=== PATIENT | female | born 1970 | race Caucasian/White ===

== ENCOUNTER 2018-11-30 08:57 | Emergency (ER) | payer MEDICAID, SELFPAY ==
[2018-11-30 08:58] VITALS: BP 114/74; PULSE 101; RESP 16; TEMP 36.9; O2SAT 100; BMI 32.1
--- NOTE | 2018-11-30 09:10 | ED.VISSUMM ---
- ER Visit Summary Date of Service: 11/30/18 Chief Complaint: [Gingival erythema and dental pain] History of Present Illness: The patient is a 48 F [presents the emergency department with complaint of redness and swelling to her gums as well as some mild dental discomfort. Patient states that she was recently in [facility] where they were treating her with what she believed was Zithromax. Patient states her gums started to feel better but then she was released from [facility] and over the last couple weeks she is had increased discomfort. Patient [facility] however they told her they would need to make her an appointment to see the dentist. Patient's mostly concerned about infection as she has a foul taste in her mouth at times. Patient denies any fevers. Patient states that she has bad dentition and has had most her life. Patient has had multiple dental extractions in the past and feels like she may need to have all her teeth pulled.] Physical Examination: [HEENT-PERRLA, EOMI. Cranial nerves II through XII grossly intact. TMs clear. Mucous membranes moist. No adenopathy. Dental-patient has diffuse faint erythema of the upper gingiva as well as lower gingiva. Patient has diffuse tenderness to palpation of the upper teeth. She is had multiple dental extractions. There is no discrete abscess noted. Uvula midline with no trismus. There is no facial erythema or cellulitis. No adenopathy. Cardiovascular-regular rate and rhythm without murmur or ectopy Lungs-clear to auscultation, chest wall stable without crepitus or subcu emphysema Abdomen-normoactive bowel sounds, soft, nontender, no rebound or rigidity, no peritoneal signs. Extremities-intact ?4, normal range of motion, normal pulses, atraumatic] Test Results: [None indicated] Emergency Department Course and Treatment: [Patient will be started on clindamycin and given first dose in the emergency department] Treatment Plan: [She will be treated with clindamycin and given a list of dentists in the area.] Disposition: [Discharged home in stable condition. Patient advised to return if increasing redness, pain, fever, swelling, or condition should worsen anyway.] Impression: [Dental pain Gingivitis] This note was generated with [employer] dictation software. It may contain incorrect words, spelling, and punctuation that were not noted in review of the chart prior to signing ED Disposition - Plan for ED Patient: Referrals: NOT,DEFINED [Primary Care Provider] -
--- NOTE | 2018-11-30 09:13 | ED.DCSUM_ITS ---
- ER Visit Summary Date of Service: 11/30/18 Chief Complaint: [Gingival erythema and dental pain] History of Present Illness: The patient is a 48 F [presents the emergency department with complaint of redness and swelling to her gums as well as some mild dental discomfort. Patient states that she was recently in group home where they were treating her with what she believed was Zithromax. Patient states her gums started to feel better but then she was released from group home and over the last couple weeks she is had increased discomfort. Patient tried to walk into the free clinic today however they told her they would need to make her an appointment to see the dentist. Patient's mostly concerned about infection as she has a foul taste in her mouth at times. Patient denies any fevers. Patient states that she has bad dentition and has had most her life. Patient has had multiple dental extractions in the past and feels like she may need to have all her teeth pulled.] Physical Examination: [HEENT-PERRLA, EOMI. Cranial nerves II through XII grossly intact. TMs clear. Mucous membranes moist. No adenopathy. Dental- patient has diffuse faint erythema of the upper gingiva as well as lower gingiva. Patient has diffuse tenderness to palpation of the upper teeth. She is had multiple dental extractions. There is no discrete abscess noted. Uvula midline with no trismus. There is no facial erythema or cellulitis. No adenopathy. Cardiovascular-regular rate and rhythm without murmur or ectopy Lungs-clear to auscultation, chest wall stable without crepitus or subcu emphysema Abdomen-normoactive bowel sounds, soft, nontender, no rebound or rigidity, no peritoneal signs. Extremities-intact ?4, normal range of motion, normal pulses, atraumatic] Test Results: [None indicated] Emergency Department Course and Treatment: [Patient will be started on clindamycin and given first dose in the emergency department] Treatment Plan: [She will be treated with clindamycin and given a list of dentists in the area.] Disposition: [Discharged home in stable condition. Patient advised to return if increasing redness, pain, fever, swelling, or condition should worsen anyway.] Impression: [Dental pain Gingivitis] This note was generated with [employer] dictation software. It may contain incorrect words, spelling, and punctuation that were not noted in review of the chart prior to signing ED Disposition - Plan for ED Patient: Referrals: NOT,DEFINED [Primary Care Provider] -
--- NOTE | 2018-11-30 09:13 | ED.DEP ---
ED Disposition - Plan for ED Patient: Instructions: ED Tooth Pain, Understanding Gingivitis Prescriptions: Clindamycin HCl [Cleocin] 300 mg PO Q6H #40 cap Referrals: NOT,DEFINED [Primary Care Provider] - Additional Instructions: see a dentist
[2018-11-30] MEDS: Clindamycin HCl 150 MG Capsule 300 MG PO (09:27)
[2018-11-30 09:38] VITALS: TEMP 36.9
== END 2018-11-30 09:40 | disposition home or self-care (01) ==
PROVIDERS: Emergency Provider Emergency Medicine
DX: K08.89 Other specified disorders of teeth and supporting structures (principal); K05.10 Chronic gingivitis, plaque induced; Z72.0 Tobacco use
CPT/HCPCS: 99282

== ENCOUNTER 2019-09-29 18:50 | Emergency (ER) | payer MEDICAID, SELFPAY ==
[2019-09-29 18:51] VITALS: BP 104/69; PULSE 106; RESP 16; TEMP 36.9; O2SAT 99; BMI 29.2
--- NOTE | 2019-09-29 19:02 | ED.VIS.GEN ---
History of Present Illness Chief Complaint: General Illness Informant: Patient Onset: Yesterday Current Severity: Moderate Maximum Severity: Moderate Narrative: Patient presents primarily secondary to right ear pain that started yesterday. She states she had cough and congestion for the past couple of weeks. Yesterday she developed significant right ear pain. She also complains of heartburn symptoms. She has been taking quite a bit of ibuprofen with her recent illness. She currently takes something [id number] for reflux. She does not currently the primary care physician. Past Medical History - Allergies and Home Meds Allergies/Adverse Reactions: Allergies Penicillins [PCN] Allergy (Verified 11/30/18 08:57) Anaphylaxis Primary Care Physician: Care Physician,No Primary [Primary Care Provider] - Prior records reviewed: Yes Past Medical History: None Smoking Status: Current every day smoker Review of Systems General: Denies: Fever Eyes: Denies: Visual changes - bilaterally ENT: Reports: Right ear pain Cardiovascular: Denies: Chest pain Respiratory: Reports: Cough, - - Wheezing at night Gastrointestinal: Reports: Abdominal pain, - - Reflux Genitourinary: Denies: Dysuria Musculoskeletal: Denies: Myalgias, Extremity Pain Skin: Denies: Rash Neurological: Denies: Headache Hematologic: Denies: Easy bruising, Easy bleeding Allergy: Denies: Uticaria Physical Exam Vital Signs/Narrative: Vital Signs Temp Pulse Resp BP Pulse Ox 09/29/19 18:51 98.4 F 106 H 16 104/69 99 Inital Vital Signs reviewed: Yes General: Well nourished, Well developed Head: Normocephalic Eyes: Perrl, EOMI ENT: Moist mucous membranes, - - Right TM erythematous and bulging. Left TM normal. Posterior pharynx examination unremarkable. Neck: Supple Cardiovascular: Regular rate, Regular rhythm Respiratory: No distress, CTA bilaterally Abdomen: Soft, Nontender, Normal bowel sounds Extremities: Nontender Skin: Normal color, No rash Neurological: Alert, Oriented x3 Psychological: Normal affect Diagnostic/Tx/Re-eval - Medical Decision Making Patient does have evidence of right otitis media. Antibiotics for this will cover bronchitis so I do not think an x-ray of her chest will really change our management at this time. Patient voices understanding and agreement. She does have a penicillin allergy and will be treated with a course of Zithromax. She will also be given Pepcid here for reflux and written a prescription for Prilosec. ED Disposition - Plan for ED Patient: Disposition: Home or Assisted Living Diagnosis: Otitis media, GERD (gastroesophageal reflux disease) Instructions: OTITIS MEDIA, Abx Tx (Adult), GERD (Adult) Prescriptions: Omeprazole [Prilosec] 20 mg PO DAILY #30 cap Transmission Status: Pending to [place] [address] [facility]. Azithromycin [Zithromax] 250 mg PO DAILY #4 tab Transmission Status: Pending to [facility] [facility]. Referrals: Fabrice Navarrete MD [STAFF PHYSICIAN] - As Needed
[2019-09-29] MEDS: Famotidine 20 MG Tablet 40 MG PO (19:13)
[2019-09-29] MEDS: Azithromycin 250 MG Tablet 500 MG PO (19:13)
== END 2019-09-29 19:33 | disposition home or self-care (01) ==
LOC: ED 19:22
PROVIDERS: Emergency Provider Emergency Medicine
DX: H66.91 Otitis media, unspecified, right ear (principal); K21.9 Gastro-esophageal reflux disease without esophagitis; F17.200 Nicotine dependence, unspecified, uncomplicated
CPT/HCPCS: 99283

== ENCOUNTER → 2020-12-22 16:05 | Outpatient (CLI) | payer MEDICAID, SELFPAY ==
[2020-12-22 15:37] VITALS: BMI 29.2
[2020-12-22 16:58] LABS: Absolute Neutrophil Count 6.5 X10^3/uL (2.0-7.7); Basophil# 0.06 X10^3/uL; Basophil% 0.6 % (0-1); Hematocrit 44.6 % (37-47); Hemoglobin 13.7 g/dL (12.0-15.0); Mean Corp Hgb Conc 30.7 g/dL (32-36); Mean Corpuscular Hgb 29.3 pg (27.0-32.0); Mean Corpuscular Volume 95.5 fL (81-99); Mean Platelet Vol. 9.1 fl (6.2-12.0); Monocyte# 0.64 X10^3/uL; Monocyte% 6.4 % (0-10); NRBC Flagged by Analyzer 0 % (0-5); Neutrophil # 6.46 X10^3/uL (2.7-7.7); Neutrophil % 64.7 % (47-70); Platelet Count 415 K/mm3 (150-450); RBC Distribution Width CV 14.1 % (11.6-14.6); RBC Distribution Width SD 49.1 fl (35.1-43.9); Red Blood Count 4.67 M/mm3 (4.2-5.4)
[2020-12-22 17:28] LABS: Anion Gap 4 (5-15); BUN 13 mg/dL (7-18); BUN/Creat Ratio 13.7 RATIO (10-20); Chloride 104 mmol/L (98-107); Creatinine, Serum 0.95 mg/dL (0.55-1.02); EST Glomerular Filtration Rate 66 mL/min (>60); Est Glom Filt Rate - Afr Amer 80 mL/min (>60); Glucose 94 mg/dL (74-106); Sodium Level 141 mmol/L (136-145); Thyroid Stim Hormone (TSH) 3.45 uIU/mL (0.358-3.74)
== END ==
PROVIDERS: PCP Family Medicine; Referring Provider Family Medicine; Visit Provider Family Medicine
DX: K21.9 Gastro-esophageal reflux disease without esophagitis (principal)
CPT/HCPCS: 36415; 80048; 84443; 85025

== ENCOUNTER → 2021-05-12 10:23 | Outpatient (CLI) | payer MEDICAID, SELFPAY ==
[2021-05-12 12:17] LABS: Absolute Lymphocyte Count 1.87 X10^3/uL (0.83-4.51); Absolute Neutrophil Count 4.1 X10^3/uL (2.0-7.7); Basophil# 0.01 X10^3/uL; Basophil% 0.1 % (0-1); Eosinophil# 0.03 X10^3/uL; Eosinophils% 0.4 % (0-5); Hematocrit 45.1 % (37-47); Hemoglobin 13.9 g/dL (12.0-15.0); Lymphocyte # 1.87 X10^3/ul (0.83-4.51); Lymphocyte % 27.4 % (19-41); Mean Corp Hgb Conc 30.8 g/dL (32-36); Mean Corpuscular Hgb 28.9 pg (27.0-32.0); Mean Corpuscular Volume 93.8 fL (81-99); Mean Platelet Vol. 9.5 fl (6.2-12.0); Monocyte# 0.76 X10^3/uL; Monocyte% 11.1 % (0-10); NRBC Flagged by Analyzer 0 % (0-5); Neutrophil # 4.12 X10^3/uL (2.7-7.7); Neutrophil % 60.4 % (47-70); Platelet Count 331 K/mm3 (150-450); RBC Distribution Width CV 15.2 % (11.6-14.6); RBC Distribution Width SD 52.7 fl (35.1-43.9); Red Blood Count 4.81 M/mm3 (4.2-5.4); White Blood Count 6.8 K/mm3 (4.4-11.0)
[2021-05-12 12:39] LABS: Vitamin B12 486 pg/mL (211-911); Vitamin D,25 Hydroxy 22.1 ng/mL
[2021-05-12 12:40] LABS: ALB/GLOB Ratio 0.7 RATIO (0.9-2.4); AST(SGOT) 31 U/L (15-37); Alanine Aminotransfer ALT/SGPT 37 U/L (13-56); Alkaline Phosphatase 59 U/L (45-117); Anion Gap 2 (5-15); BUN 13 mg/dL (7-18); BUN/Creat Ratio 13.7 RATIO (10-20); Calcium,Total 8.7 mg/dL (8.5-10.1); Chloride 102 mmol/L (98-107); Creatinine, Serum 0.95 mg/dL (0.55-1.02); EST Glomerular Filtration Rate 66 mL/min (>60); Est Glom Filt Rate - Afr Amer 80 mL/min (>60); Globulin 4.1 g/dL (2.2-4.2); Glucose 89 mg/dL (74-106); Potassium 5.3 mmol/L (3.5-5.1); Protein, Total 7.1 g/dL (6.4-8.2); Sodium Level 135 mmol/L (136-145); Thyroid Stim Hormone (TSH) 8.71 uIU/mL (0.358-3.74); Uric Acid 4.2 mg/dL (2.6-6.0)
== END ==
PROVIDERS: PCP Family Medicine; Referring Provider Physician Assistant; Visit Provider Physician Assistant
DX: R60.0 Localized edema (principal); F32.9 Major depressive disorder, single episode, unspecified; M25.579 Pain in unspecified ankle and joints of unspecified foot; R20.8 Other disturbances of skin sensation; Z51.81 Encounter for therapeutic drug level monitoring
CPT/HCPCS: 36415; 80053; 82306; 82607; 84443; 84550; 85025

== ENCOUNTER 2021-09-20 18:43 | Outpatient (CLI) | payer MEDICAID, SELFPAY ==
--- NOTE | 2021-09-20 18:45 | CT_ITS ---
INDICATION: upper abdominal pain EXAMINATION: CT Abdomen And Pelvis W/ Contrast Injection TECHNIQUE: Helically acquired images were obtained of the abdomen and pelvis after IV contrast. A radiation dose optimization technique was used for this scan. IV Contrast dosage and agent: Oral and amp; IV Readi-CAT and amp; 100mL Isovue-300 Oral contrast: None. COMPARISON: None. FINDINGS: Visualized lung bases: Unremarkable Liver: Unremarkable Gallbladder: Unremarkable Spleen: Unremarkable Pancreas: Unremarkable Adrenal Glands: Unremarkable Kidneys: Bilateral renal cysts largest measures 1.5 cm and is in the right kidney. Vasculature: Unremarkable GI Tract: Hiatal hernia measures 6 cm in diameter. Lymphadenopathy: None Peritoneum: No ascites. Bladder: Unremarkable Reproductive organs: Unremarkable Bones/Soft tissues: Anterior abdominal hernia at the midline superior to the umbilicus measures [address]/Abdomen/Pelvis WITH Contrast IMPRESSION: Bilateral renal cysts largest measures 1.5 cm and is in the right kidney. Hiatal hernia measures 6 cm in diameter. Anterior abdominal hernia at the midline superior to the umbilicus measures 8 cm containing fat. Electronically Signed: Amor Zaman MD at 2:21 EST ,
== END 2021-09-20 23:59 | disposition home or self-care (01) ==
LOC: CT 18:44
PROVIDERS: PCP Family Medicine; Visit Provider Family Medicine
DX: K44.9 Diaphragmatic hernia without obstruction or gangrene (principal); K46.9 Unspecified abdominal hernia without obstruction or gangrene; N28.1 Cyst of kidney, acquired
CPT/HCPCS: 74177; Q9967

== ENCOUNTER 2021-10-07 08:23 | Day surgery (SDC) | payer MEDICAID, SELFPAY ==
[2021-10-07] VITALS (7 sets, daily range): BP systolic 90–108; BP diastolic 56–86; PULSE 89–96; RESP 16–18; TEMP 36.2–36.8; O2SAT 93–99; BMI 36.3
--- NOTE | 2021-10-07 | GASB_PTH ---
PATIENT: BRITTANY ELDER LOC: EN U#:[id number] AGE/SX: 50/F ROOM: RE10/07/[address]: Dr. Drake Mejia MD : 1970 BED: DIS: 10/07/2021 SPEC #: [id number] RECD: 10/07/21 14:40 STATUS: SHARIFA JOSH #: [id number] DERIAN: 10/07/21 00:[address]: Drake Mejia DEPT: SURGICAL PATHOLOGY RECD BY: Tremaine Frederick ENTERED: 10/08/21 10:00 SP TYPE: Gastric Bx OTHR DR: Dr. Javier Rivero DO Tissues: A - Gastric mucous membrane B - Gastric mucous membrane C - Gastric mucous membrane D - Gastric mucous membrane Procedures: Special Stain Group II Surgery Specimen Level IV Alcian Blue/PAS (control) HEADER OPERATION: EGD ([facility]) biopsy PRE-OP DIAGNOSIS: GERD, hiatal hernia TISSUE SUBMITTED: A ? Antrum biopsy for H. pylori and path, B ? GE junction biopsy, C ? White plaque gastric cardia biopsy, D ? Random gastric body biopsy MICROSCOPIC DIAGNOSIS A. Gastric antrum, biopsy: Mild chronic inflammation. See comment. B. Gastroesophageal junction, biopsy: Mild chronic inflammation. No evidence of goblet cell metaplasia. See comment. C. Gastric cardia, biopsy: Minimal chronic inflammation. No evidence of malignancy. See comment. D. Gastric mucosa, random biopsy: Minimal chronic inflammation. AM:dickson 10/11/2021 COMMENT A. The results of immunohistochemistry for Helicobacter pylori will be reported separately ([id number]). B. Alcian blue/PAS stain with matched control supports the above diagnosis. C. Immunohistochemistry ([id number]) supports the above diagnosis. Case has been reviewed in consultation with Dr. Adamson who concurs with the above diagnosis. IDC:SJ MICROSCOPIC DESCRIPTION Slides are reviewed. GROSS DESCRIPTION A - Received in fixative is one container labeled with the patient's name and designated antrum biopsy. The specimen consists of two irregular fragments of light gonsalez soft tissue that in aggregate measure 0.5 x 0.4 x 0.1 cm. The specimen is totally submitted in one cassette. B - Received in fixative is one container labeled with the patient's name and designated GE junction biopsy. The specimen consists of multiple irregular fragments of light gonsalez soft tissue that in aggregate measure 1 x 0.5 x 0.1 cm. The specimen is totally submitted in one cassette. C - Received in fixative is one container labeled with the patient's name and designated white plaque gastric cardia biopsy. The specimen consists of multiple irregular fragments of light gonsalez soft tissue that in aggregate measure 1 x 0.3 x 0.1 cm. The specimen is totally submitted in one cassette. D - Received in fixative is one container labeled with the patient's name and designated random gastric body biopsy. The specimen consists of two irregular fragments of light gonsalez soft tissue that in aggregate measure 0.4 x 0.3 x 0.1 cm. The specimen is totally submitted in one cassette. / SJ:rg 10/08/2021 TC:3 CPT: 66239 x4, 26959
[2021-10-07] MEDS: Lactated Ringers 1,000 ML 15 ML IV (09:11)
--- NOTE | 2021-10-07 09:30 | IMM_PTH ---
PATIENT: BRITTANY ELDER LOC: EN U#:[id number] AGE/SX: 50/F ROOM: RE10/07/[address]: Dr. Drake Mejia MD : 1970 BED: DIS: 10/07/2021 SPEC #: [id number] RECD: 10/08/21 09:30 STATUS: SHARIFA RERebekah #: [id number] DERIAN: 10/07/21 09:[address]: Drake Mejia DEPT: IMMUNOHISTOCHEMISTRY RECD BY: Francesca Eric ENTERED: 10/08/21 09:31 SP TYPE: IMMUNO OTHR DR: Dr. Javier Rivero DO Tissues: A - Stomach, NOS C - Gastric mucous membrane Procedures: H Pylori (initial) CK20 (add) CK7 (add) MACRO (add) P53 (add) Vimentin (add) Pankeratin (initial) S-100 (add) PHYSICIAN & INSTITUTION [place] [id number] SPECIMEN INFORMATION: Tissue Source: A ? Antrum biopsy, C ? White plaque gastric cardiac biopsy Clinical Info: GERD, hiatal hernia Specimen Number: [id number] A & C CPT code: 50591 x2, 18414 x6 METHODOLOGY: Deparaffinized sections of prefer/formalin-fixed tissue or PAP/DQ stained slides are incubated with monoclonal/polyclonal antibodies/oligonucleotide probes. Localization is made via biotin free immunoperoxidase method. Appropriate controls are performed and reacted as expected. Results on target cell population are indicated in the following table: RESULTS: ANTIBODY / CLONE RESULT Block A H Pylori (polyclonal) negative Block C AE1-3 (AE1/AE3/PCK26) negative CK7 (OV-TL12/30) negative CK20 (KS20.8) positive Vimentin (V9) negative Macro (HAM-56) negative S-100 (4C4.9) negative P53 (DO-7) negative These tests were developed and their performance characteristics determined by [facility]. They may not have been cleared or approved by the U.[place]. Food and Drug Administration. The FDA has determined that such clearance or approval is not necessary. The above immunohistochemical/dualISH markers are ordered and reviewed by the pathologist. INTERPRETATION: A. Antrum biopsy: Negative for Helicobacter pylori organisms. C. White plaque gastric cardiac biopsy: No evidence of malignancy. AM:dickson 10/12/2021
--- NOTE | 2021-10-07 10:39 | HP.PCM_ITS ---
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: No Is patient in pain?: No Allergies Penicillins [PCN] Allergy (Verified 09/30/21 13:58) Anaphylaxis Medications fluticasone propionate 50 mcg/actuation nasal spray,suspension 1 spray INTRANASAL BID PRN #16 g 05/12/21 [Rx Confirmed 09/30/21] cetirizine 5 mg tablet 5 mg PO DAILY PRN #30 tab 09/15/21 [Rx Confirmed 09/30/21] furosemide 40 mg tablet 40 mg PO Q OTHER DAY #30 tab 09/15/21 [Rx Confirmed 09/30/21] lansoprazole 30 mg capsule,delayed release 30 mg PO DAILY #30 cap 09/15/21 [Rx Confirmed 09/30/21] levothyroxine 50 mcg tablet 50 mcg PO DAILY #30 tab 09/15/21 [Rx Confirmed 09/30/21] promethazine-DM 6.25 mg-15 mg/5 mL oral syrup 5 ml PO Q6H PRN #118 ml 09/22/21 [Rx Confirmed 09/30/21] PFSH Medical History Arthritis Chronic neck pain Depression GERD (gastroesophageal reflux disease) Surgical History History of hysterectomy Family History Grandmother Cancer cervical Diabetes Other Anxiety Arthritis Social History Smoking Status: Current every day smoker tobacco type: cigarettes Tobacco: How many years used: 35 alcohol intake: never substance use type: does not use what type of physical activity do you participate in: walking frequency: daily HPI HPI HPI: BRITTANY ROBERTSON, is a 50 F who presents to the office today for complaints of heartburn, acid reflux, and newly?recognized abdominal wall hernia. They are referred for surgical consultation from Dr. Rivero. Patient states that her reflux has been present for years but has become worse over the last year. She states that the symptoms occur despite faithful use of Prevacid. Symptoms include aspirating in her sleep?particularly when lying flat as well as some bloating and nausea/vomiting. She notes some food triggers being milk, tomato sauces, and coffee. She has taken measures to try to reduce her consumption of these triggers. She states she works third shift so it is sometimes challenging to plan her eating times, but that she eats when she feels flatter. Despite the symptoms, she has experienced approximately 40 pound weight gain in the last 6 months. She admits this is due to too many calories and to little exercise. She is a current everyday smoker. Patient has a history of an EGD performed which she estimates was approximately 12 years ago at [facility]. She was told that she has high acid, but does not recall any other significant findings. Around the same time, a gallbladder work-up was begun. While she had some sludge, she was not told there is any indication for surgical intervention. She believes that her gallbladder does give her trouble from time to time since she has had a number of other family members who have required removal of theirs. However, she states that when she has abdominal pain that radiates to her back?this is at least partially improved through the use of Prevacid. She has not had any recent imaging of this structure. Along with the patient's upper scope, she states that she underwent a colonoscopy 6 to 7 years ago. She relates that there were no polyps found, but she was also not given any specific follow-up instructions. She states the scope was occasioned by a history of constipation. She states that the symptoms persist, but she is able to have a bowel movement once daily. She denies any blood with these bowel movements. There is minimal straining with a stool and she estimates it takes 5 to 6 minutes to pass a stool. She does relay that she has a positive family history with a paternal grandmother who was diagnosed with colon cancer in her 40s. She denies any family history for IBD or diverticulitis. Mrs. Robertson also comments on a new abdominal wall hernia. She states that she is unsure how it came to be. She has not had any prior surgery in this area (confirming a surgical history of partial hysterectomy and tubal ligation). 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 She also states that she had a bad cough develop over the last couple of years and questions whether this may be related. She believes her hernia has been present for the last [address] nataly ging of the abdomen pelvis was recently obtained (09/20/2021) and shows the ventral hernia (as well as a hiatal hernia) containing fat. ROS General General: Yes weight change and fatigue; No appetite, colon cancer, breast cancer or weakness HEENT HEENT: No difficulty swallowing, eye injury, eye surgery, swollen glands or hoarseness Endo Endocrine: Yes thyroid disease; No diabetes mellitus, thyroid cancer, Hair loss, heat intolerance or cold intolerance Skin Skin: No rash or changing moles Musc Musculoskeletal: Yes back problems and arthritis; No rheumatoid arthritis, gout or joint pain Cardio Cardiovascular: No murmur, pacemaker, heart disease, atrial fibrillation, high blood pressure, heart attack, heart stent, palpitations, shortness of breat with exertion or chest pain Psych Psychiatric: Yes depression; No anxiety or hearing voices Resp Respiratory: Yes shortness of breath, No sleep apnea, Yes cough, No COPD, No asthma, No emphysema and No wheezing Gastro Gastrointestinal: Yes abdominal pain, Yes nausea or vomiting, Yes diarrhea, Yes constipation, No blood in stool, Yes acid reflux, No hemorrhoids, No ulcers, Yes gallbladder problem and No black,tarry stools Jesús Hematologic: No blood thinners, No blood disorders, No bleeding, No anemia and No blood clots Neuro Neurologic: No system reviewed and no additional complaints, except as documented, No as per HPI, No abnormal gait, No abnormal hearing, No abnormal movements, No abnormal speech, No behavioral changes, No burning sensations, No confusion, No convulsions, No disequilibrium, No dizziness, No localized weakness, No frequent falls, No headache(s), No lack of coordination, No loss of vision, No memory loss, No numbness, No other visual disturbances, No radicular pain, No restless legs, No sensory deficit, No syncope, No tingling, No tremor(s), No weakness and No other Exam Const General: cooperative, healthy appearing and no acute distress Nutritional Appearance: obese Orientation: alert, awake and oriented x3 Resp Effort & Inspection: normal respiratory effort Auscultation: clear to auscultation bilaterally, no rales, no rhonchi and no wheezes Cardio Heart Sounds: murmur systolic GI Inspection: obesity and no scars Palpation: hernia ventral (Supraumbilical, tender with palpation, soft, reducible) and tender in the epigastrum; Gar's sign negative Assessment and Plan Assessment and Plan (1) Ventral hernia: Status: Acute Comment: This is a 50-year-old female with a newly?diagnosed ventral hernia containing fat. At this time, patient experiences very little discomfort from this accor ding to her history. She is uncertain and timing of when it first occurred. I have shared with her that this could certainly be addressed surgically, but that her current use of tobacco and recent weight gain would potentially jeopardize her ability to realize a durable repair. Plan - Dr. Drake Mejia MD: ?Continue watchful waiting for now. And plan to prioritize patient's GERD symptoms and hiatal hernia at this time. Patient is encouraged to consider weight loss and smoking cessation (2) Tobacco use: Status: Chronic Comment: 7 cigarettes/day - Roughly 35 pack year history. This tobacco use along with patient's history of GERD increases her risk for esophageal carcinoma. Given that is been some 12 years since her last EGD, I have recommended repeating this exam. This would serve 2 purposes as patient has a hiatal hernia noted on her recent CT imaging from 09/20/2021. I would like to begin work-up for potential hiatal hernia repair and antireflux surgery. Plan - Dr. Drake Mejia MD: Repeat EGD under local MAC (3) GERD (gastroesophageal reflux disease): Status: Acute Comment: Patient with regular reflux symptoms despite chronic use of PPI. This is likely owing to the fact that she does have a rather large hiatal hernia?release per CT imaging. We will begin work-up for this issue with upper endoscopy. I have briefly introduced the topic of fundoplication and the need for an esophagram and manometry as well. Patient encouraged to make lifestyle modifications with timing of eating and continue Prevacid. Plan - Dr. Drake Mejia MD: EGD under local MAC (4) Hiatal hernia: Status: Acute Comment: CT imaging from 09/20/2021 shows hiatal hernia, as mentioned above. Given the structural abnormality, patient is still experiencing breakthrough reflux despite PPI medication. With her limited prior surgical history, she could be a good candidate for hiatal hernia repair with fundoplication. We will plan to begin this work-up with repeat EGD under MAC. Plan - Dr. Drake Mejia MD: EGD under local MAC with tentative plans to continue work-up towards antireflux procedure with hiatal hernia repair (5) Family history of colon cancer: Status: Acute Comment: This is a 50-year-old female with a positive family history of colon cancer in her paternal grandmother (who was diagnosed in her 40s). While patient did have a prior colonoscopy 6 to 7 years ago, she continues to deal with constipation. She is also uncertain whether the findings of her prior scope would have pushed her into a closer interval surveillance. Since we are planning for a EGD, I have recommended that we also proceed with updating her colonoscopy. She is accepting of this recommendation and wishes to proceed as described. Plan - Dr. Drake Mejia MD: Colonoscopy under local MAC. Patient advised that she will require a armored car driver the day of the procedure and we discussed a clear liquid diet 2 days before her procedure with her history of constipation. Coding Level of Care Code Off vis,est,level 4 Diagnoses Ventral hernia K43.9 Tobacco use Z72.0 GERD (gastroesophageal reflux disease) K21.9 Hiatal hernia K44.9 Family history of colon cancer Z80.0 I have re-examined the patient. There are no clinical changes since date of exam. Patient confirms that she completed her prep and her output is now clear. She denies any abdominal pain. She denies any questions regarding the procedure. Plan to proceed for scheduled EGD and update screening colonoscopy under local MAC.
--- NOTE | 2021-10-07 10:52 | OP.EGD_ITS ---
Patient Name: Alena Robertson Procedure Date: 10/07/2021 9:46 AM Date of : 1970 Age: 50 Procedure: Upper GI endoscopy Indications: Gastro-esophageal reflux disease Providers: Drake Mejia MD Referring MD: Drake Mejia MD Medicines: See the Anesthesia note for documentation of the administered medications Patient Profile: Refer to note in patient chart for documentation of history and physical. Patient has symptoms of chronic heartburn. Complications: No immediate complications. Estimated blood loss: Minimal. Procedure: Pre-Anesthesia Assessment: - The heart rate, respiratory rate, oxygen saturations, blood pressure, adequacy of pulmonary ventilation, and response to care were monitored throughout the procedure. After obtaining informed consent, the endoscope was passed under direct vision. Throughout the procedure, the patient's blood pressure, pulse, and oxygen saturations were monitored continuously. The Endoscope was introduced through the mouth, and advanced to the second part of duodenum. The upper GI endoscopy was somewhat difficult due to the patient's agitation. Successful completion of the procedure was aided by increasing the dose of sedation medication. The patient tolerated the procedure. Scope In: 9:58:07 AM Scope Withdrawal Time 0 hours 18 minutes 8 seconds Scope Out: 10:28:31 AM Total Procedure Duration Time 0 hours 30 minutes 24 seconds Findings: The first portion of the duodenum and second portion of the duodenum were normal. No biopsies or other specimens were collected for this exam. Localized mild inflammation characterized by erythema was found in the gastric antrum. Biopsies were taken with a cold forceps for histology. Biopsies were taken with a cold forceps for Helicobacter pylori cultures. Estimated blood loss was minimal. Diffuse nodular mucosa was found in the gastric body. Biopsies were taken with a cold forceps for histology. Estimated blood loss was minimal. A single 8 mm mucosal papule (nodule) with no bleeding and no stigmata of recent bleeding was found in the cardia. Biopsies were taken with a cold forceps for histology. Estimated blood loss was minimal. A large hiatal hernia was present. No biopsies or other specimens were collected for this exam. The Z-line was regular and was found 35 cm from the incisors. Biopsies were taken with a cold forceps for histology. Estimated blood loss was minimal. Coagulation for hemostasis of bleeding caused by the procedure using heater probe was successful. No gross lesions were noted in the proximal esophagus and in the mid esophagus. No biopsies or other specimens were collected for this exam. Impression: - Normal first portion of the duodenum and second portion of the duodenum. No specimens collected. - Gastritis. Biopsied. - Nodular mucosa in the gastric body. Biopsied. - A single mucosal papule (nodule) found in the stomach. Biopsied. - Large hiatal hernia. No specimens collected. - Z-line regular, 35 cm from the incisors. Biopsied. Treated with a heater probe. - No gross lesions in esophagus. No specimens collected. Recommendation: - Discharge patient to home (via wheelchair). - Clear liquid diet today. - Await pathology results. - Telephone my office for pathology results in 1 week. - Continue present medications. Procedure Code(s): --- Professional --- 84033, Esophagogastroduodenoscopy, flexible, transoral; with biopsy, single or multiple Diagnosis Code(s): --- Professional --- K29.70, Gastritis, unspecified, without bleeding K31.89, Other diseases of stomach and duodenum K21.9, Gastro-esophageal reflux disease without esophagitis K44.9, Diaphragmatic hernia without obstruction or gangrene CPT copyright 2017 [employer]. All rights reserved. The codes documented in this report are preliminary and upon dentistry professor review may be revised to meet current compliance requirements. Drake Mejia MD 10/07/2021 10:51:50 AM This report has been signed electronically. Number of Addenda: 0 Note Initiated On: 10/07/2021 9:46 AM
--- NOTE | 2021-10-07 10:53 | OP.CCLET_ITS ---
10/07/2021 Javier Rivero Re : Upper GI endoscopy procedure for Alena Robertson Dear Dr. Rivero This procedure was performed on September. My impressions and recommendations are as follows: Impressions : - Normal first portion of the duodenum and second portion of the duodenum. No specimens collected. - Gastritis. Biopsied. - Nodular mucosa in the gastric body. Biopsied. - A single mucosal papule (nodule) found in the stomach. Biopsied. - Large hiatal hernia. No specimens collected. - Z-line regular, 35 cm from the incisors. Biopsied. Treated with a heater probe. - No gross lesions in esophagus. No specimens collected. Recommendations : - Discharge patient to home (via wheelchair). - Clear liquid diet today. - Await pathology results. - Telephone my office for pathology results in 1 week. - Continue present medications. My findings are described in the full procedure note, which is enclosed. If I can be of further assistance, please feel free to contact me at Doctor phone number(s): , Work: . Sincerely, Drake Mejia MD 10/07/2021 10:51:50 AM This report has been signed electronically.
== END 2021-10-07 23:59 | disposition home or self-care (01) ==
LOC: EN 08:24 → AC 08:24
PROVIDERS: PCP Family Medicine; Referring Provider Family Medicine; Visit Provider Surgery
PROC: 0DJD8ZZ Inspection of Lower Intestinal Tract, Via Natural or Artificial Opening Endoscopic (ICD-10-PCS; CPT 45378; principal; 2021-10-07 09:25)
DX: K21.9 Gastro-esophageal reflux disease without esophagitis (principal); K29.50 Unspecified chronic gastritis without bleeding; K44.9 Diaphragmatic hernia without obstruction or gangrene; K31.89 Other diseases of stomach and duodenum; F17.210 Nicotine dependence, cigarettes, uncomplicated; Z20.822 Contact with and (suspected) exposure to COVID-19; Z80.0 Family history of malignant neoplasm of digestive organs
CPT/HCPCS: 43239; 87426; 88305; 88313; 88341; 88342; C9803; J7120

== ENCOUNTER → 2021-12-14 | Outpatient (CLI) | payer MEDICAID, SELFPAY ==
[2021-12-14 19:19] LABS: Anion Gap 10 (5-15); BUN 17 mg/dL (7-18); BUN/Creat Ratio 18.6 RATIO (10-20); Calcium,Total 9.4 mg/dL (8.5-10.1); Chloride 100 mmol/L (98-107); Creatinine, Serum 0.92 mg/dL (0.55-1.02); EST Glomerular Filtration Rate 69 mL/min (>60); Est Glom Filt Rate - Afr Amer 83 mL/min (>60); Glucose 106 mg/dL (74-106); Potassium 3.6 mmol/L (3.5-5.1); Sodium Level 139 mmol/L (136-145)
== END | disposition home or self-care (01) ==
LOC: BIMLAB 13:51
PROVIDERS: Physician Assistant; PCP Family Medicine; Referring Provider Family Medicine; Visit Provider Family Medicine
DX: R60.0 Localized edema (principal); E87.1 Hypo-osmolality and hyponatremia; E87.5 Hyperkalemia; E03.9 Hypothyroidism, unspecified
CPT/HCPCS: 36415; 80048; 84443

== ENCOUNTER → 2022-06-09 | Outpatient (CLI) | payer MEDICAID, SELFPAY ==
[2022-06-09 08:36] LABS: Bacteria 0 SEEN /hpf (None Seen); Mucous, Urine 0 SEEN /hpf (<or=2+); Red Blood Cells-Urine 0 SEEN /hpf (0-5); Squamous Epithelial Cells - UA 0 SEEN /hpf (5-10); White Blood Cells 0 SEEN /hpf (0-5)
[2022-06-09 12:49] LABS: Color, Urine Yellow (Yellow); Glucose, Dipstick Normal (Normal); Ketone-Dipstick Negative (Negative); Leukocyte Esterase-Dipstick Negative /ul (Negative); Nitrite-Dipstick Negative (Negative); Occult Blood-Urine Negative /ul (Negative); Protein-Dipstick Negative (Negative); Urine Bilirubin Dipstick Negative (Negative); Urine Clarity Clear (Clear); Urine Urobilinogen Normal (Normal)
== END | disposition home or self-care (01) ==
LOC: BIMLAB 08:34
PROVIDERS: PCP Family Medicine; Referring Provider Physician Assistant; Visit Provider Physician Assistant
DX: R39.15 Urgency of urination (principal)
CPT/HCPCS: 81001; 87086; 87088

== ENCOUNTER → 2023-08-29 | Outpatient (CLI) | payer MEDICAID, SELFPAY ==
--- NOTE | 2023-08-29 13:01 | CDU_ITS ---
Reason For Study: carotid stenosis Rt. Velocities/BP Lt. Velocities/BP Prox CCA 69.2/40.9 cm/sec. Prox CCA 84.4/27.7 cm/sec. Mid CCA 67.4/33.3 cm/sec. Mid CCA 139.4/49.9 cm/sec. Dist CCA 69.2/36.2 cm/sec. Dist CCA 126.6/44.4 cm/sec. Prox ICA 36.2/23.9 cm/sec. Prox ICA 456.4/168.5 cm/sec. Mid ICA 57.0/30.5 cm/sec. Mid ICA 224.0./52.4 cm/sec. Dist ICA 46.6/28.6 cm/sec. Dist ICA 156.3/44.8 cm/sec. Rt. ICA/CCA = .8. Lt. ICA/CCA = 3.3. Prox ECA 58.9/25.8 cm/sec. Prox ECA 218.0/53.3 cm/sec. Rt. Vert. 42.8/27.7 cm/sec. Lt. Vert. 69.5/35.8 cm/sec. Right Extracranial There is homogeneous, smooth atherosclerotic plaque noted in the right common carotid artery. There is heterogeneous, irregular atherosclerotic plaque noted in the right internal carotid artery. There is intimal thickening but no significant atherosclerotic plaque noted in the right external carotid artery. Antegrade flow is noted in the right vertebral artery. Left Extracranial There is homogeneous, smooth atherosclerotic plaque noted in the left common carotid artery. There is heterogeneous, irregular atherosclerotic plaque noted in the left internal carotid artery. There is homogeneous, smooth atherosclerotic plaque noted in the left external carotid artery. Retrograde flow noted in the left vertebral artery. Procedure Carotid Duplex 19840. This is a Carotid Duplex examination using B-mode, color flow and specral Doppler. The exam was diagnostic. Prelim called to Dr. Vera's office. Exam performed in department. VL/Carotid Duplex Ultrasound Interpretation Summary Mild (<50%) stenosis right extracranial internal carotid. Severe (>70%) stenosi s left extracranial internal carotid. Flow within the right verterbral artery is antegrade. Flow wi thin the left verterbral artery is retrograde, consistent with a subclavian steal phenomenon. Ordering Physician: Brian Vera Performed By: Fady Bartholomew RVT
--- NOTE | 2023-08-29 13:02 | ADUUE_ITS ---
Reason For Study: PVD, aftercare RIGHT Innominate 246.9 cm/s. Right Subclavian velocity = 157.1 cm/sec. Right Axillary velocity = 61.1 cm/sec. Right Brachial velocity = 81.9 cm/sec. Right Radial velocity = 78.6 cm/sec. Right Ulnar velocity = 55.6 cm/sec. VL/US Art Duplex Unilat UP Extrem Interpretation Summary No stenosis seen right arm with biphasic flow noted. Ordering Physician: Brian Vera Performed By: Fady Bartholomew RVT
--- NOTE | 2023-08-29 13:02 | ART_ITS ---
Reason For Study: PVD Procedure A bilateral upper extremity continuous wave Doppler with analog waveform analysis and segmental pressures. Left Segmental Pressures Left brachial= 88mmHg. Left forearm by way of the radial artery = 89mmHg. Left radial= 95mmHg. Left ulnar= 96mmHg. The left radial waveforms are biphasic. The left ulnar waveforms are biphasic. Right Segmental Pressures Right brachial= 103mmHg. Right forearm pressure by way of the radial artery = 117mmHg. Right radial= 113mmHg. Right ulnar= 119mmHg. The right radial waveforms are biphasic. The right ulnar waveforms are biphasic. Indices Right RA index 1.1 Right UA index 1.16. Left RA index .92 Left UA index .93. VL/Ankle Brachial Index Interpretation Summary Bilateral arms normal WBI at rest. Ordering Physician: Brian Vera Performed By: Fady Bartholomew RVT
== END | disposition home or self-care (01) ==
PROVIDERS: PCP Family Medicine; Referring Provider Surgery Vascular Surgery; Visit Provider Surgery Vascular Surgery
DX: Z48.812 Encounter for surgical aftercare following surgery on the circulatory system (principal); I73.9 Peripheral vascular disease, unspecified; I77.1 Stricture of artery; I65.23 Occlusion and stenosis of bilateral carotid arteries; I10 Essential (primary) hypertension; Z86.73 Personal history of transient ischemic attack (TIA), and cerebral infarction without residual deficits
CPT/HCPCS: 93880; 93922; 93931

== ENCOUNTER → 2024-09-02 | Outpatient (CLI) | payer MEDICAID, SELFPAY ==
[2024-09-02 17:13] LABS: ALB/GLOB Ratio 0.9 RATIO (0.9-2.4); AST(SGOT) 13 U/L (15-37); Alanine Aminotransfer ALT/SGPT 24 U/L (13-56); Albumin, Serum 3.4 g/dL (3.2-5.0); Alkaline Phosphatase 71 U/L (45-117); Anion Gap 7 (5-15); BUN 9 mg/dL (7-18); BUN/Creat Ratio 10.2 RATIO (10-20); Calcium,Total 9.2 mg/dL (8.5-10.1); Chloride 102 mmol/L (98-107); Cholesterol 137 mg/dL (200); Creatinine, Serum 0.88 mg/dL (0.55-1.02); EST Glomerular Filtration Rate 71 mL/min (>60); Est Glom Filt Rate - Afr Amer 86 mL/min (>60); Globulin 3.8 g/dL (2.2-4.2); Glucose 125 mg/dL (74-106); High Density Lipoprotein 44 mg/dL; Protein, Total 7.2 g/dL (6.4-8.2); Sodium Level 139 mmol/L (136-145); Triglycerides 98 mg/dL; Very Low Density Lipoprotein 20 mg/dL (5-40)
== END | disposition home or self-care (01) ==
LOC: BIMLAB 14:41
PROVIDERS: PCP Family Medicine; Referring Provider Family Medicine; Visit Provider Family Medicine
DX: E03.9 Hypothyroidism, unspecified (principal); Z86.73 Personal history of transient ischemic attack (TIA), and cerebral infarction without residual deficits
CPT/HCPCS: 36415; 80053; 80061; 84443

== ENCOUNTER → 2024-11-29 | Outpatient (CLI) | payer BC, SELFPAY | END | disposition home or self-care (01) | LOC: LAB 10:39 → LABSPEC 10:39 | PROVIDERS: PCP Family Medicine; Referring Provider Surgery; Visit Provider Surgery | DX: K43.9 Ventral hernia without obstruction or gangrene (principal) | CPT/HCPCS: 87077; 87081 ==

== ENCOUNTER → 2025-01-02 | Outpatient (CLI) | payer MEDICARE, MEDICAID, SELFPAY ==
--- OUTSIDE RECORDS SUMMARY | 2025-01-02 06:07 | XMS RPT_ITS | CCD ---
Author Organization [facility] Care Team Providers Care Desktop Administrator Name Role Phone Dr. Edison Rivero Primary Care Provider [phone] Dr. Edison Rivero Attending Provider [phone] Dr. Edison Rivero Referring Provider [phone] Dr. Drake Mejia Attending Provider Dr. Drake Mejia Other Provider EDISON RIVERO DO Primary Care Physician Dr. Edison Rivero Primary Care Provider [phone] Dr. Edison Rivero Referring Provider ROSA Gifford Attending Provider Unavailab Dr. Edison Mandel Primary Care Provider [phone] Dr. Edison Rivero Attending Provider Dr. Edison Rivero Referring Provider EIDSON RIVERO DO Primary Care Unavailable LUIS VERA MD Attending Unavailable EDISON RIVERO DO Primary Care Unavailable LUIS VERA MD Attending Unavailable Dr. Edison Rivero DO Primary Care Provider Dr. Edison Rivero DO Attending Provider [phone] Dr. Edison Rivero DO Referring Provider [phone] Dr. Drake Mejia MD Attending Provider Dr. Drake Mejia MD Referring Provider Edison Rivero Referring Unavailable Edison Rivero Primary Care Unavailable Drake Mejia Attending Unavailable Edison Rivero Primary Care Unavailable Edison Rivero Attending Unavailable Edison Rivero Referring Unavailable Edison Rivero Primary Care Unavailable Drake Mejia Attending Unavailable Drake Mejia Referring Unavailable Edison Rivero Primary Care Unavailable Edison Rivero Attending Unavailable Edison Rivero Referring Unavailable Allergies Allergy Classification Reported Allergen(s) Allergy Type Date of Onset Reaction(s) Facility (5 sources) Penicillins; Translations: [Penicillins] Allergy to substance 12-14-2021 Anaphylaxis [facility] (5 sources) Penicillin; Translations: [penicillins] Drug Allergy [facility] Medications Current Medications Medication Drug Class(es) Dates Sig (Normalized) Sig (Original) [id number] 200 actuat albuterol 0.09 mg/actuat metered dose inhaler (3 sources) beta2-Adrenergic Agonist Start: 05-31-2022 Albuterol Sulfate 90 mcg/actuation HFA aerosol inhaler Active 2 NMA INHALATION EVERY 6 HOURS as needed May 31, 2022 12:00am Start: 05-31-2022 take 1 puff(s) by in halation every six hours Albuterol Sulfate Active 2 PUFF INHALATION EVERY 6 HOURS May 30, 2022 11:00pm atorvastatin 40 mg oral tablet (14 sources) HMG-CoA Reductase Inhibitor Start: 05-29-2022 End: 11-21-2024 take 1 tablet by mouth once daily Atorvastatin 40 mg tablet Active 40 mg PO DAILY November 21, 2024 3:29pm cephalexin 500 mg oral tablet (1 source) Cephalosporin Antibacterial Start: 05-18-2022 End: 05-25-2022 cephalexin 500 mg oral tablet Dose : 500 mg = 1 tab(s), Oral, QID, X 7 day(s), # 28 tab(s), 0 Refill(s), 05/25/22 8:37:00 EDT, Finger pain Chemical burn, 82 Start Date: 05/18/22 Stop Date: 05/25/22 Status: Ordered chlorhexidine gluconate 40 mg/ml medicated liquid soap (1 source) Start: 12-03-2024 Chlorhexidine Gluconate (Hibiclens) 4 % liquid Active 1 NMA TOPICAL ONCE 473 December 03, 2024 12:00am shower with once daily x1 week clopidogrel 75 mg oral tablet (10 sources) [id number] Platelet Inhibitor Start: 05-29-2022 End: 10-23-2024 take 1 tablet by mouth once daily Clopidogrel 75 mg tablet Active 75 mg PO DAILY October 23, 2024 3:43pm fluticasone propionate 0.05 mg/actuat metered dose nasal spray (6 sources) Corticosteroid Start: 05-12-2021 End: 05-03-2023 Fluticasone Propionate 50 mcg/actuation spray,suspension Active 1 NMA INTRANASAL TWICE A DAY as needed for allergies, congestion May 03, 2023 3:45pm administer into each nostril Start: 05-12-2021 End: 05-03-2023 take 1 spray(s) nasal route twice daily Fluticasone Propionate Active 1 SPRAY INTRANASAL TWICE A DAY May 03, 2023 2:45pm administer into each nostril furosemide 40 mg oral tablet (20 sources) Loop Diuretic Start: 02-03-2021 End: 04-23-2024 take 1 tablet by mouth every other day Furosemide 40 mg tablet Active 40 mg PO every other day April 23, 2024 12:52pm ibuprofen 800 mg oral tablet (1 source) Nonsteroidal Anti-inflammatory Drug Start: 05-18-2022 End: 05-25-2022 ibuprofen 800 mg oral tablet Dose : 800 mg = 1 tab(s), Oral, TID, PRN for pain, X 7 day(s), # 21 tab(s), 0 Refill(s), 05/25/22 8:37:00 EDT, Finger pain Chemical burn Start Date: 05/18/22 Stop Date: 05/25/22 Status: Ordered lansoprazole 30 mg delayed release oral capsule (20 sources) Proton Pump Inhibitor Start: 12-23-2020 End: 10-23-2024 take 1 capsule by mouth once daily Lansoprazole (Prevacid) 30 mg capsule,delayed release(DR/EC) Active 30 mg PO DAILY October 23, 2024 3:43pm levothyroxine sodium 0.075 mg oral tablet (19 sources) l-Thyroxine Start: 09-03-2024 take 1 tablet by mouth once daily Levothyroxine 75 mcg tablet Active 75 ug PO DAILY September 03, 2024 4:02pm Start: 06-14-2022 levothyroxine 50 mcg (0.05 mg) oral tablet 0 Refill(s) Start Date: 06/14/22 Status: Ordered Start: 09-15-2021 End: 09-03-2024 take 1 tablet by mouth once daily Levothyroxine (Synthroid) 50 mcg tablet Discontinued 50 ug PO DAILY 90 January 04, 2023 1:58pm August 16, 2023 4:20pm Claritin (1 source) Start: 09-20-2015 Claritin Dose : 10 mg =, 0 Refill(s) Start Date: 09/20/15 Status: Ordered methylPREDNISolone 4 mg oral tablet (1 source) Corticosteroid Start: 01-02-2019 Medrol Dosepak 4 mg oral tablet 1 pkt, Oral, Daily, # 21 tab(s), 0 Refill(s) Start Date: 01/02/19 Status: Ordered Mupirocin (1 source) RNA Synthetase Inhibitor Antibacterial Start: 12-03-2024 Mupirocin 2 % ointment Active 1 NMA TOPICAL TWICE A DAY December 03, 2024 12:00am apply to qtip into bilateral nares x1week Tirzepatide (Mounjaro) 2.5 mg/0.5 mL pen injector (1 source) Start: 11-11-2024 Tirzepatide (Mounjaro) 2.5 mg/0.5 mL pen injector Active 2.5 mg SC EVERY WEEK November 11, 2024 12:00am for 4 weeks trolamine salicylate 100 mg/ml topical cream (1 source) Start: 01-02-2019 apply 1 dose topically four times daily as needed for pain trolamine salicylate topical 10% cream Dose = 1 kristie, Topical, QID, PRN for pain, # 90 gram(s), 0 Refill(s) Start Date: 01/02/19 Status: Ordered Completed/Discontinued Medications Medication Drug Class(es) Dates Sig (Normalized) Sig (Original) acetaminophen 500 mg oral capsule (6 sources) Start: 08-04-2022 End: 11-29-2024 take 1 capsule by mouth every six hours as needed for pain Acetaminophen 500 mg capsule Discontinued 500 mg PO EVERY 6 HOURS as needed for pain May 22, 2023 6:07pm November 29, 2024 9:25am albuterol MDI (90 mcg/inh) CFC free inhalation aerosol (4 sources) Start: 05-29-2022 End: 06-28-2022 take 2 puff(s) by inhalation four times daily as needed for wheezing albuterol MDI (90 mcg/inh) CFC free inhalation aerosol 2 puff(s), Inhalation, QID, PRN as needed for wheezing, # 18 gram(s), 0 Refill(s), Pharmacy: [facility] #[id number], 157.5, cm, 05/22/22 4:33:00 EDT, Height Start Date: 05/29/22 Stop Date: 06/28/22 Status: Ordered azithromycin 250 mg oral tablet (4 sources) Macrolide Antimicrobial Start: 09-29-2019 End: 12-22-2020 take 1 tablet by mouth once daily Azithromycin 250 MG tablet Discontinued 250 mg PO DAILY September 29, 2019 1:00am December 22, 2020 3:28pm bisacodyl 5 mg delayed release oral tablet (4 sources) Stimulant Laxative Start: 10-25-2021 End: 05-31-2022 take 4 tablets by mouth once in the evening Bisacodyl (Dulcolax (Bisacodyl)) 5 mg tablet,delayed release (DR/EC) Discontinued 20 mg PO ONCE October 25, 2021 12:00am May 31, 2022 10:20am Take 4 tablets by mouth at 2:00 pm capsaicin 1 mg/ml topical cream (3 sources) Start: 06-09-2022 End: 12-22-2022 Capsaicin 0.1 % cream Discontinued 1 NMA TOPICAL 2 to 3 times per day as needed for pain June 09, 2022 1:00am December 22, 2022 3:10pm do not wash area for at least 30 min after application cetirizine hydrochloride 5 mg oral tablet (9 sources) Histamine-1 Receptor Antagonist Start: 05-12-2021 End: 05-31-2022 take 1 tablet by mouth once daily as needed Cetirizine 5 mg tablet Discontinued 5 mg PO DAILY as needed for allergy symptoms September 15, 2021 3:31pm May 31, 2022 9:35am Start: 09-20-2015 ZyrTEC qDay, 0 Refill(s) Start Date: 09/20/15 Status: Ordered dextromethorphan hydrobromide 3 mg/ml / promethazine hydrochloride 1.25 mg/ml oral solution (4 sources) Phenothiazine, Uncompetitive C-csupnt-D-aspartate Receptor Antagonist, Sigma-1 Agonist Start: 09-22-2021 End: 12-14-2021 take 1 mL by mouth every six hours as needed for cough Promethazine-Dm 6.25-15 mg/5 mL syrup Discontinued 5 mL PO EVERY 6 HOURS as needed for cough 118 September 22, 2021 1:00am December 14, 2021 1:16pm Start: 09-22-2021 End: 12-14-2021 take 1 mL by mouth every six hours Promethazine-Dm Discontinued 5 ML PO EVERY 6 HOURS 118 September 22, 2021 12:00am December 14, 2021 12:16pm magnesium citrate 58.2 mg/ml oral solution (4 sources) Start: 10-25-2021 End: 12-14-2021 Magnesium Citrate solution Discontinued 296 mL PO ONCE October 25, 2021 12:00am December 14, 2021 1:16pm Drink One (1) bottle two (2) days prior to colonoscopy Start: 10-25-2021 End: 12-14-2021 Magnesium Citrate Discontinu ed 296 ML PO ONCE October 24, 2021 11:00pm December 14, 2021 12:16pm Drink One (1) bottle two (2) days prior to colonoscopy melatonin 5 mg oral tablet (13 sources) Start: 06-14-2022 melatonin 1 mg oral tablet Dose : 1 mg = 1 tab(s), Oral, qHS, PRN as needed for insomnia, # 90 tab(s), 0 Refill(s) Start Date: 06/14/22 Status: Ordered Start: 06-14-2022 RA MELATONIN 5 MG TABLET RA MELATONIN 5 MG TABLET, 0 Refill(s), 77.3 Start Date: 06/14/22 Status: Ordered Start: 06-09-2022 End: 11-29-2024 take 1 tablet by mouth at bedtime as needed for sleep Melatonin 5 mg tablet Discontinued 5 mg PO BEDTIME as needed for sleep May 03, 2023 3:45pm November 29, 2024 9:25am naproxen 500 mg oral tablet (1 source) Nonsteroidal Anti-inflammatory Drug Start: 09-20-2015 End: 09-30-2015 Naprosyn 500 mg oral tablet Dose : 500 mg = 1 tab(s), PO, BID, PRN as needed for pain, # 20 tab(s), 0 Refill(s) Start Date: 09/20/15 Stop Date: 09/30/15 Status: Ordered Nicotine (3 sources) Cholinergic Nicotinic Agonist Start: 05-31-2022 End: 07-20-2022 apply 1 dose transdermal route once daily, then apply 1 dose transdermal route once daily Nicotine 21-14-7 mg/24 hr patch, TD daily, sequential Discontinued 0 TD .COMPLEX 56 May 31, 2022 12:00am July 20, 2022 3:36pm apply 1-21 mg NICOTINE PATCH daily for 28 days; follow with 1-14 mg PATCH daily for 14 days, then 1-7mg PATCH daily for 14 days transdermal Start: 05-31-2022 End: 07-20-2022 apply 1 dose transdermal route once daily, then apply 1 dose transdermal route once daily Nicotine Discontinued 0 TD .COMPLEX 56 May 30, 2022 11:00pm July 20, 2022 2:36pm apply 1-21 mg NICOTINE PATCH daily for 28 days; follow with 1-14 mg PATCH daily for 14 days, then 1-7mg PATCH daily for 14 days transdermal Start: 05-31-2022 apply 1 dose transde rmal route once daily, then apply 1 dose transdermal route once daily Nicotine Active 0 TD .COMPLEX 56 May 30, 2022 11:00pm apply 1-21 mg NICOTINE PATCH daily for 28 days; follow with 1-14 mg PATCH daily for 14 days, then 1-7mg PATCH daily for 14 days transdermal ofloxacin 3 mg/ml otic solution (4 sources) Quinolone Antimicrobial Start: 05-12-2021 End: 05-19-2021 Ofloxacin 0.3 % drops Discontinued 10 NMA OTIC DAILY 10 May 12, 2021 12:00am May 18, 2021 12:00am May 19, 2021 12:01am omeprazole 20 mg delayed release oral capsule (5 sources) Proton Pump Inhibitor Start: 09-29-2019 End: 05-12-2021 take 1 capsule by mouth once daily Omeprazole 20 MG capsule Discontinued 20 mg PO DAILY September 29, 2019 1:00am May 12, 2021 9:47am Start: 09-20-2015 PriLOSEC (NF) Oral, qDay, 0 Refill(s) Start Date: 09/20/15 Status: Ordered polyethylene glycol 3350 84297 mg powder for oral solution (4 sources) Osmotic Laxative Start: 10-25-2021 End: 12-14-2021 Polyethylene Glycol 3350 (Miralax) 17 gram/dose powder Discontinued 0 PO .COMPLEX 238 October 25, 2021 12:00am December 14, 2021 1:16pm Mix with gatorade and start colonoscopy mixture at 4 pm Start: 10-25-2021 End: 12-14-2021 Polyethylene Glycol 3350 (Mi ralax) 17 gram/dose powder Discontinued 0 PO .COMPLEX 238 October 24, 2021 11:00pm December 14, 2021 12:16pm Mix with gatorade and start colonoscopy mixture at 4 pm povidone-iodine 100 mg/ml topical solution (2 sources) Antiseptic Start: 08-04-2022 End: 05-03-2023 Povidone-Iodine (Betadine) 10 % solution Discontinued 1 NMA TOPICAL 2 to 4 times per day as needed for disinfection August 04, 2022 1:00am May 03, 2023 3:33pm predniSONE 50 mg oral tablet (1 source) Start: 04-28-2021 End: 05-03-2021 predniSONE 50 mg oral tablet Dose : 50 mg = 1 tab(s), Oral, qDayM, # 5 tab(s), 0 Refill(s), Pain of left ankle joint Start Date: 04/28/21 Stop Date: 05/03/21 Status: Ordered sertraline 50 mg oral tablet (5 sources) Serotonin Reuptake Inhibitor Start: 12-23-2020 End: 09-15-2021 take 1 tablet by mouth once daily Sertraline 50 mg tablet Discontinued 50 mg PO DAILY December 23, 2020 12:00am September 15, 2021 3:16pm terbinafine 250 mg oral tablet (4 sources) Allylamine Antifungal Start: 01-04-2023 End: 11-29-2024 take 1 tablet by mouth once daily Terbinafine Hcl 250 mg tablet Discontinued 250 mg PO DAILY May 03, 2023 3:45pm November 29, 2024 9:25am Problems Active Problems Problem Classification Problem Date Documented Date Episodic/Chronic Abdominal hernia (16 sources) Hernia of anterior abdominal wall; Translations: [Ventral hernia without obstruction or gangrene] Onset: 12-04-2024 Episodic Comment on above: This is a 50-year-ol d female with a newly diagnosed ventral hernia containing fat. At this time, patient experiences very little discomfort from this according to her history. She is uncertain and timing of when it first occurred. I have shared with her that this could certainly be addressed surgically, but that her current use of tobacco and recent weight gain would potentially jeopardize her ability to realize a durable repair.Update 11/29/2024: Patient now a 54-year-old female with interval CVA, thankfully recovered, who has developed increasing discomfort from her ventral hernia. By exam it is difficult to reliably determine the diameter of her fascial defect or the contents of the hernia. It is possible that the neck remains relatively stable in size and she has simply herniated more of her viscera into the hernia sac, but if my exam is true she would otherwise have experience approximately doubling in the size of the hernia. This is based on CT imaging from 2021 that showed the diameter of the epigastric hernia at 3 cm but my exam now showing a possible fascial defect of 6 cm. Further, patient complains of some increased discomfort around the time of bowel movements. It is with the above uncertainty in these reports of negative impact of bowel movements that I would like to obtain updated CT imaging. It is my hope that this will show, clearly, the size of the fascial defect, the contents of the hernia, and thereby inform a surgical approach. At 6 cm patient should still be a candidate for primary fascial defect closure with mesh underlay. (Patient was noted to have an additional smaller umbilical hernia in 2021 and we will look to reevaluate this hernia as well) would plan to attempt this robotically. Patient is once again informed that her obesity and persistent smoking habit remain risks for recurrence. Given the interest in updated imaging I have encouraged her to begin the prescribed Mounjaro as a means of beginning her weight loss journey and hopefully tightening her glucose control perioperatively. She is informed that this medication will need to be held preoperatively once scheduled. CT imaging from 09/20 shows hiatal hernia, as mentioned above. Given the structural abnormality, patient is still experiencing breakthrough reflux despite PPI medication. With her limited prior surgical history, she could be a good candidate for hiatal hernia repair with fundoplication. We will plan to begin this work-up with repeat EGD under [facility]. Abdominal pain (5 sources) Abdominal pain - cause unknown; Translations: [Upper abdominal pain, unspecified] Episodic Acute cerebrovascular disease (11 sources) Cerebral infarction; Translations: [Cerebral infarction, unspecified] Onset: 08-28-2024 Chronic Aortic and peripheral arterial embolism or thrombosis (2 sources) Arterial thrombosis 07-26-2022 Chronic Turner (1 source) Burn of skin of body region; Translations: [Corrosion of unspecified body region, unspecified degree] Onset: 05-18-2022 Episodic Esophageal disorders (11 sources) Gastroesophageal reflux disease; Translations: [Gastro-esophageal reflux disease without esophagitis] Chronic Genitourinary symptoms and ill-defined conditions (1 source) Frequency of micturition; Translations: [Urinary frequency] Episodic Late effects of cerebrovascular disease (2 sources) Hemiplegia of nondominant side as late effect of cerebrovascular disease; Translations: [Hemiplegia and hemiparesis following cerebral infarction affecting left non-dominant side] Chronic Malaise and fatigue (9 sources) Asthenia; Translations: [Weakness] Onset: 05-24-2022 Episodic Mood disorders (7 sources) Depressive disorder; Translations: [Depression] Chronic Mycoses (2 sources) Tinea pedis; Translations: [Tinea pedis] 12-22-2022 Episodic Occlusion or stenosis of precerebral arteries (8 sources) Carotid artery occlusion; Translations: [Occlusion and stenosis of bilateral carotid arteries] Chronic Comment on above: Endarterectomy on Osteoarthritis (4 sources) Arthritis; Translations: [Unspecified osteoarthritis, unspecified site] 12-22-2020 Chronic Other circulatory disease (1 source) Stricture of artery; Translations: [Stricture of artery] Chronic Other connective tissue disease (1 source) Pain in finger; Translations: [Pain in unspecified finger(s)] Onset: 05-18-2022 Episodic Other connective tissue disease (1 source) Hand pain; Translations: [Pain in right hand] Episodic Other nervous system disorders (1 source) Dyslexia AND/OR speech dysfunction; Translations: [Dysarthria and anarthria] Episodic Other skin disorders (2 sources) Mass of skin of right lower limb; Translations: [Disorder of the skin and subcutaneous tissue, unspecified] 12-22-2022 Episodic Other upper respiratory disease (5 sources) Seasonal allergic rhinitis 09-20-2015 Chronic Otitis media and related conditions (4 sources) Otitis media; Translations: [Otitis media, unspecified, unspecified ear] 09-30-2019 Episodic Peripheral and visceral atherosclerosis (8 sources) Peripheral vascular disease; Translations: [Peripheral vascular disease, unspecified] Chronic Comment on above: 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, innominate artery stenting on 05/26/2022 Pneumonia (except that caused by tuberculosis or sexually transmitted disease) (2 sources) Pneumonia; Translations: [Pneumonia, unspecified organism] Episodic Residual codes; unclassified (4 sources) Edema of lower extremity; Translations: [Localized edema] 12-22-2020 Episodic Residual codes; unclassified (4 sources) Family history of cancer of colon; Translations: [Family history of malignant neoplasm of digestive organs] 09-30-2021 Episodic Comment on above: This is a 50-year-ol d female with a positive family history of colon cancer in her paternal grandmother (who was diagnosed in her 40s). While patient did have a prior colonoscopy 6 to 7 years ago, she continues to deal with constipation. She is also uncertain whether the findings of her prior scope would have pushed her into a closer interval surveillance. Since we are planning for a EGD, I have recommended that we also proceed with updating her colonoscopy. She is accepting of this recommendation and wishes to proceed as described. Residual codes; unclassified (5 sources) Tobacco use and exposure - finding; Translations: [Tobacco use] 07-20-2022 Episodic Residual codes; unclassified (1 source) Family history of malignant neoplasm of digestive organs; Translations: [Family history of malignant neoplasm of gastrointestinal tract] Episodic Residual codes; unclassified (1 source) Localized edema; Translations: [Edema] Episodic Residual codes; unclassified (1 source) Insomnia, unspecified; Translations: [Insomnia, unspecified] Episodic Spondylosis; intervertebral disc disorders; other back problems (4 sources) Chronic neck pain; Translations: [Cervicalgia] 12-22-2020 Episodic Thyroid disorders (10 sources) Hypothyroidism; Translations: [Hypothyroidism, unspecified] Onset: 09-17-2024 Chronic Unclassified (3 sources) Drug therapy finding 06-14-2022 Past or Other Problems Problem Classification Problem Date Documented Da te Episodic/Chronic Residual codes; unclassified (4 sources) Tobacco use; Translations: [Tobacco use disorder] Onset: 08-28-2024 Episodic Results Test Name Value Interpretation Reference Range Facility MRSA/SAID NASAL SCREENon MRSA+SAID SCRN Reason for Exam: pre op MRSA MRSA Negative S. AUREUS S. aureus PositiveA Normal [facility] Comment on above: Performed By: #### M 100.651 #### [facility] [address] [place], [address] MRSA screenOrdered By: Srikanth Mejia on 11-29-2024 MRSA DNA NIEVES+probe Ql (Unsp spec) [facility] Surgery Visit Reporton 11-29 Surgery Visit Report [facility] [address] [place] [address] OFFICE VISIT Date of Service: 11/29/24 MR#: [id number] Acct: [id number] Name: BRITTANY ROBERTSON Rep #: [id number] : 1970 Provider: Dr. Drake triana MD Age/Sex: 54/F Location: [facility] Status: Signed Intake Vital Signs 08/28/24 16:28 11/29/24 09:22 Height 5 ft 3 in 5 ft 3 in Weight: 216 lb 8 oz 210 lb BMI 38.3 37.2 BP 124/82 H 105/68 Blood Pressure Location Rt brachial Rt brachial Position Sitting Sitting Respiration 18 18 Pulse 80 92 Pulse Source Palpation Monitor Temp 98 F 97.8 F Temp Source Temporal Temporal Pulse Oximetry (%) 96 Oxygen Delivery Method room air Intake Visit Reasons: Hernia Chief Complaint: hernia Is patient in pain?: Yes Allergies Penicillins (PCN) Allergy (Verified 11/29/24 09:23) Anaphylaxis Medications ???Medication ???Instructions ???Recorded ???Confirmed ???Type albuterol sulfate 90 mcg/actuation 2 puff inhalation Q6H PRN 11/29/24 History aerosol inhaler fluticasone propionate 50 1 spray intranasal BID PRN 3 11/29/24 Rx mcg/actuation nasal allergies, congestion #16 grams spray,suspension furosemide 40 mg tablet 40 mg PO Q OTHER DAY WATER PILL 11/29/24 Rx #30 tabs levothyroxine 75 mcg tablet 75 mcg PO DAILY #90 tabs 09/03/24 11/29/24 Rx clopidogrel 75 mg tablet 75 mg PO DAILY #90 tabs 10/23/24 0 11/29/24 Rx lansoprazole 30 mg capsule,delayed 30 mg PO DAILY ACID REFLUX #90 c aps 10/23/24 11/29/24 Rx release (Prevacid) tirzepatide 2.5 mg/0.5 mL 2.5 mg (0.5 mL) subcut QWEEK #2 mL 11/11/24 11/29/24 Rx subcutaneous pen injector (Mounjaro) atorvastatin 40 mg tablet 40 mg PO DAILY #90 tabs 11/21/24 0 11/29/24 Rx PFSH Medical History CVA (cerebral vascular accident) Wears dentures Post-menopausal Thyroid disease History of hiatal hernia Gastric reflux Smoker Hoarseness Chronic cough History of pain when walking History of edema History of irregular heartbeat Depression Chronic neck pain Arthritis GERD (gastroesophageal reflux disease) Surgical History H/O carotid endarterectomy Hx of tubal ligation History of hysterectomy Family History Grandmother Cancer cervical Diabetes Other Anxiety Arthritis Social History Smoking Status: Current every day smoker (1/2 ppd ) tobacco type: cigarettes Tobacco: How many years used: 35 alcohol intake: never substance use type: does not use what type of physical activity do you participate in: walking frequency: daily HPI HPI HPI: Patient is a 54-year-old female who presents for a follow-up visit related to a complaint of an increasingly symptomatic ventral hernia. She initially established care related to a upper endoscopy that was performed September 2021. In the interim since that time patient unfortunately suffered a stroke but is pleased to report that she has largely regained any dysfunction/deficits on her left side. She also reports that she did not remember being evaluated for her hernia previously. She states that despite the history neurologically, most of her trouble is with her hernia. She reports that it is uncomfortable with coughing and going to the bathroom. She also complains that it seems to affect her balance adversely. She endorses some growth. She confesses to some weight gain related to inactivity following her stroke. She reports that she has been prescribed Mounjaro but has not yet started this medication. Patient is not working at present but does take care of her daughter's dogs. She otherwise denies any participation in strenuous activity. The activity she does do she denies any shortness of breath. She is still smoking following her stroke and reports quitting successfully for only 13 days. As an update from her prior visit she reports that her reflux is okay as long as she is compliant with her PPI medication. Ms. Robertson reports that a move out of [place] is imminent and that she is moving with her daughter to [place] in the next couple weeks. She states she remains committed to having her care here in [place] and has no issues with any follow-up visits here. Patient has no personal history of recurrent cutaneous infections including staph. Pertinent surgical history includes: Hysterectomy ROS General General: Yes weight change (gain) and fatigue; No appetite, colon cancer, breast cancer or weakness HEENT HEENT: No difficulty swallowing, eye injury, eye surgery, swolle (more content not included)... Normal [facility] Albumin to globulin ratioOrd ered By: Edison Rivero on 09-02-2024 Albumin/Globulin [Mass ratio] 0.9 {ratio} 0.9-2.4 [facility] Bilirubin, totalOrdered By: Edison Rivero on 09-02-2024 Bilirubin [Mass/Vol] 0.20 mg/dL 0.20-1.00 [facility] Comment on above: For patients on eltr ombopag therapy, use of Dimension [place] TBIL is not recommended. Blood urea nitrogen (BUN)/cr eatinine ratioOrdered By: Edison Rivero on 09-02-2024 Urea nitrogen/Creatinine [Mass ratio] 10.2 mg/mg 10- [facility] CBC W/Diff, Automatedon 02-0 Absolute Neut Normal 2.0-7.7 [facility] Comment on above: Result Comment: NOT NEEDED Performed By: #### L 500.4050, L100.0100, L500.4100 #### [facility] [address] [place], [address] HCT Normal 37-47 [facility] Comment on above: Result Comment: NOT NEEDED Performed By: #### L 500.4050, L100.0100, L500.4100 #### [facility] [address] [place], [address] HGB Normal 12.0-15.0 [facility] Comment on above: Result Comment: NOT NEEDED Performed By: #### L 500.4050, L100.0100, L500.4100 #### [facility] [address] [place], [address] MCH Normal 27.0-32.0 [facility] Comment on above: Result Comment: NOT NEEDED Performed By: #### L 500.4050, L100.0100, L500.4100 #### [facility] [address] [place], [address] MCHC Normal 32-36 [facility] Comment on above: Result Comment: NOT NEEDED Performed By: #### L 500.4050, L100.0100, L500.4100 #### [facility] [address] [place], [address] MCV Normal 81-99 [facility] Comment on above: Result Comment: NOT NEEDED Performed By: #### L 500.4050, L100.0100, L500.4100 #### [facility] [address] [place], [address] NEUT% Normal 47-70 [facility] Comment on above: Result Comment: NOT NEEDED Performed By: #### L 500.4050, L100.0100, L500.4100 #### [facility] [address] [place], [address] PLT Normal 150-450 [facility] Comment on above: Result Comment: NOT NEEDED Performed By: #### L 500.4050, L100.0100, L500.4100 #### [facility] [address] [place], [address] RBC Normal 4.2-5.4 [facility] Comment on above: Result Comment: NOT NEEDED Performed By: #### L 500.4050, L100.0100, L500.4100 #### [facility] [address] [place], [address] RDW CV Normal 11.6-14.6 [facility] Comment on above: Result Comment: NOT NEEDED Performed By: #### L 500.4050, L100.0100, L500.4100 #### [facility] [address] [place], [address] RDW SD Normal 35.1-43.9 [facility] Comment on above: Result Comment: NOT NEEDED Performed By: #### L 500.4050, L100.0100, L500.4100 #### [facility] [address] [place], [address] WBC Normal 4.4-11.0 [facility] Comment on above: Result Comment: NOT NEEDED Performed By: #### L 500.4050, L100.0100, L500.4100 #### [facility] [address] [place], [address] Carbon dioxide measurementOr dered By: Edison Rivero on 09-02-2024 CO2 [Moles/Vol] 29.0 mmol/L 21.0-32.0 [facility] Chloride measurementOrdered By: Edison Rivero on 09-02-2024 Chloride [Moles/Vol] 102 mmol/L 98-107 [facility] Comprehensive Metabolic Prof ilon 09-02-2024 Albumin [Mass/Vol] 3.4 g/dL Normal 3.2-5.[address] [facility] Comment on above: Performed By: #### L 500.4050, L500.4100, L501.9520 #### [facility] [address] [place], [address] Albumin/Globulin [Mass ratio] 0.9 {ratio} Normal 0.9-2.4 [facility] Comment on above: Performed By: #### L 500.4050, L500.4100, L501.9520 #### [facility] [address] [place], [address] ALK P 71 U/L Normal 45-117 [facility] Comment on above: Performed By: #### L 500.4050, L500.4100, L501.9520 #### [facility] [address] [place], [address] ALT [Catalytic activity/Vol] 24 U/L Normal 13-56 [facility] Comment on above: Performed By: #### L 500.4050, L500.4100, L501.9520 #### [facility] [address] [place], [address] AST [Catalytic activity/Vol] 13 U/L Low 15-37 [facility] Comment on above: Performed By: #### L 500.4050, L500.4100, L501.9520 #### [facility] [address] [place], [address] Bilirubin [Mass/Vol] 0.20 mg/dL Normal 0.20-1.00 [facility] Comment on above: Result Comment: For patients on eltrombopag therapy, use of Dimension [place] TBIL is not recommended. Performed By: #### L 500.4050, L500.4100, L501.9520 #### [facility] [address] [place], [address] BUN/CRE 10.2 RATIO Normal 10-20 [facility] Comment on above: Performed By: #### L 500.4050, L500.4100, L501.9520 #### [facility] [address] [place], [address] CA,Total 9.2 mg/dL Normal 8.5-10.1 [facility] Comment on above: Performed By: #### L 500.4050, L500.4100, L501.9520 #### [facility] [address] [place], [address] Chloride [Moles/Vol] 102 mmol/L Normal 98-107 [facility] Comment on above: Performed By: #### L 500.4050, L500.4100, L501.9520 #### [facility] [address] [place], [address] CO2 [Moles/Vol] 29.0 mmol/L Normal 21.0-32.0 [facility] Comment on above: Performed By: #### L 500.4050, L500.4100, L501.9520 #### [facility] [address] [place], [address] Creatinine [Mass/Vol] 0.88 mg/dL Normal 0.55-1.02 [facility] Comment on above: Result Comment: The validity of the calculated GFR GFRAA in patients over 70 years has not been determined. Clinical correlation is essential. Performed By: #### L 500.4050, L500.4100, L501.9520 #### [facility] [address] [place], [address] EST GFR - AA 86 mL/min Normal >60 [facility] Comment on above: Result Comment: Afri can Anguillan GFR Calc Performed By: #### L 500.4050, L500.4100, L501.9520 #### [facility] [address] [place], [address] GAP 7 Normal 5-15 [facility] Comment on above: Performed By: #### L 500.4050, L500.4100, L501.9520 #### [facility] [address] [place], [address] GFR/1.73 sq M.predicted among non-blacks MDRD (S/P/Bld) [Vol rate/Area] 71 mL/min/{1.73_m2} Normal >60 [facility] Comment on above: Result Comment: Non- GFR Calc Performed By: #### L 500.4050, L500.4100, L501.9520 #### [facility] [address] [place], [address] Globulin (S) [Mass/Vol] 3.8 g/dL Normal 2.2-4.2 [facility] Comment on above: Performed By: #### L 500.4050, L500.4100, L501.9520 #### [facility] [address] [place], [address] Glucose [Mass/Vol] 125 mg/dL High 74-[address] [facility] Comment on above: Result Comment: Fast ing Glucose result from 100 to 125 mg/dL suggests IMPAIRED HOMEOSTASIS per A.D.A. criteria. Performed By: #### L 500.4050, L500.4100, L501.9520 #### [facility] [address] [place], [address] Potassium [Moles/Vol] 4.0 mmol/L Normal 3.5-5.1 [facility] Comment on above: Performed By: #### L 500.4050, L500.4100, L501.9520 #### [facility] [address] [place], [address] Sodium [Moles/Vol] 139 mmol/L Normal 136-[address] [facility] Comment on above: Performed By: #### L 500.4050, L500.4100, L501.9520 #### [facility] [address] [place], [address] T PROT 7.2 g/dL Normal 6.4-8.2 [facility] Comment on above: Performed By: #### L 500.4050, L500.4100, L501.9520 #### [facility] [address] [place], [address] Urea nitrogen [Mass/Vol] 9 mg/dL Normal 7-18 [facility] Comment on above: Performed By: #### L 500.4050, L500.4100, L501.9520 #### [facility] [address] [place], [address] ALB Normal 3.2-5.0 [facility] Comment on above: Result Comment: NOT NEEDED Performed By: #### L 500.4050, L100.0100, L500.4100 #### [facility] [address] [place], [address] ALK P Normal 45-117 [facility] Comment on above: Result Comment: NOT NEEDED Performed By: #### L 500.4050, L100.0100, L500.4100 #### [facility] [address] [place], [address] ALT Normal 13-56 [facility] Comment on above: Result Comment: NOT NEEDED Performed By: #### L 500.4050, L100.0100, L500.4100 #### [facility] [address] [place], [address] AST Normal 15-37 [facility] Comment on above: Result Comment: NOT NEEDED Performed By: #### L 500.4050, L100.0100, L500.4100 #### [facility] [address] [place], [address] BUN Normal 7-18 [facility] Comment on above: Result Comment: NOT NEEDED Performed By: #### L 500.4050, L100.0100, L500.4100 #### [facility] [address] [place], [address] BUN/CRE Normal 10-20 [facility] Comment on above: Result Comment: NOT NEEDED Performed By: #### L 500.4050, L100.0100, L500.4100 #### [facility] [address] [place], [address] CA,Total Normal 8.5-10.1 [facility] Comment on above: Result Comment: NOT NEEDED Performed By: #### L 500.4050, L100.0100, L500.4100 #### [facility] [address] [place], [address] CL Normal 98-107 [facility] Comment on above: Result Comment: NOT NEEDED Performed By: #### L 500.4050, L100.0100, L500.4100 #### [facility] [address] [place], [address] CO2 Normal 21.0-32.0 [facility] Comment on above: Result Comment: NOT NEEDED Performed By: #### L 500.4050, L100.0100, L500.4100 #### [facility] [address] [place], [address] CREAT,SERUM Normal 0.55-1.02 [facility] Comment on above: Result Comment: NOT NEEDED Performed By: #### L 500.4050, L100.0100, L500.4100 #### [facility] [address] [place], [address] EST GFR Normal >60 [facility] Comment on above: Result Comment: NOT NEEDED Performed By: #### L 500.4050, L100.0100, L500.4100 #### [facility] [address] [place], [address] EST GFR - AA Normal >60 [facility] Comment on above: Result Comment: NOT NEEDED Performed By: #### L 500.4050, L100.0100, L500.4100 #### [facility] [address] [place], [address] GAP Normal 5-15 [facility] Comment on above: Result Comment: NOT NEEDED Performed By: #### L 500.4050, L100.0100, L500.4100 #### [facility] [address] [place], [address] GLU Normal 74-106 [facility] Comment on above: Result Comment: NOT NEEDED Performed By: #### L 500.4050, L100.0100, L500.4100 #### [facility] [address] [place], [address] Potassium Normal 3.5-5.1 [facility] Comment on above: Result Comment: NOT NEEDED Performed By: #### L 500.4050, L100.0100, L500.4100 #### [facility] [address] [place], [address] T BILI Normal 0.20-1.00 [facility] Comment on above: Result Comment: NOT NEEDED Performed By: #### L 500.4050, L100.0100, L500.4100 #### [facility] [address] [place], [address] T PROT Normal 6.4-8.2 [facility] Comment on above: Result Comment: NOT NEEDED Performed By: #### L 500.4050, L100.0100, L500.4100 #### [facility] [address] [place], [address] Comprehensive Metabolic Profil Normal 136-145 [facility] Comment on above: Result Comment: NOT NEEDED Performed By: #### L 500.4050, L100.0100, L500.4100 #### [facility] [address] [place], [place], [address] Glomerular filtration rate ( GFR) estimationOrdered By: Edison Rivero on 09-02-2024 GFR/1.73 sq M.predicted among non-blacks MDRD (S/P/Bld) [Vol rate/Area] 71 mL/min/{1.73_m2} >60 [facility] Comment on above: Non- GFR Calc Glucose measurementOrdered B y: Edison Rivero on 09-02-2024 Glucose [Mass/Vol] 125 mg/dL High 74-[address] [facility] Comment on above: Fasting Glucose resu lt from 100 to 125 mg/dL suggests IMPAIRED HOMEOSTASIS per A.D.A. criteria. High density lipoprotein (HD L) measurementOrdered By: Edison Rivero on 09-02-2024 Cholesterol in HDL [Mass/Vol] 44 mg/dL >40 [facility] Comment on above: The drugs N-Acetylcy steine and Metamizole may falsely depress this assay. Reference Range HDL <40 mg/dL Low HDL Cholesterol HDL >or= 60 mg/dL High HDL Cholesterol Laboratory - Chemistry and C hemistry - challengeOrdered By: Edison Rivero on 09-02-2024 AST [Catalytic activity/Vol] 13 U/L Low 15-37 [facility] Lipid Profileon 09-02-2024 Cholesterol [Mass/Vol] 137 mg/dL Normal 200 [facility] Comment on above: Result Comment: <200 mg/dL Desirable 200-240 mg/dL Borderline >240 mg/dL High Risk Performed By: #### L 500.4050, L500.4100, L501.9520 #### [facility] [address] [place], [address] Cholesterol in HDL [Mass/Vol] 44 mg/dL Normal [facility] Comment on above: Result Comment: The drugs N-Acetylcysteine and Metamizole may falsely depress this assay. Reference Range HDL <40 mg/dL Low HDL Cholesterol HDL >or= 60 mg/dL High HDL Cholesterol Performed By: #### L 500.4050, L500.4100, L501.9520 #### [facility] [address] [place], [address] Cholesterol in LDL [Mass/Vol] 73 mg/dL Normal 0-130 [facility] Comment on above: Performed By: #### L 500.4050, L500.4100, L501.9520 #### [facility] [address] [place], [address] Cholesterol in VLDL [Mass/Vol] 20 mg/dL Normal 5-40 [facility] Comment on above: Performed By: #### L 500.4050, L500.4100, L501.9520 #### [facility] [address] [place], [address] Triglyceride [Mass/Vol] 98 mg/dL Normal [facility] Comment on above: Result Comment: The drugs N-Acetylcysteine and Metamizole may falsely depress this assay. Serum Triglycerides Reference Interval Normal <150 mg/dL Borderline high 150 - 199 mg/dL High 200 - 499 mg/dL Very High > or = 500 mg/dL Performed By: #### L 500.4050, L500.4100, L501.9520 #### [facility] [address] [place], [address] CHOL Normal 200 [facility] Comment on above: Result Comment: NOT NEEDED Performed By: #### L 500.4050, L100.0100, L500.4100 #### [facility] [address] [place], [address] HDL Normal [facility] Comment on above: Result Comment: NOT NEEDED The drugs N-Acetylcysteine and Metamizole may falsely depress this assay. Performed By: #### L 500.4050, L100.0100, L500.4100 #### [facility] [address] [place], [address] LDL Normal 0-130 [facility] Comment on above: Result Comment: NOT NEEDED Performed By: #### L 500.4050, L100.0100, L500.4100 #### [facility] [address] [place], [address] TRIG Normal [facility] Comment on above: Result Comment: NOT NEEDED The drugs N-Acetylcysteine and Metamizole may falsely depress this assay. Performed By: #### L 500.4050, L100.0100, L500.4100 #### [facility] [address] [place], [address] VLDL Normal 5-40 [facility] Comment on above: Result Comment: NOT NEEDED Performed By: #### L 500.4050, L100.0100, L500.4100 #### [facility] [address] [place], [address] Low density lipoprotein (LDL ) cholesterol measurementOrdered By: Edison Rivero on 09-02-2024 Cholesterol in LDL [Mass/Vol] 73 mg/dL 0-130 [facility] Potassium measurementOrdered By: Edison Rivero on 09-02-2024 Potassium [Moles/Vol] 4.0 mmol/L 3.5-5.1 [facility] Serum anion gap measurementO rdered By: Edison Rivero on 09-02-2024 Anion gap [Moles/Vol] 7 mmol/L 5-15 [facility] Serum globulin measurementOr dered By: Edison Rivero on 09-02-2024 Globulin (S) [Mass/Vol] 3.8 g/dL 2.2-4.2 [facility] Serum or plasma alanine argueta otransferase (ALT) measurementOrdered By: Edison Rivero on 09-02-2024 ALT [Catalytic activity/Vol] 24 U/L 13-56 [facility] Serum or plasma albumin zina urement (mass/volume)Ordered By: Edison Rivero on 09-02-2024 Albumin [Mass/Vol] 3.4 g/dL 3.2-5.[address] [facility] Serum or plasma alkaline wili sphatase measurementOrdered By: Edison Rivero on 09-02-2024 ALP [Catalytic activity/Vol] 71 U/L 45-117 [facility] Serum or plasma calcium zina urement (mass/volume)Ordered By: Edison Rivero on 09-02-2024 Calcium [Mass/Vol] 9.2 mg/dL 8.5-10.[address] [facility] Serum or plasma cholesterol measurement (mass/volume)Ordered By: Edison Rivero on 09-02-2024 Cholesterol [Mass/Vol] 137 mg/dL <200 [facility] Comment on above: <200 mg/dL Desirable 200-240 mg/dL Borderline >240 mg/dL High Risk Serum or plasma creatinine m easurement (mass/volume)Ordered By: Edison Rivero on 09-02-2024 Creatinine [Mass/Vol] 0.88 mg/dL 0.55-1.02 [facility] Comment on above: The validity of the calculated GFR & GFRAA in patients over 70 years has not been determined. Clinical correlation is essential. Serum or plasma thyroid stim ulating hormone (TSH) measurement (units/volume)Ordered By: Edison Rivero on 09-02-2024 TSH Qn 5.000 uIU/mL High 0.358-3.740 [facility] Serum or plasma urea nitroge n measurement (mass/volume)Ordered By: Edison Rivero on 09-02-2024 Urea nitrogen [Mass/Vol] 9 mg/dL 7-18 [facility] Sodium levelOrdered By: Jamari Rivero on 09-02-2024 Sodium [Moles/Vol] 139 mmol/L 136-[address] [facility] Thyroid Stim Hormone (TSH)on 09-02-2024 TSH 5.000 uIU/mL High 0.358-3.740 [facility] Comment on above: Performed By: #### L 500.4050, L500.4100, L501.9520 #### [facility] [address] [place], [address] Total proteinOrdered By: Sol Rivero on 09-02-2024 Protein [Mass/Vol] 7.2 g/dL 6.4-8.[address] [facility] Triglycerides measurementOrd ered By: Edison Rivero on 09-02-2024 Triglyceride [Mass/Vol] 98 mg/dL <199 [facility] Comment on above: The drugs N-Acetylcy steine and Metamizole may falsely depress this assay.Serum Triglycerides Reference Interval Normal <150 mg/dL Borderline high 150 - 199 mg/dL High 200 - 499 mg/dL Very High > or = 500 mg/dL Very low density lipoprotein (VLDL) cholesterol measurementOrdered By: Edison Rivero on 09-02-2024 Very low density lipoprotein (VLDL) cholesterol measurement 20 mg/dL 5-40 [facility] Internal Medicine Office Vis iton 08-28-2024 Internal Medicine Office Visit [facility] [address] [place] [address] [place] [address] OFFICE VISIT Date of Service: 08/28/24 MR#: [id number] Acct: [id number] Name: BRITTANY ROBERTSON Rep #: [id number] : 1970 Provider: Dr. 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 Accompanied by: Self Is patient in pain?: No Allergies Penicillins (PCN) Allergy (Verified 08/28/24 16:25) Anaphylaxis Medications ???Medication ???Instructions ???Recorded ???Confirmed ???Type albuterol sulfate 90 mcg/actuation 2 puff inhalation Q6H PRN 05/31/22 08/28/24 History aerosol inhaler clopidogrel 75 mg tablet 75 mg PO DAILY #90 tabs 07/07/22 08/28/24 Rx fluticasone propionate 50 1 spray intranasal BID PRN 05/03/23 08/28/24 Rx mcg/actuation nasal allergies, congestion #16 grams spray,suspension melatonin 5 mg tablet 5 mg PO HS PRN sleep #30 tabs 05/03/23 08/28/24 Rx terbinafine HCl 250 mg tablet 250 mg PO DAILY #30 tabs 05/03/23 08/28/24 Rx acetaminophen 500 mg capsule 500 mg PO Q6H PRN pain #100 caps 05/22/23 08/28/24 Rx levothyroxine 50 mcg tablet 50 mcg PO DAILY #90 tabs 08/16/23 08/28/24 Rx (Synthroid) furosemide 40 mg tablet 40 mg PO Q OTHER DAY WATER PILL 04/23/24 08/28/24 Rx #30 tabs lansoprazole 30 mg capsule,delayed 30 mg PO DAILY ACID REFLUX #90 caps 04/23/24 08/28/24 Rx release (Prevacid) atorvastatin 40 mg tablet 40 mg PO DAILY #30 tabs 08/02/24 08/28/24 Rx Have you fallen in the past year?: No Nurse's Note: discuss wt loss medication PFSH Medical History CVA (cerebral vascular accident) Wears dentures Post-menopausal Thyroid disease History of hiatal hernia Gastric reflux Smoker Hoarseness Chronic cough History of pain when walking History of edema History of irregular heartbeat Depression Chronic neck pain Arthritis GERD (gastroesophageal reflux disease) Surgical History H/O carotid endarterectomy Hx of tubal ligation History of hysterectomy Family History Grandmother Cancer cervical Diabetes Other Anxiety Arthritis Social History Smoking Status: Current every day smoker tobacco type: cigarettes Tobacco: How many years used: 35 alcohol intake: never substance use type: does not use what type of physical activity do you participate in: walking frequency: daily HPI HPI Chief Complaint: Check up Details: BRITTANY ROBERTSON, is a 53 F who presents to the office today for a checkup. The last time I saw this patient she was attempting to get Social Security disability because of a stroke she had had and she was successful in obtaining that disability. At this time she is concerned about several issues #1 she has a large ventral hernia. #2 she needs to lose some weight. #3 she is concerned about not being able to stop smoking. In addition she needs blood work done to check her cholesterol and other parameters because she takes a fair amount of medications. ROS Const Constitutional: No body ache, excessive sweating, fatigue, fever(s), frequent falls, headache(s), snoring, weakness, weight change, sleep problems or change in appetite Eyes Eyes: No blurry vision, change in vision, eye pain or Light sensitivity ENT ENT: No abnormal hearing, ear or mastoid pain, tinnitus, nasal congestion, headache(s), neck pain or sore throat Resp Respiratory: No cough, shortness of breath, snoring or wheezing Cardio Cardiology: No chest pain at rest, chest pain with exertion, excessive sweating, shortness of breath, dyspnea on exertion, lightheadedness, orthopnea or palpitations Gastro GI: No abdominal pain, change in bowel habits, constipation, cramping, diarrhea, nausea/dyspepsia or vomiting Genitourinary-Female: No burning urination, painful urination, urinary incontinence, urinary frequency, blood in urine, abnormal periods or pelvic pain Musc Musculoskeletal: No abnormal gait, joint pain, back pain, limited range of motion, neck pain, numbness, stiffness, tingling or Arthritis Skin Skin: No dry skin, redness, lesions, itchy eyes, rash or wounds Neuro Neurology: No abnormal gait, abnormal hearing, abnormal speech, dizziness, weakness, frequent falls, headache(s), memory loss, numbness or tingling Psych Psychiatric: N (more content not included)... Normal [facility] CT ANGIOGRAPHY NECK W/CONTRA STon 10-09-2023 CT ANGIOGRAPHY NECK W/CONTRAST ORIGINAL EXAMINATION: CTA OF THE NECK 10/09/2023 2:26 pm TECHNIQUE: CTA of the neck was performed with the administration of intravenous contrast. Multiplanar reformatted images are provided for review. MIP images are provided for review. Stenosis of the internal carotid arteries measured using NASCET criteria. Automated exposure control, iterative reconstruction, and/or weight based adjustment of the mA/kV was utilized to reduce the radiation dose to as low as reasonably achievable. COMPARISON: CTA neck 05/21/2022, CT chest 05/27/2022 HISTORY: ORDERING SYSTEM PROVIDED HISTORY: Reason for Exam: CAROTID STENOSIS FINDINGS: AORTIC ARCH/ARCH VESSELS: There is a brachiocephalic artery stent which appears patent. Mild atherosclerotic change of the aortic arch. 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 The right subclavian artery is patent. No dissection. CAROTID ARTERIES: Moderate irregular noncalcified atherosclerotic plaque of the left carotid bulb and proximal left internal carotid artery, similar to the prior, resulting in about 50-60 % stenosis per NASCET criteria. Mild predominantly noncalcified atherosclerotic plaque of the proximal right internal carotid artery results in less than 50% stenosis per NASCET criteria. No dissection. VERTEBRAL ARTERIES: Mild stenosis of the left vertebral artery origin secondary to mixed calcified and noncalcified atherosclerotic plaque. No dissection or hemodynamically significant stenosis. SOFT TISSUES: Nodular biapical scarring, similar to the prior exam. Calcified granuloma at the left lung apex. No cervical or superior mediastinal lymphadenopathy. The larynx and pharynx are unremarkable. No acute abnormality of the salivary and thyroid glands. BONES: No acute osseous abnormality. Mild degenerative change at C5-C6. No severe bony spinal canal or bony foraminal narrowing. IMPRESSION: Stable moderate 50-60% stenosis of the proximal left internal carotid artery from noncalcified atherosclerotic plaque. Stable mild less than 50% stenosis of the proximal right internal carotid artery from predominantly noncalcified atherosclerotic plaque. Patent right brachiocephalic artery stent. 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 I have personally reviewed the images of this examination and agree with the resident's findings and interpretation. Interpreted by: Tomas Main MD Preliminary Report By: Talia Esquivel Electronically signed By Tomas Main MD Dictated Date: 10/09/2023 2:36:18 PM Prelim Date: 10/09/2023 3:55:07 PM Sign Date: 10/09/2023 3:55:07 PM Ordering Provider: LUIS Smith [facility] [place] Basophil percentageon 2021 Basophil percentage 0 SEEN /hpf 0-5 [facility] Work Phone: Bilirubin Test strip Ql (U)o n 06-09-2022 Bilirubin Ql (U) Negative Negative [facility] Work Phone: Ketones Test strip Ql (U)on 06-09-2022 Ketones Ql (U) Negative Negative [facility] Work Phone: Mucus LM Ql (Urine sed)on Mucus Ql (Urine sed) 0 SEEN /hpf [facility] Work Phone: Nitrite Test strip Ql (U)on 06-09-2022 Nitrite Ql (U) Negative Negative [facility] Work Phone: Protein Test strip Ql (U)on 06-09-2022 Protein Ql (U) Negative Negative [facility] Work Phone: Squamous epithelial cells de tection in urine sediment by light microscopyon 06-09-2022 Epithelial cells.squamous LM Ql (Urine sed) 0 SEEN /hpf 5-10 [facility] Work Phone: Urine blood detectionon 05-31 RBC Ql (U) Negative Negative [facility] Work Phone: RBC Ql (U) 0 SEEN /hpf 0-5 [facility] Work Phone: Urine clarityon 06-09-2022 Clarity (U) Clear Clear [facility] Work Phone: Urine color determinationon 06-09-2022 Color (U) Yellow Yellow [facility] Work Phone: Urine glucose detectionon Glucose Ql (U) Normal mg/dl Normal [facility] Work Phone: Urine leukocyte esterase det ection by dipstickon 06-09-2022 Leukocyte esterase Test strip Ql (U) Negative Negative [facility] Work Phone: Urine pHon 06-09-2022 pH (U) 7.0 [pH] 5.0 - 8.0 [facility] Work Phone: Urine sediment bacteria coun t by microscopy (number/high power field)on 06-09-2022 Bacteria LM.HPF (Urine sed) [#/Area] 0 /[HPF] None Seen [facility] Work Phone: Urine specific gravity measu rementon 06-09-2022 Specific gravity (U) [Rel density] 1.010 1.002-1.030 [facility] Work Phone: Urobilinogen Auto test strip Ql (U)on 06-09-2022 Urobilinogen Ql (U) Normal mg/dl Normal [facility] Work Phone: LABORATORYOrdered By: Conrado on 05-29-2022 aPTT Coag (PPP) [Time] 61.8 s Invalid Interpretation Code 25.0 - 35.0 seconds AH Auto Coag SS Heparin dose (APTT) Heparin IV (05/29/22 7:36 AM) Invalid Interpretation Code AH Auto Coag SS aPTT Coag (PPP) [Time] 50.5 s Invalid Interpretation Code 25.0 - 35.0 seconds AH Auto Coag SS Heparin dose (APTT) Heparin IV (05/29/22 3:51 AM) Invalid Interpretation Code AH Auto Coag SS LABORATORYOrdered By: Ronny Zambrano on 05-28-2022 aPTT Coag (PPP) [Time] 71.0 s Invalid Interpretation Code 25.0 - 35.0 seconds AH Auto Coag SS Heparin dose (APTT) Heparin IV (05/28/22 4:16 AM) Invalid Interpretation Code AH Auto Coag SS LABORATORYOrdered By: SYSTEM SYSTEM on 05-27-2022 Cobalamin (Vitamin B12) [Mass/Vol] 1461 pg/mL Invalid Interpretation Code 211 - 911 pg/mL ADM SS Ferritin [Mass/Vol] 82.6 ng/mL Invalid Interpretation Code 8.0 - 252.0 ng/mL ADM SS Haptoglobin [Mass/Vol] 301 mg/dL Invalid Interpretation Code 40 - 280 mg/dL ADM SS Immature reticulocytes/Total reticulocytes (Bld) 0.56 IRF Invalid Interpretation Code 0.20 - 0.46 IRF Workflow SS Iron [Mass/Vol] 23 ug/dL Invalid Interpretation Code 50 - 170 mcg/dL ADM SS Iron binding capacity [Mass/Vol] 268 mcg/dL Invalid Interpretation Code 250 - 500 mcg/dL ADM SS Iron saturation [Mass fraction] 9 1 Invalid Interpretation Code ADM SS Reticulocytes, Absolute 43.4 103/mcL Invalid Interpretation Code 8.0 - 108.0 10^3/mcL Workflow SS Reticulocytes, Auto 1.1 1 Invalid Interpretation Code 0.2 - 2.3 % Workflow SS Basophils (Bld) [#/Vol] 0.0 103/mcL Invalid Interpretation Code 0.0 - 0.3 10^3/mcL Workflow SS Basophils/100 WBC (Bld) 0.1 % Invalid Interpretation Code 0.0 - 2.5 % AH Workflow SS Calcium [Mass/Vol] 8.4 mg/dL Invalid Interpretation Code 8.7 - 10.4 mg/dL ADM SS Chloride [Moles/Vol] 102 mmol/L Invalid Interpretation Code 98 - 110 mEq/L ADM SS CO2 [Moles/Vol] 33 mmol/L Invalid Interpretation Code 22 - 32 mEq/L ADM SS Creatinine [Mass/Vol] 0.62 mg/dL Invalid Interpretation Code 0.50 - 1.20 mg/dL ADM SS Electrolyte Balance 4.0 mEq/L Invalid Interpretation Code 4.0 - 15.0 mEq/L ADM SS Eosinophils (Bld) [#/Vol] 0.0 103/mcL Invalid Interpretation Code 0.0 - 0.7 10^3/mcL Workflow SS Eosinophils/100 WBC (Bld) 0.0 % Invalid Interpretation Code 0.0 - 6.0 % Workflow SS Erythrocyte distribution width (RBC) [Ratio] 15.8 % Invalid Interpretation Code 11.5 - 15.5 % Workflow SS GFR/1.73 sq M.predicted among blacks MDRD (S/P/Bld) [Vol rate/Area] ml/min/1.73sqm Invalid Interpretation Code ADM SS GFR/1.73 sq M.predicted among non-blacks MDRD (S/P/Bld) [Vol rate/Area] ml/min/1.73sqm Invalid Interpretation Code ADM SS Glucose [Mass/Vol] 167 mg/dL Invalid Interpretation Code 70 - 110 mg/dL ADM SS Hematocrit (Bld) [Volume fraction] 30.8 % Invalid Interpretation Code 34.0 - 46.0 % Workflow SS Hemoglobin (Bld) [Mass/Vol] 9.9 G/dL Invalid Interpretation Code 12.0 - 16.0 G/dL Workflow SS Lymphocytes (Bld) [#/Vol] 1.2 103/mcL Invalid Interpretation Code 0.9 - 4.3 10^3/mcL Workflow SS Lymphocytes/100 WBC (Bld) 11.8 % Invalid Interpretation Code 20.0 - 40.0 % Workflow SS MCH (RBC) [Entitic mass] 26.5 pg Invalid Interpretation Code 27.0 - 33.0 pg AH Workflow SS MCHC 32.0 G/dL Invalid Interpretation Code 32.0 - 36.0 G/dL AH Workflow SS MCV (RBC) [Entitic vol] 82.8 fL Invalid Interpretation Code 80.0 - 99.0 fL AH Workflow SS Monocytes (Bld) [#/Vol] 0.6 103/mcL Invalid Interpretation Code 0.1 - 1.4 10^3/mcL AH Workflow SS Monocytes/100 WBC (Bld) 6.3 % Invalid Interpretation Code 2.0 - 13.0 % AH Workflow SS Neutrophils (Bld) [#/Vol] 8.3 103/mcL Invalid Interpretation Code 2.3 - 8.1 10^3/mcL AH Workflow SS Neutrophils/100 WBC (Bld) 81.8 % Invalid Interpretation Code 50.0 - 75.0 % AH Workflow SS Platelet mean volume (Bld) [Entitic vol] 6.8 fL Invalid Interpretation Code 6.6 - 10.5 fL AH Workflow SS Platelets (Bld) [#/Vol] 405 103/mcL Invalid Interpretation Code 150 - 450 10^3/mcL AH Workflow SS Potassium [Moles/Vol] 3.9 mmol/L Invalid Interpretation Code 3.5 - 5.0 mEq/L ADM SS RBC (Bld) [#/Vol] 3.71 106/mcL Invalid Interpretation Code 4.10 - 5.30 10^6/mcL AH Workflow SS Sodium [Moles/Vol] 139 mmol/L Invalid Interpretation Code 136 - 145 mEq/L ADM SS Urea nitrogen [Mass/Vol] 7.0 mg/dL Invalid Interpretation Code 8.0 - 22.0 mg/dL AH ADM SS Urea nitrogen/Creatinine [Mass ratio] 11.3 ratio Invalid Interpretation Code 10.0 - 22.0 ratio AH ADM SS WBC (Bld) [#/Vol] 10.2 103/mcL Invalid Interpretation Code 4.5 - 10.8 10^3/mcL AH Workflow SS LABORATORYOrdered By: Ronny Zambrano on 05-27-2022 Protein [Mass/Vol] 5.2 G/dL Invalid Interpretation Code 5.7 - 8.2 G/dL ADM SS LABORATORYOrdered By: SYSTEM SYSTEM on 05-26-2022 Basophils (Bld) [#/Vol] 0.0 103/mcL Invalid Interpretation Code 0.0 - 0.3 10^3/mcL AH Workflow SS Basophils/100 WBC (Bld) 0.5 % Invalid Interpretation Code 0.0 - 2.5 % AH Workflow SS Calcium [Mass/Vol] 8.4 mg/dL Invalid Interpretation Code 8.7 - 10.4 mg/dL ADM SS Chloride [Moles/Vol] 104 mmol/L Invalid Interpretation Code 98 - 110 mEq/L ADM SS CO2 [Moles/Vol] 33 mmol/L Invalid Interpretation Code 22 - 32 mEq/L ADM SS Creatinine [Mass/Vol] 0.68 mg/dL Invalid Interpretation Code 0.50 - 1.20 mg/dL ADM SS Electrolyte Balance 4.0 mEq/L Invalid Interpretation Code 4.0 - 15.0 mEq/L ADM SS Eosinophils (Bld) [#/Vol] 0.1 103/mcL Invalid Interpretation Code 0.0 - 0.7 10^3/mcL Workflow SS Eosinophils/100 WBC (Bld) 1.2 % Invalid Interpretation Code 0.0 - 6.0 % Workflow SS Erythrocyte distribution width (RBC) [Ratio] 15.8 % Invalid Interpretation Code 11.5 - 15.5 % Workflow SS GFR/1.73 sq M.predicted among blacks MDRD (S/P/Bld) [Vol rate/Area] ml/min/1.73sqm Invalid Interpretation Code Chemistry S GFR/1.73 sq M.predicted among non-blacks MDRD (S/P/Bld) [Vol rate/Area] ml/min/1.73sqm Invalid Interpretation Code Chemistry S Glucose [Mass/Vol] 94 mg/dL Invalid Interpretation Code 70 - 110 mg/dL ADM SS Hematocrit (Bld) [Volume fraction] 34.3 % Invalid Interpretation Code 34.0 - 46.0 % Workflow SS Hemoglobin (Bld) [Mass/Vol] 11.0 G/dL Invalid Interpretation Code 12.0 - 16.0 G/dL Workflow SS Lymphocytes (Bld) [#/Vol] 2.4 103/mcL Invalid Interpretation Code 0.9 - 4.3 10^3/mcL Workflow SS Lymphocytes/100 WBC (Bld) 25.8 % Invalid Interpretation Code 20.0 - 40.0 % Workflow SS Magnesium [Mass/Vol] 1.8 mg/dL Invalid Interpretation Code 1.6 - 2.4 mg/dL AH ADM SS MCH (RBC) [Entitic mass] 26.4 pg Invalid Interpretation Code 27.0 - 33.0 pg AH Workflow SS MCHC 32.1 G/dL Invalid Interpretation Code 32.0 - 36.0 G/dL AH Workflow SS MCV (RBC) [Entitic vol] 82.1 fL Invalid Interpretation Code 80.0 - 99.0 fL AH Workflow SS Monocytes (Bld) [#/Vol] 0.7 103/mcL Invalid Interpretation Code 0.1 - 1.4 10^3/mcL AH Workflow SS Monocytes/100 WBC (Bld) 7.9 % Invalid Interpretation Code 2.0 - 13.0 % AH Workflow SS Neutrophils (Bld) [#/Vol] 5.9 103/mcL Invalid Interpretation Code 2.3 - 8.1 10^3/mcL AH Workflow SS Neutrophils/100 WBC (Bld) 64.6 % Invalid Interpretation Code 50.0 - 75.0 % AH Workflow SS Platelet mean volume (Bld) [Entitic vol] 7.3 fL Invalid Interpretation Code 6.6 - 10.5 fL AH Workflow SS Platelets (Bld) [#/Vol] 384 103/mcL Invalid Interpretation Code 150 - 450 10^3/mcL AH Workflow SS Potassium [Moles/Vol] 3.7 mmol/L Invalid Interpretation Code 3.5 - 5.0 mEq/L AH ADM SS RBC (Bld) [#/Vol] 4.18 106/mcL Invalid Interpretation Code 4.10 - 5.30 10^6/mcL AH Workflow SS Sodium [Moles/Vol] 141 mmol/L Invalid Interpretation Code 136 - 145 mEq/L ADM SS Urea nitrogen [Mass/Vol] 8.0 mg/dL Invalid Interpretation Code 8.0 - 22.0 mg/dL ADM SS Urea nitrogen/Creatinine [Mass ratio] 11.8 ratio Invalid Interpretation Code 10.0 - 22.0 ratio AH ADM SS WBC (Bld) [#/Vol] 9.2 103/mcL Invalid Interpretation Code 4.5 - 10.8 10^3/mcL AH Workflow SS LABORATORYOrdered By: SYSTEM SYSTEM on 05-25-2022 Basophils (Bld) [#/Vol] 0.0 103/mcL Invalid Interpretation Code 0.0 - 0.3 10^3/mcL AH Workflow SS Basophils/100 WBC (Bld) 0.2 % Invalid Interpretation Code 0.0 - 2.5 % Workflow SS Calcium [Mass/Vol] 8.0 mg/dL Invalid Interpretation Code 8.7 - 10.4 mg/dL ADM SS Chloride [Moles/Vol] 103 mmol/L Invalid Interpretation Code 98 - 110 mEq/L ADM SS CO2 [Moles/Vol] 31 mmol/L Invalid Interpretation Code 22 - 32 mEq/L ADM SS Creatinine [Mass/Vol] 0.62 mg/dL Invalid Interpretation Code 0.50 - 1.20 mg/dL ADM SS Electrolyte Balance 5.0 mEq/L Invalid Interpretation Code 4.0 - 15.0 mEq/L ADM SS Eosinophils (Bld) [#/Vol] 0.0 103/mcL Invalid Interpretation Code 0.0 - 0.7 10^3/mcL Workflow SS Eosinophils/100 WBC (Bld) 0.5 % Invalid Interpretation Code 0.0 - 6.0 % Workflow SS Erythrocyte distribution width (RBC) [Ratio] 15.5 % Invalid Interpretation Code 11.5 - 15.5 % Workflow SS GFR/1.73 sq M.predicted among blacks MDRD (S/P/Bld) [Vol rate/Area] ml/min/1.73sqm Invalid Interpretation Code Chemistry S GFR/1.73 sq M.predicted among non-blacks MDRD (S/P/Bld) [Vol rate/Area] ml/min/1.73sqm Invalid Interpretation Code Chemistry S Glucose [Mass/Vol] 98 mg/dL Invalid Interpretation Code 70 - 110 mg/dL ADM SS Hematocrit (Bld) [Volume fraction] 33.6 % Invalid Interpretation Code 34.0 - 46.0 % Workflow SS Hemoglobin (Bld) [Mass/Vol] 10.6 G/dL Invalid Interpretation Code 12.0 - 16.0 G/dL Workflow SS Lymphocytes (Bld) [#/Vol] 1.7 103/mcL Invalid Interpretation Code 0.9 - 4.3 10^3/mcL Workflow SS Lymphocytes/100 WBC (Bld) 17.3 % Invalid Interpretation Code 20.0 - 40.0 % Workflow SS Magnesium [Mass/Vol] 1.7 mg/dL Invalid Interpretation Code 1.6 - 2.4 mg/dL ADM SS MCH (RBC) [Entitic mass] 25.8 pg Invalid Interpretation Code 27.0 - 33.0 pg AH Workflow SS MCHC 31.6 G/dL Invalid Interpretation Code 32.0 - 36.0 G/dL AH Workflow SS MCV (RBC) [Entitic vol] 81.7 fL Invalid Interpretation Code 80.0 - 99.0 fL AH Workflow SS Monocytes (Bld) [#/Vol] 0.9 103/mcL Invalid Interpretation Code 0.1 - 1.4 10^3/mcL AH Workflow SS Monocytes/100 WBC (Bld) 9.1 % Invalid Interpretation Code 2.0 - 13.0 % AH Workflow SS Neutrophils (Bld) [#/Vol] 7.1 103/mcL Invalid Interpretation Code 2.3 - 8.1 10^3/mcL AH Workflow SS Neutrophils/100 WBC (Bld) 72.9 % Invalid Interpretation Code 50.0 - 75.0 % Workflow SS Platelet mean volume (Bld) [Entitic vol] 6.9 fL Invalid Interpretation Code 6.6 - 10.5 fL Workflow SS Platelets (Bld) [#/Vol] 345 103/mcL Invalid Interpretation Code 150 - 450 10^3/mcL Workflow SS Potassium [Moles/Vol] 3.1 mmol/L Invalid Interpretation Code 3.5 - 5.0 mEq/L ADM SS RBC (Bld) [#/Vol] 4.11 106/mcL Invalid Interpretation Code 4.10 - 5.30 10^6/mcL AH Workflow SS Sodium [Moles/Vol] 139 mmol/L Invalid Interpretation Code 136 - 145 mEq/L ADM SS Urea nitrogen [Mass/Vol] 8.0 mg/dL Invalid Interpretation Code 8.0 - 22.0 mg/dL ADM SS Urea nitrogen/Creatinine [Mass ratio] 12.9 ratio Invalid Interpretation Code 10.0 - 22.0 ratio ADM SS WBC (Bld) [#/Vol] 9.8 103/mcL Invalid Interpretation Code 4.5 - 10.8 10^3/mcL Workflow SS LABORATORYOrdered By: SYSTEM SYSTEM on 05-24-2022 Magnesium [Mass/Vol] 1.7 mg/dL Invalid Interpretation Code 1.6 - 2.4 mg/dL ADM SS No Panel Informationon 05-24 Legionella Urine Ag Presumptive negative for L. pneumophila serogroup 1 antigen in urine, suggesting no recent or current infection. Legionnaire's disease cannot be ruled out since other serogroups and species may also cause disease. [facility] [place] Work Phone: Streptococcus Pneumoniae Urine Antig Presumptive negative for pneumococcal pneumonia, suggesting no current or recent pneumococcal infection. Infection due to Strep pneumoniae cannot be ruled out since the antigen present in the sample may be below the detection limit of the test. [facility] [place] Work Phone: Comment on above: This test has not be en evaluated on patients taking antibiotics for greater than 24 hours or on patients who have recently completed an antibiotic regimen. The accuracy of this test has not been proven in young children. LABORATORYOrdered By: Daljit Sanders on 05-23-2022 Antithrombin actual/normal Chromogenic method (PPP) [Rel catalytic activity/Vol] 41 1 Invalid Interpretation Code 84 - 126 % AH Auto Coag SS aPTT after addition of protein C activator+Factor V depleted plasma/Coagulation surface induced Coag (PPP) [Time ratio] 3.2 ratio Invalid Interpretation Code AH Auto Coag SS Comment on above: Result Comment: This APCV result demonstrates no Resistance to Activated Protein C. dRVVT Coag (PPP) [Time] 45.1 s Invalid Interpretation Code 30.0 - 42.0 seconds AH Auto Coag SS Comment on above: Result Comment: DRVV T Confirmation Test Performed: NEGATIVE Lupus anticoagulant (PPP) [Interp] See Below 6 (05/23/22 9:14 PM) Invalid Interpretation Code AH Auto Coag SS Comment on above: Result Comment: No e vidence of lupus anticoagulant. Platelet Neutraliz. Negative (05/23/22 9:14 PM) Invalid Interpretation Code AH Auto Coag SS Protein C actual/normal Coag (PPP) [Relative time] 46 1 Invalid Interpretation Code >=80% AH Auto Coag SS Protein S Free Ag actual/normal IA (PPP) [Relative mass conc] 105 1 Invalid Interpretation Code 55 - 124 % AH Auto Coag SS LABORATORYOrdered By: WALTER_Suleiman BETO CONTRIBUTOR_SYSTEM on 05-23-2022 Beta-2 Glycoprotein Abs, IgA BESSY Invalid Interpretation Code <=20SAU AH Sendouts SS Comment on above: Result Comment: Perf ormed By: [employer] [address] [place] [id number] Domestic Technician: García Hong MD, PhD Cardiolipin IgA Ab APL 1 Invalid Interpretation Code <12.0APL Sendouts Comment on above: Result Comment: <12 APL Negative 12-20 APL Indeterminate >20 APL Positive The following results were obtained with the [employer] QUANTA Lite AKIRA IgA III GLORIA. Cardiolipin IgA values obtained with the different manufacturers' assay methods may not be used interchangeably. The magnitude of the reported IgA levels cannot be correlated to an endpoint titer. This test is used as an aid in diagnosis of anti-phospholipid syndrome. The test may occasionally be positive in patients with a range of underlying conditions, secondary syphilis, HIV infection, active Hepatitis C, endocarditis, among others. Clinical correlation is required. Performed By: [place] [address] Stockroom Coordinator: Derick Brar III, M.D. CLIA#: [id number] IgG Cardiolipin Ab GPL Invalid Interpretation Code <15.0GPL Sendouts Comment on above: Result Comment: <15 GPL Negative 15-20 GPL Indeterminate >20 GPL Positive The following results were obtained with the [employer] AKIRA IgG III GLORIA. Cardiolipin IgG values obtained with the different manufacturers' assay methods may not be used interchangeably. The magnitude of the reported IgG levels cannot be correlated to an endpoint titer. This test is used as an aid in diagnosis of anti-phospholipid syndrome. The test may occasionally be positive in patients with a range of underlying conditions, secondary syphilis, HIV infection, active Hepatitis C, endocarditis, among others. Clinical correlation is required. Performed By: [place] [address] Stockroom Coordinator: Derick Brar III, M.D. CLIA#: [id number] IgM Cardiolipin Ab 12.5 MPL Invalid Interpretation Code <12.5MPL Sendouts Comment on above: Result Comment: <12. 5 MPL Negative 12.5-20 MPL Indeterminate >20 MPL Positive The following results were obtained with the [employer] QUANTA Lite AKIRA IgM III GLORIA. Cardiolipin IgM values obtained with the different manufacturers' assay methods may not be used interchangeably. The magnitude of the reported IgM levels cannot be correlated to an endpoint titer. This test is used as an aid in diagnosis of anti-phospholipid syndrome. The test may occasionally be positive in patients with a range of underlying conditions, secondary syphilis, HIV infection, active Hepatitis C, endocarditis, among others. Clinical correlation is required. Performed By: [facility] [employer] [address] [place] [address] Stockroom Coordinator: Almita Badillo III#: [id number] MTHFR Interpretation See Note Invalid Interpretation Code AH Sendouts SS Comment on above: Result Comment: Kylee cation for testing: Determine genetic contribution to hyperhomocysteinemia. 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 This genotype may be associated with a mild, clinically insignificant, decrease in MTHFR enzyme activity. This result has been reviewed and approved by Bharati Chavarria M.D. Background Information: Methylenetetrahydrofolate Reductase (MTHFR) 2 Variants Characteristics: Variants in the MTHFR gene may reduce enzyme activity contributing to hyperhomocysteinemia. Although hyperhomocysteinemia was previously reported to be a risk factor for many conditions, especially venous thrombosis and cardiovascular disease, recent meta-analysis casts doubt on whether lifelong moderate homocysteine elevation has an effect on cardiovascular disease. The [employer] Practice Guidelines indicate that individuals with elevated homocysteine and two copies of the c.665C>T variant have an odds ratio of 1.27 for venous thromboembolism. Thus, they recommend MTHFR genotyping not be ordered as part of a routine evaluation for recurrent loss or thromobophilia due to questionable clinical significance. Incidence: The allele frequency of the c.665C>T variant is 0.35 in Caucasians, 0.5 in Hispanics, and 0.12 in Americans. Inheritance: Autosomal recessive; two copies of the c.665C>T variant may be a contributing factor to hyperhomocysteinemia. Variants Tested: c.665C>T(p.Rkj915Ugb) and c.1286A>C(p.Dic106Azj). (legacy names C677T and X7185P, respectively). Clinical Sensitivity: Undefined; hyperhomocysteinemia is caused by genetic, physiologic and environmental factors. MTHFR variants are only one contributing factor. Methodology: Polymerase chain reaction (PCR) and fluorescence monitoring. Analytical Sensitivity and Specificity: 99 percent. Limitations: Only two MTHFR gene variants (c.665C>T and c.1286A>C) are tested. Diagnostic errors can occur due to rare sequence variations. This test was developed and its performance characteristics determined by [facility]. It has not been cleared or approved by the US Food and Drug Administration. This test was performed in a CLIA certified laboratory and is intended for clinical purposes. Counseling and informed consent are recommended for genetic testing. Consent forms are available online. Performed by [facility], [address] [place] [id number] [email or web address] García Hong MD, PHD, Lab. 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 This result is not associated with an increased risk of thromboembolic disease. Thromboembolic disease is a multifactorial disorder and other causes are not excluded by this result. Methodology: Isolated Genomic DNA from the patient's blood specimen is evaluated for the c*97G>A ([id number]) variant of the F2 gene [RefSeq [id number];GRCh38/hg38] by multiplex polymerase chain reaction (PCR) followed by melting curve analysis. Limitations: This assay is designed to detect the c.*97G>A (16998R>A) variant in the F2 gene. Uncommon variants or single nucleotide polymorphisms may affect binding of probes and may rarely result in false negative, false positive or indeterminate results. This assay does not detect other disease-associated rare variants in F2 or other causes of thromboembolic disease. Disclaimer: This test was developed and its performance characteristics determined by [facility]'s [facility] [place] ([facility]). It has not been cleared or approved by the FDA. [facility] is regulated under CLIA as certified to perform high- complexity testing. This test is used for clinical purposes. It should not be regarded as investigational or for research. Testing and interpretation performed at [facility], [facility] [place] [address]. CLIA Number: [id number] References: 1) Inheritied Thrombophilias in . ACOG Practice Bulletin. No. 197. [place] [employer]. Obsete Gynecol 2018;132:e18-34. 2) Mignon SR, Tay FR, Figueroa PH, and Gisell CHIRINOS. A common genetic variation in the 3'-untranslated region of the prothrombin gene is associated with elevated plasma prothrombin levels and an increase in venous thrombosis. Blood 88:3698-703, 1996. 3) Eben I, Lelia V, Chintan C, Kathi K. Prothrombin 59060U>T: 16 new cases, association with the 70363P>G polymorphism, and literature review. J Thromb Haemost. 2009;9:1585-7. As reviewed by Lorene Cam MD, PhD Performed By: [employer] [facility]. [place] [address] Stockroom Coordinator: Derick Brar III, M.D. CLIA#: [id number] LABORATORYOrdered By: SYSTEM SYSTEM on 05-23-2022 Homocysteine [Moles/Vol] 4.7 umol/L Invalid Interpretation Code 3.7 - 13.9 umol/l AH ADM SS Albumin BCP dye [Mass/Vol] 2.3 G/dL Invalid Interpretation Code 3.2 - 4.8 G/dL AH ADM SS Albumin/Globulin [Mass ratio] 0.8 {ratio} Invalid Interpretation Code 0.9 - 1.6 ratio AH ADM SS ALP [Catalytic activity/Vol] 42 U/L Invalid Interpretation Code 38 - 126 U/L AH ADM SS ALT No additional P-5'-P [Catalytic activity/Vol] 15 U/L Invalid Interpretation Code 10 - 49 U/L AH ADM SS AST [Catalytic activity/Vol] 20 U/L Invalid Interpretation Code 8 - 34 U/L AH ADM SS Bilirubin [Mass/Vol] 0.40 mg/dL Invalid Interpretation Code 0.20 - 1.20 mg/dL AH ADM SS Globulin 2.9 G/dL Invalid Interpretation Code 1.5 - 3.8 G/dL AH ADM SS Protein [Mass/Vol] 5.2 G/dL Invalid Interpretation Code 5.7 - 8.2 G/dL ADM SS LABORATORYOrdered By: Ronny Zambrano on 05-23-2022 Cholesterol [Mass/Vol] 87 mg/dL Invalid Interpretation Code 50 - 199 mg/dL ADM SS Cholesterol in HDL [Mass/Vol] mg/dL Invalid Interpretation Code 40 - 59 mg/dL ADM SS Cholesterol in LDL [Mass/Vol] Unable to Calculate Invalid Interpretation Code 0 - 129 ADM SS Comment on above: Result Comment: Treva le to calculate this test result accurately. Results used to calculate this test are outside the reportable range. Unable to calculate this test result accurately. Results used to calculate this test are outside the reportable range. Triglyceride [Mass/Vol] 174 mg/dL Invalid Interpretation Code 3 - 149 mg/dL ADM SS LABORATORYOrdered By: CleanTie SYSTEM on 05-22-2022 Albumin BCP dye [Mass/Vol] 2.2 G/dL Invalid Interpretation Code 3.2 - 4.8 G/dL ADM SS Albumin/Globulin [Mass ratio] 0.8 {ratio} Invalid Interpretation Code 0.9 - 1.6 ratio ADM SS ALP [Catalytic activity/Vol] 38 U/L Invalid Interpretation Code 38 - 126 U/L ADM SS ALT No additional P-5'-P [Catalytic activity/Vol] 14 U/L Invalid Interpretation Code 10 - 49 U/L ADM SS AST [Catalytic activity/Vol] 20 U/L Invalid Interpretation Code 8 - 34 U/L ADM SS Bilirubin [Mass/Vol] 0.40 mg/dL Invalid Interpretation Code 0.20 - 1.20 mg/dL ADM SS Globulin 2.7 G/dL Invalid Interpretation Code 1.5 - 3.8 G/dL ADM SS Protein [Mass/Vol] 4.9 G/dL Invalid Interpretation Code 5.7 - 8.2 G/dL ADM SS Troponin I.cardiac DL <= 0.01 ng/mL [Mass/Vol] 37.62 ng/L Invalid Interpretation Code 0.00 - 34.00 ng/L ADM SS Troponin I.cardiac DL <= 0.01 ng/mL [Mass/Vol] 54.90 ng/L Invalid Interpretation Code 0.00 - 34.00 ng/L ADM SS Troponin I.cardiac DL <= 0.01 ng/mL [Mass/Vol] 57.44 ng/L Invalid Interpretation Code 0.00 - 34.00 ng/L ADM SS Albumin BCP dye [Mass/Vol] 2.6 G/dL Invalid Interpretation Code 3.2 - 4.8 G/dL ADM SS Albumin/Globulin [Mass ratio] 0.9 {ratio} Invalid Interpretation Code 0.9 - 1.6 ratio ADM SS ALP [Catalytic activity/Vol] 40 U/L Invalid Interpretation Code 38 - 126 U/L ADM SS ALT No additional P-5'-P [Catalytic activity/Vol] 20 U/L Invalid Interpretation Code 10 - 49 U/L ADM SS AST [Catalytic activity/Vol] 21 U/L Invalid Interpretation Code 8 - 34 U/L ADM SS Bilirubin [Mass/Vol] 0.50 mg/dL Invalid Interpretation Code 0.20 - 1.20 mg/dL ADM SS Cobalamin (Vitamin B12) [Mass/Vol] 436 pg/mL Invalid Interpretation Code 211 - 911 pg/mL ADM SS Globulin 2.9 G/dL Invalid Interpretation Code 1.5 - 3.8 G/dL ADM SS HbA1c (Bld) [Mass fraction] 5.8 % Invalid Interpretation Code 4.0 - 6.0 % Auto Chem SS TSH Qn 1.693 mIU/mL Invalid Interpretation Code 0.550 - 4.780 mIU/mL ADM SS LABORATORYOrdered By: Miguel Campos on 05-22-2022 Glucose [Mass/Vol] 91 mg/dL Invalid Interpretation Code 70 - 110 mg/dL [facility] Work Phone: LABORATORYOrdered By: Zonia Drake on 05-22-2022 Lactate [Moles/Vol] 1.8 mmol/L Invalid Interpretation Code 0.2 - 2.0 mmol/L Auto Chem SS Lactate [Moles/Vol] 2.0 mmol/L Invalid Interpretation Code 0.2 - 2.0 mmol/L Auto Chem SS LABORATORYOrdered By: Won Pederson on 05-22-2022 Cholesterol [Mass/Vol] 94 mg/dL Invalid Interpretation Code 50 - 199 mg/dL ADM SS Cholesterol in HDL [Mass/Vol] 28 mg/dL Invalid Interpretation Code 40 - 59 mg/dL ADM SS Cholesterol in LDL [Mass/Vol] 52 mg/dL Invalid Interpretation Code 0 - 129 mg/dL ADM SS Triglyceride [Mass/Vol] 70 mg/dL Invalid Interpretation Code 3 - 149 mg/dL ADM SS Barometric Pressure 711 mm[Hg] Invalid Interpretation Code Auto Chem SS Base excess Calc (Bld) [Moles/Vol] 2.5 mmol/L Invalid Interpretation Code Auto Chem SS CO2 (Bld) [Partial pressure] 38.6 mm[Hg] Invalid Interpretation Code 32.0 - 46.0 mm Hg AH Auto Chem SS CO2 [Moles/Vol] 27.7 mmol/L Invalid Interpretation Code 22.0 - 30.0 mmol/L AH Auto Chem SS HCO3 (Bld) [Moles/Vol] 26.5 mmol/L Invalid Interpretation Code 21.0 - 29.0 mmol/L Auto Chem SS Oxygen (Bld) [Partial pressure] 66.4 mm[Hg] Invalid Interpretation Code 74.0 - 108.0 mm Hg AH Auto Chem SS pH (Bld) 7.454 [pH] Invalid Interpretation Code 7.380 - 7.460 Auto Chem SS LABORATORYOrdered By: Raul Tamez on 05-22-2022 M. pneumoniae IgM IA Ql (S) Negative (05/22/22 6:41 AM) Invalid Interpretation Code Man Viro/Sero SS LABORATORYOrdered By: Rosi Lozano on 05-22-2022 Mycoplasma IgG Negative Invalid Interpretation Code Auto Viro/Sero SS No Panel Informationon 05-22 Microscopic examination of blood, culture Blood Culture: No Growth at 5 days. [facility] Work Phone: Basophil percentageon 2021 Chloride [Moles/Vol] 100 mmol/L 98-107 [facility] Work Phone: Glucose [Mass/Vol] 106 mg/dL 74-[address] [facility] Work Phone: Comment on above: Fasting Glucose resu lt from 100 to 125 mg/dL suggests IMPAIRED HOMEOSTASIS per A.D.A. criteria. Potassium [Moles/Vol] 3.6 mmol/L 3.5-5.1 [facility] Work Phone: Sodium [Moles/Vol] 139 mmol/L 136-[address] [facility] Work Phone: Laboratory - Chemistry and C hemistry - challengeon 12-14-2021 CO2 [Moles/Vol] 29.0 mmol/L 21.0-32.0 [facility] Work Phone: Urea nitrogen/Creatinine [Mass ratio] 18.6 mg/mg 10-20 [facility] Work Phone: No Panel Informationon 12-14 Estimated GFR (MDRD) Amer 83 mL/min >60 [facility] Work Phone: Comment on above: GFR Calc Estimated GFR (MDRD) Non-Af Amer 69 mL/min >60 [facility] Work Phone: Comment on above: Non- GFR Calc Thyroid Stimulating Hormone (TSH) 3.10 uIU/mL 0.358-3.74 [facility] Work Phone: Serum or plasma calcium zina urement (mass/volume)on 12-14-2021 Calcium [Mass/Vol] 9.4 mg/dL 8.5-10.[address] [facility] Work Phone: Serum or plasma creatinine m easurement (mass/volume)on 12-14-2021 Creatinine [Mass/Vol] 0.92 mg/dL 0.55-1.02 [facility] Work Phone: Comment on above: The validity of the calculated GFR & GFRAA in patients over 70 years has not been determined. Clinical correlation is essential. Serum or plasma urea nitroge n measurement (mass/volume)on 12-14-2021 Urea nitrogen [Mass/Vol] 17 mg/dL 7-18 [facility] Work Phone: Thin prep Papanicolaou smear with manual screeningon 12-14-2021 Thin prep Papanicolaou smear with manual screening 10 5-15 [facility] Work Phone: Culture, urine Bacteria identified Cx Nom (U) Mixed Gram Pos & Gram Neg Org [facility] Work Phone: Vital Signs Date Time Vital Sign Value Performing Clinician Faci lity 11-29-2024 09:22-0400 Body height 160.[address] Edison Rivero DO Work Phone: [facility] 11-29-2024 09:22-0400 Body mass index (BMI) [Ratio] 37.2 kg/m2 Dr. Edison Rivero DO Work Phone: [facility] 11-29-2024 09:22-0400 Body temperature 97.8 [degF] Dr. Edison Rivero DO Work Phone: [facility] 11-29-2024 09:22-0400 Body weight 95.[address] Edison Rivero DO Work Phone: [facility] 11-29-2024 09:22-0400 Diastolic blood pressure 68 mm[Hg] Dr. Edison Rivero DO Work Phone: [facility] 11-29-2024 09:22-0400 Heart rate 92 /min Dr. Eidson Rivero DO Work Phone: [facility] 11-29-2024 09:22-0400 Respiratory rate 18 /min Dr. Edison Rivero DO Work Phone: [facility] 11-29-2024 09:22-0400 SaO2% (BldA) [Mass fraction] 96 % Dr. Edison Rivero DO Work Phone: [facility] 11-29-2024 09:22-0400 Systolic blood pressure 105 mm[Hg] Dr. Edison Rivero DO Work Phone: [facility] 08-28-2024 16:28-0500 Body mass index (BMI) [Ratio] 38.3 kg/m2 Dr. Edison Rivero DO Work Phone: [facility] 08-28-2024 16:28-0500 Body temperature 98 [degF] Dr. Edison Rivero DO Work Phone: [facility] 08-28-2024 16:28-0500 Body weight 98.[address] Edison Rivero DO Work Phone: [facility] 08-28-2024 16:28-0500 Diastolic blood pressure 82 mm[Hg] Dr. Edison Rivero DO Work Phone: [facility] 08-28-2024 16:28-0500 Heart rate 80 /min Dr. Edison Rivero DO Work Phone: [facility] 08-28-2024 16:28-0500 Respiratory rate 18 /min Dr. Edison Rivero DO Work Phone: [facility] 08-28-2024 16:28-0500 Systolic blood pressure 124 mm[Hg] Dr. Edison Rivero DO Work Phone: [facility] 08-16-2023 15:12-0500 Body height 160.[address] Edison Rivero Work Phone: [facility] 08-16-2023 15:12-0500 Body mass index (BMI) [Ratio] 37.2 kg/m2 Dr. Edison Rivero Work Phone: [facility] 08-16-2023 15:12-0500 Body temperature 97.2 [degF] Dr. Edison Rivero Work Phone: [facility] 08-16-2023 15:12-0500 Body weight 95.[address] Edison Rivero Work Phone: [facility] 08-16-2023 15:12-0500 Diastolic blood pressure 74 mm[Hg] Dr. Edison Rivero Work Phone: [facility] 08-16-2023 15:12-0500 Respiratory rate 18 /min Dr. Edison Rivero Work Phone: [facility] 08-16-2023 15:12-0500 Systolic blood pressure 116 mm[Hg] Dr. Edison Rivero Work Phone: [facility] 07-05-2023 14:42-0500 Body mass index (BMI) [Ratio] 36.1 kg/m2 Dr. Edison Rivero Work Phone: [facility] 07-05-2023 14:42-0500 Body temperature 99 [degF] Dr. Edison Rivero Work Phone: [facility] 07-05-2023 14:42-0500 Body weight 92.[address] Edison Rivero Work Phone: [facility] 07-05-2023 14:42-0500 Diastolic blood pressure 74 mm[Hg] Dr. Edison Rivero Work Phone: [facility] 07-05-2023 14:42-0500 Heart rate 64 /min Dr. Edison Rivero Work Phone: [facility] 07-05-2023 14:42-0500 Respiratory rate 18 /min Dr. Edison Rivero Work Phone: [facility] 07-05-2023 14:42-0500 SaO2% (BldA) [Mass fraction] 97 % Dr. Edison Rivero Work Phone: [facility] 07-05-2023 14:42-0500 Systolic blood pressure 110 mm[Hg] Dr. Edison Rivero Work Phone: [facility] 05-31-2023 15:18-0400 Body mass index (BMI) [Ratio] 36.1 kg/m2 Dr. Edison Rivero Work Phone: [facility] 05-31-2023 15:18-0400 Body weight 92.[address] Edison Rivero Work Phone: [facility] 05-31-2023 15:18-0400 Diastolic blood pressure 58 mm[Hg] Dr. Edison Rivero Work Phone: [facility] 05-31-2023 15:18-0400 Systolic blood pressure 106 mm[Hg] Dr. Edison Rivero Work Phone: [facility] 06-09-2022 08:09-0500 Body height 160.[address] Edison Rivero Work Phone: [facility] Work Phone: 06-09-2022 08:09-0500 Body mass index (BMI) [Ratio] 33.6 kg/m2 Dr. Edison Rivero Work Phone: [facility] Work Phone: 06-09-2022 08:09-0500 Body temperature 97 [degF] Dr. Edison Rivero Work Phone: [facility] Work Phone: 06-09-2022 08:09-0500 Body weight 86.[address] Edison Rivero Work Phone: [facility] Work Phone: 06-09-2022 08:09-0500 Diastolic blood pressure 64 mm[Hg] Dr. Edison Rivero Work Phone: [facility] Work Phone: 06-09-2022 08:09-0500 Heart rate 105 /min Dr. Edison Rivero Work Phone: [facility] Work Phone: 06-09-2022 08:09-0500 Respiratory rate 16 /min Dr. Edison Rivero Work Phone: [facility] Work Phone: 06-09-2022 08:09-0500 SaO2% (BldA) [Mass fraction] 99 % Dr. Edison Rivero Work Phone: [facility] Work Phone: 06-09-2022 08:09-0500 Systolic blood pressure 100 mm[Hg] Dr. Edison Rivero Work Phone: [facility] Work Phone: 05-31-2022 09:40-0400 Body mass index (BMI) [Ratio] 33.8 kg/m2 Dr. Edison Rivero Work Phone: [facility] Work Phone: 05-31-2022 09:40-0400 Body temperature 98.5 [degF] Dr. Edison Rivero Work Phone: [facility] Work Phone: 05-31-2022 09:40-0400 Body weight 86.[address] Edison Rivero Work Phone: [facility] Work Phone: 05-31-2022 09:40-0400 Diastolic blood pressure 70 mm[Hg] Dr. Edison Rivero Work Phone: [facility] Work Phone: 05-31-2022 09:40-0400 Heart rate 99 /min Dr. Edison Rivero Work Phone: [facility] Work Phone: 05-31-2022 09:40-0400 Respiratory rate 14 /min Dr. Edison Rivero Work Phone: [facility] Work Phone: 05-31-2022 09:40-0400 SaO2% (BldA) [Mass fraction] 93 % Dr. Edison Rivero Work Phone: [facility] Work Phone: 05-31-2022 09:40-0400 Systolic blood pressure 106 mm[Hg] Dr. Edison Rivero Work Phone: [facility] Work Phone: 05-29-2022 11:35-0400 Body temperature 98.24 [degF] RON DE SANTIAGO MD [facility] 05-29-2022 11:35-0400 Diastolic Blood Pressure NBP 75 1 RON DE SANTIAGO MD [facility] 05-29-2022 11:35-0400 Heart rate 93 /min RON DE SANTIAGO MD [facility] 05-29-2022 11:35-0400 Mean blood pressure 91 mm[Hg] RON DE SANTIAGO MD [facility] 05-29-2022 11:35-0400 Reason For Taking VItal Signs RON DE SANTIAGO MD [facility] 05-29-2022 11:35-0400 Respiratory rate 20 /min RON DE SANTIAGO MD [address] [place] [address] 05-29-2022 11:35-0400 Systolic Blood Pressure NBP 122 1 RON DE SANTIAGO MD [address] [place] [address] 05-29-2022 07:55-0400 Body temperature 98.42 [degF] RON DE SANTIAGO MD [address] [place] [address] 05-29-2022 07:55-0400 Diastolic Blood Pressure NBP 72 1 RON DE SANTIAGO MD [address] [place] [address] 05-29-2022 07:55-0400 Heart rate 95 /min RON DE SANTIAGO MD [address] [place] [address] 05-29-2022 07:55-0400 Mean blood pressure 89 mm[Hg] RON DE SANTIAGO MD [address] [place] [address] 05-29-2022 07:55-0400 Reason For Taking VItal Signs RON DE SANTIAGO MD [address] [place] [address] 05-29-2022 07:55-0400 Respiratory rate 18 /min RON DE SANTIAGO MD [address] [place] [address] 05-29-2022 07:55-0400 Systolic Blood Pressure NBP 135 1 RON DE SANTIAGO MD [address] [place] [address] 05-29-2022 03:55-0400 Diastolic Blood Pressure NBP 72 1 RON DE SANTIAGO MD [address] [place] [address] 05-29-2022 03:55-0400 Heart rate 90 /min RON DE SANTIAGO MD [address] [place] [address] 05-29-2022 03:55-0400 Mean blood pressure 89 mm[Hg] RON DE SANTIAGO MD [address] [place] [address] 05-29-2022 03:55-0400 Reason For Taking VItal Signs RON DE SANTIAGO MD [address] [place] [address] 05-29-2022 03:55-0400 Respiratory rate 20 /min RON DE SANTIAGO MD [address] [place] [address] 05-29-2022 03:55-0400 Systolic Blood Pressure NBP 124 1 RON DE SANTIAGO MD [address] 05-28-2022 23:21-0400 Body temperature 98.06 [degF] RON DE SANTIAGO MD [address] 05-27-2022 07:50-0400 Heart rate 82 /min RON DE SANTIAGO MD [address] [place] [address] 05-26-2022 13:34-0400 Diastolic blood pressure 62 mm[Hg] RON DE SANTIAGO MD [address] [place] [address] 05-26-2022 13:34-0400 Mean blood pressure 70 mm[Hg] RON DE SANTIAGO MD [address] [place] [address] 05-26-2022 13:34-0400 Systolic blood pressure 80 mm[Hg] RON DE SANTIAGO MD [address] [place] [address] 05-26-2022 13:10-0400 Body temperature 97.32 [degF] RON DE SANTIAGO MD [address] 05-26-2022 13:05-0400 Body temperature 97.32 [degF] RON DE SANTIAGO MD [address] [place] [address] 05-26-2022 13:00-0400 Body temperature 97.3 [degF] RON DE SANTIAGO MD [address] [place] [address] 05-26-2022 10:50-0400 Diastolic blood pressure 72 mm[Hg] RON DE SANTIAGO MD [address] [place] [address] 05-26-2022 10:50-0400 Systolic blood pressure 132 mm[Hg] RON DE SANTIAGO MD [facility] 05-26-2022 06:21-0400 Diastolic blood pressure 71 mm[Hg] RON DE SANTIAGO MD [address] [place] [address] 05-26-2022 06:21-0400 Mean blood pressure 100 mm[Hg] RON DE SANTIAGO MD [address] [place] [address] 05-26-2022 06:21-0400 Systolic blood pressure 157 mm[Hg] RON DE SANTIAGO MD [address] 05-26-2022 03:09-0400 Diastolic blood pressure 66 mm[Hg] RON DE SANTIAGO MD [address] [place] [address] 05-26-2022 03:09-0400 Heart rate 92 /min RON DE SANTIAGO MD [address] 05-26-2022 03:09-0400 Mean blood pressure 88 mm[Hg] RON DE SANTIAGO MD [address] 05-26-2022 03:09-0400 Systolic blood pressure 133 mm[Hg] RON DE SANTIAGO MD [address] [place] [address] 05-25-2022 23:32-0400 Heart rate 95 /min RON DE SANTIAGO MD [address] [place] [address] 05-25-2022 23:32-0400 Mean blood pressure 86 mm[Hg] RON DE SANTIAGO MD [address] [place] [address] 05-25-2022 19:08-0400 Heart rate 87 /min RON DE SANTIAGO MD [address] [place] [address] 05-25-2022 10:54-0400 Heart rate 104 /min RON DE SANTIAGO MD [address] [place] [address] 05-25-2022 07:22-0400 Heart rate 91 /min RON DE SANTIAGO MD [address] [place] [address] 05-22-2022 06:05-0400 SaO2% (BldA) [Mass fraction] 93.8 % RON DE SANTIAGO MD [facility] 05-22-2022 04:33-0400 Body height 157.5 cm RON DE SANTIAGO MD [facility] 05-22-2022 04:33-0400 Body weight 77.3 kg RON DE SANTIAGO MD [facility] 05-22-2022 04:33-0400 Body weight 31.16 kg/m2 RON DE SANTIAGO MD [facility] 05-18-2022 08:18-0400 Body height 157.5 cm STEFANIE REICHFIELD DO [facility] 05-18-2022 08:18-0400 Body temperature 98.24 [degF] STEFANIE REICHFIELD DO [facility] 05-18-2022 08:18-0400 Body weight 82 kg STEFANIE REICHFIELD DO [facility] 05-18-2022 08:18-0400 Diastolic blood pressure 97 mm[Hg] STEFANIE REICHFIELD DO [facility] 05-18-2022 08:18-0400 Heart rate 116 /min STEAFNIE REICHFIELD DO [facility] 05-18-2022 08:18-0400 Respiratory rate 20 /min STEFANIE REICHFIELD DO [facility] 05-18-2022 08:18-0400 Systolic blood pressure 138 mm[Hg] STEFANIE REICHFIELD DO [facility] 12-14-2021 13:09-0400 Body height 160.[address] Edison Rivero Work Phone: [facility] Work Phone: 12-14-2021 13:09-0400 Body mass index (BMI) [Ratio] 36.3 kg/m2 Dr. Edison Rivero Work Phone: [facility] Work Phone: 12-14-2021 13:09-0400 Body temperature 97.1 [degF] Dr. Edison Rivero Work Phone: [facility] Work Phone: 12-14-2021 13:09-0400 Body weight 92.[address] Edison Rivero Work Phone: [facility] Work Phone: 12-14-2021 13:09-0400 Diastolic blood pressure 70 mm[Hg] Dr. Edison Rivero Work Phone: [facility] Work Phone: 12-14-2021 13:09-0400 Heart rate 112 /min Dr. Edison Rivero Work Phone: [facility] Work Phone: 12-14-2021 13:09-0400 Respiratory rate 18 /min Dr. Edison Rivero Work Phone: [facility] Work Phone: 12-14-2021 13:09-0400 SaO2% (BldA) [Mass fraction] 99 % Dr. Edison Rivero Work Phone: [facility] Work Phone: 12-14-2021 13:09-0400 Systolic blood pressure 112 mm[Hg] Dr. Edison Rivero Work Phone: [facility] Work Phone: 10-07-2021 09:59-0500 Body temperature 97.2 [degF] Dr. Edison Rivero Work Phone: [facility] Work Phone: 10-07-2021 09:59-0500 Diastolic blood pressure 86 mm[Hg] Dr. Edison Rivero Work Phone: [facility] Work Phone: 10-07-2021 09:59-0500 Heart rate 92 /min Dr. Edison Rivero Work Phone: [facility] Work Phone: 10-07-2021 09:59-0500 Respiratory rate 16 /min Dr. Edison Rivero Work Phone: [facility] Work Phone: 10-07-2021 09:59-0500 SaO2% (BldA) [Mass fraction] 99 % Dr. Edison Rivero Work Phone: [facility] Work Phone: 10-07-2021 09:59-0500 Systolic blood pressure 101 mm[Hg] Dr. Edison Rivero Work Phone: [facility] Work Phone: 10-07-2021 07:56-0500 Body mass index (BMI) [Ratio] 36.3 kg/m2 Dr. Edison Rivero Work Phone: [facility] Work Phone: 10-07-2021 07:56-0500 Body weight [address] Edison Rivero Work Phone: [facility] Work Phone: 09-30-2021 12:54-0500 Body mass index (BMI) [Ratio] 36.6 kg/m2 Dr. Edison Rivero Work Phone: [facility] Work Phone: 09-30-2021 12:54-0500 Body temperature 97.7 [degF] Dr. Edison Rivero Work Phone: [facility] Work Phone: 09-30-2021 12:54-0500 Body weight 93.[address] Edison Rivero Work Phone: [facility] Work Phone: 09-30-2021 12:54-0500 Diastolic blood pressure 77 mm[Hg] Dr. Edison Rivero Work Phone: [facility] Work Phone: 09-30-2021 12:54-0500 Heart rate 67 /min Dr. Edison Rivero Work Phone: [facility] Work Phone: 09-30-2021 12:54-0500 Respiratory rate 18 /min Dr. Edison Rivero Work Phone: [facility] Work Phone: 09-30-2021 12:54-0500 SaO2% (BldA) [Mass fraction] 97 % Dr. Edison Rivero Work Phone: [facility] Work Phone: 09-30-2021 12:54-0500 Systolic blood pressure 143 mm[Hg] Dr. Edison Rivero Work Phone: [facility] Work Phone: 09-15-2021 13:18-0500 Body mass index (BMI) [Ratio] 37.8 kg/m2 Dr. Edison Rivero Work Phone: [facility] Work Phone: 09-15-2021 13:18-0500 Body temperature 97.1 [degF] Dr. Edison Rivero Work Phone: [facility] Work Phone: 09-15-2021 13:18-0500 Body weight 93.[address] Edison Rivero Work Phone: [facility] Work Phone: 09-15-2021 13:18-0500 Diastolic blood pressure 72 mm[Hg] Dr. Edison Rivero Work Phone: [facility] Work Phone: 09-15-2021 13:18-0500 Heart rate 78 /min Dr. Edison Rivero Work Phone: [facility] Work Phone: 09-15-2021 13:18-0500 Respiratory rate 18 /min Dr. Edison Rivero Work Phone: [facility] Work Phone: 09-15-2021 13:18-0500 SaO2% (BldA) [Mass fraction] 97 % Dr. Edison Rivero Work Phone: [facility] Work Phone: 09-15-2021 13:18-0500 Systolic blood pressure 130 mm[Hg] Dr. Edison Rivero Work Phone: [facility] Work Phone: Encounters Encounter Date Encounter Type Care Provider Facility Start: 11-29-2024 End: 11-29-[address] Edison Rivero DO Work Phone: [facility] Work Phone: Start: 11-29-2024 End: 11-29-[address] Drake Mejia MD -Laboratory, Specimen Work Phone: Start: 11-29-2024 End: 11-29-[address] Drake Mejia MD -[facility] Work Phone: Start: 11-29-2024 End: 11-29-2024 ambulatory Edison Rivero Facility:[facility] [place] Start: 11-29-2024 End: 11-29-2024 ambulatory Edison Rivero Facility:[facility] Start: 09-02-2024 End: 09-02-[address] Edison Luciano DO -Laboratory, [place] Start: 09-02-2024 End: 09-02-2024 ambulatory Edison Rivero Facility:[facility] Start: 08-28-2024 End: 08-28-[address] Edison Luciano DO -[facility] Work Phone: Start: 08-28-2024 End: 08-28-2024 ambulatory Edison Rivero Facility:[facility] [place] Start: 10-09-2023 End: 10-10-2023 ambulatory EDISON RIVERO DO Facility:B Start: 10-09-2023 End: 10-09-2023 Patient encounter procedure LUIS VERA MD [facility] Start: 08-29-2023 End: 08-29-[address] Edison Rivero Work Phone: [facility] Work Phone: Start: 08-29-2023 End: 08-29-[address] Edison Rivero Work Phone: [facility] Work Phone: Start: 08-16-2023 End: 08-16-[address] Edison Rivero Work Phone: [facility] Work Phone: Start: 07-05-2023 End: 07-05-[address] Edison Rivero Work Phone: [facility] Work Phone: Start: 05-31-2023 End: 05-31-[address] Edison Rivero Work Phone: [facility] Work Phone: Start: 03-17-2023 End: 03-18-2023 ambulatory EDISON RIVERO DO Facility:[facility] Start: 03-17-2023 End: 03-17-2023 Patient encounter procedure LUIS VERA MD [facility] Start: 06-14-2022 End: 06-14-2022 Patient encounter procedure DEVIN FERRER MD [facility] Start: 06-09-2022 End: 06-09-[address] Edison Rivero Work Phone: [facility] Work Phone: Start: 06-09-2022 End: 06-09-[address] Edison Rivero Work Phone: [facility] Start: 05-31-2022 End: 05-31-[address] Edison Rivero Work Phone: [facility] Start: 05-22-2022 End: 05-29-2022 Evaluation and management of inpatient RON DE SANTIAGO MD [facility] Start: 05-18-2022 End: 05-18-2022 Emergency department patient visit STEFANIE SANCHE[facility] Start: 12-14-2021 End: 12-14-[address] Edison Rivero Work Phone: [facility] Start: 10-07-2021 Non-patient / Non-visit Dr. Edison Rivero Work Phone: [facility] Start: 10-07-2021 End: 10-07-2021 Admission to same day surgery center Dr. Edison Rivero Work Phone: [facility] Start: 09-30-2021 End: 09-30-[address] Edison Rivero Work Phone: [facility] Start: 09-20-2021 End: 09-20-[address] Edison Rivero Work Phone: [facility] Start: 09-15-2021 End: 09-15-[address] Edison Rivero Work Phone: [facility] Procedures Date Procedure Procedure Detail Performing Clinician Start: 11-29-2024 Methicillin resistan t Staphylococcus aureus screening test Dr. Edison Rivero DO Work Phone: Start: 09-02-2024 Measurement of renal function Dr. Edison Rivero DO Work Phone: Comment on above: GFR Calc Start: 10-06-2021 End: 10-06-[address] Edison Rivero Work Phone: Start: 09-20-2021 Computed tomography of abdomen and pelvis with contrast Dr. Edison Rivero Work Phone: Abdominal hysterectomy STEFANIE SANCHEZ DO Comment on above: partial H/O: hysterectomy History of hysterectomy Dr. Edison Rivero Work Phone: Comment on above: [address] Edison marin Work Phone: Plan of Treatment Date Care Activity Detail Author Start: 08-28-2024 Patient referral [facility] Work Phone: Start: 10-07-2021 Egd transoral biopsy single/multiple EGD BIOPSY SINGLE/MULTIPLE [facility] Work Phone: CT Abdomen and Pelvi s W contrast IV [facility] Patient referral [facility] Work Phone: Thyroid stimulating hormone measurement [facility] Work Phone: Payers Date Payer Category Payer Unknown [id number] [id number] 2024 Self-pay [id number] 2023 Unknown [id number] 1970 Unknown [id number] [id number] 1970 Unknown [id number] [id number] Unknown [id number] Unknown [id number] [id number] [id number] Unknown [id number] [id number] [id number] Unknown [id number] [id number] Unknown [id number] [id number] [id number] Social History Date Type Detail Facility Start: 12-14-2021 End: 08-16-2023 Tobacco smoking status NVIS Unknown if ever smoked [facility] Start: 1970 Sex Assigned At Female A [facility] Start: 01-02-2019 Tobacco smoking status Heavy t obacco smoker (finding) [facility] Start: 11-29-2024 [facility] Functional Status Date Assessment Result Facility 05-29-2022 Functional Status Identified as high risk [facility] 05-29-2022 Functional Status [facility] 05-29-2022 Functional Status Hospital bed, Weigh bed [facility] 05-29-2022 Functional Status heel(s)s eleva modesto, padded oxygen tubing [facility] 05-29-2022 Functional Status [facility] 05-28-2022 Functional Status [facility] 05-28-2022 Functional Status 75 [facility] 05-28-2022 Functional Status Supervised 11 [facility] 05-28-2022 Functional Status Supervised 12 [facility] 05-27-2022 Functional Status [facility] 05-27-2022 Functional Status [facility] 05-27-2022 Functional Status Ambulation in [facility] 05-27-2022 Functional Status [facility] 05-26-2022 Functional Status [facility] 05-26-2022 Functional Status [facility] 05-26-2022 Functional Status [facility] 05-26-2022 Functional Status [facility] 05-26-2022 Functional Status COVID 19 Surge in Effec t Yes [facility] 05-26-2022 [facility] 05-25-[facility]22 [facility] 05-25[facility]22 [facility]-25[facility]22 [facility] Functional Status [facility] 05-24-2022 Functional Status [facility] 05-24-2022 [facility] 05-23-2022 Functional Status Multilevel home [facility] 05-23-2022 Functional Status Supervised 21 [facility] 05-22-2022 Functional Status [facility] 05-22-2022 Functional Status Sensory Deficits None A [facility] 05-18-2022 Functional Status Up ad andrew [facility] 05-18-2022 Functional Status Standard Safet y ID band on, Allergy Band on, Call device within reach, Bed in low position, Wheels locked [facility] Mental Status Date Assessment Result Facility 05-29-2022 Mental Status Oriented x 4 [facility] 05-29-2022 Mental Status [facility] 05-28-2022 Mental Status [facility] 05-28-2022 Mental Status [facility] 05-18-2022 Mental Status Orientation Oriented x 4 [facility] 05-18-2022 Mental Status [facility] 10-07-2021 Cognitive function Voice/Name [facility] Work Phone: Clinical Notes 05-18-2022 to 08-28-2024 Note Date & Type Note Facility 08-28-2024 Evaluation note Diagnosis Onset Date Resolution CVA (cerebral vascular accident) acute August 28 4:25pm Hypothyroid acute August 28, 2024 4:25pm Ventral hernia acute August 282024 4:25pm Tobacco use chronic August 28, 2024 4:25pm Ventral hernia acute November 29 9:06am Hernia noneactive November 29, 2024 9:06am [facility] Work Phone: 1(650) 295-651003-11-2024 Note ORIGINAL EXAMINATION: CTA OF THE NECK 10/09/2023 2:26 pm TECHNIQUE: CTA of the neck was performed with the administration of intravenous contrast. Multiplanar reformatted images are provided for review. MIP images are provided for review. Stenosis of the internal carotid arteries measured using NASCET criteria. Automated exposure control, iterative reconstruction, and/or weight based adjustment of the mA/kV was utilized to reduce the radiation dose to as low as reasonably achievable. COMPARISON: CTA neck 05/21/2022, CT chest 05/27/2022 HISTORY: ORDERING SYSTEM PROVIDED HISTORY: Reason for Exam: CAROTID STENOSIS FINDINGS: AORTIC ARCH/ARCH VESSELS: There is a brachiocephalic artery stent which appears patent. Mild atherosclerotic change of the aortic arch. 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 The right subclavian artery is patent. No dissection. CAROTID ARTERIES: Moderate irregular noncalcified atherosclerotic plaque of the left carotid bulb and proximal left internal carotid artery, similar to the prior, resulting in about 50-60 % stenosis per NASCET criteria. Mild predominantly noncalcified atherosclerotic plaque of the proximal right internal carotid artery results in less than 50% stenosis per NASCET criteria. No dissection. VERTEBRAL ARTERIES: Mild stenosis of the left vertebral artery origin secondary to mixed calcified and noncalcified atherosclerotic plaque. No dissection or hemodynamically significant stenosis. SOFT TISSUES: Nodular biapical scarring, similar to the prior exam. Calcified granuloma at the left lung apex. No cervical or superior mediastinal lymphadenopathy. The larynx and pharynx are unremarkable. No acute abnormality of the salivary and thyroid glands. BONES: No acute osseous abnormality. Mild degenerative change at C5-C6. No severe bony spinal canal or bony foraminal narrowing. IMPRESSION: Stable moderate 50-60% stenosis of the proximal left internal carotid artery from noncalcified atherosclerotic plaque. Stable mild less than 50% stenosis of the proximal right internal carotid artery from predominantly noncalcified atherosclerotic plaque. Patent right brachiocephalic artery stent. 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 I have personally reviewed the images of this examination and agree with the resident's findings and interpretation. Interpreted by: Tomas Main MD Preliminary Report By: Talia Esquivel Electronically signed By Tomas Main MD Dictated Date: 10/09/2023 2:36:18 PM Prelim Date: 10/09/2023 3:55:07 PM Sign Date: 10/09/2023 3:55:07 PM Ordering Provider: [facility]12-27-2022 Evaluation + Plan note Future Scheduled Tests Laboratory* Phosphatidylserine Abs, IgG, IgA, IgM 07/26/22 * Cardiolipin IgG Antibodies 07/26/22 * Cardiolipin IgM Antibodies 07/26/22 * Cardiolipin IgA Antibodies 07/26/22 * Lactate Dehydrogenase 07/26/22 * Beta 2 Microglobulin 07/26/22 * Complete Blood Count 07/26/22 * Circulating Anticoagulants - Panel 07/26/22 * Complete Metabolic Panel 07/26/22 Radiology* MA Mammo Screening Bilateral w/ [place] 07/06/22 [facility] 11-15-2022 Note ORIGINAL EXAMINATION: CT OF THE HEAD WITHOUT CONTRAST 06/14/2022 3:25 pm TECHNIQUE: CT of the head was performed without the administration of intravenous contrast. Automated exposure control, iterative reconstruction, and/or weight based adjustment of the mA/kV was utilized to reduce the radiation dose to as low as reasonably achievable. COMPARISON: MR brain 05/22/2022; CTA head 05/21/2022; CT head 05/21/2022 HISTORY: ORDERING SYSTEM PROVIDED HISTORY: Reason for Exam: Recent stroke. New posterior headaches; currently on blood thinner FINDINGS: Motion artifacts obscure some details. BRAIN/VENTRICLES: Expected evolution of the parietal, temporal, and lateral occipital infarction. No new intracranial hemorrhage. There is mild regional sulcal effacement. No midline shift. No abnormal extra-axial fluid collection. The remaining diop-white differentiation is maintained. There is no evidence of hydrocephalus. Bilateral carotid siphon calcifications. ORBITS: The visualized portion of the orbits are normal. SINUSES: The visualized paranasal sinuses and mastoid air cells are clear. 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 SOFT TISSUES/SKULL: Mild degenerative changes of the left TMJ. No acute abnormality of the visualized skull or soft tissues. IMPRESSION: No acute intracranial abnormality. No new intracranial hemorrhage. Expected evolution of the ischemic infarction of the right parietal, temporal and occipital lobes (inferior division MCA territory). I have personally reviewed the images of this examination and agree with the resident's findings and interpretation. Interpreted by: Luke Shetty Preliminary Report By: Andrew Moran Electronically signed By Luke Shetty Dictated Date: 06/14/2022 3:39:10 PM Prelim Date: 06/14/2022 4:16:05 PM Sign Date: 06/14/2022 4:16:05 PM Ordering Provider: [facility]11-15-2022 Note ORIGINAL EXAMINATION: CT OF THE HEAD WITHOUT CONTRAST 06/14/2022 3:25 pm TECHNIQUE: CT of the head was performed without the administration of intravenous contrast. Automated exposure control, iterative reconstruction, and/or weight based adjustment of the mA/kV was utilized to reduce the radiation dose to as low as reasonably achievable. COMPARISON: MR brain 05/22/2022; CTA head 05/21/2022; CT head 05/21/2022 HISTORY: ORDERING SYSTEM PROVIDED HISTORY: Reason for Exam: Recent stroke. New posterior headaches; currently on blood thinner FINDINGS: Motion artifacts obscure some details. BRAIN/VENTRICLES: Expected evolution of the parietal, temporal, and lateral occipital infarction. No new intracranial hemorrhage. There is mild regional sulcal effacement. No midline shift. No abnormal extra-axial fluid collection. The remaining diop-white differentiation is maintained. There is no evidence of hydrocephalus. Bilateral carotid siphon calcifications. ORBITS: The visualized portion of the orbits are normal. SINUSES: The visualized paranasal sinuses and mastoid air cells are clear. 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 SOFT TISSUES/SKULL: Mild degenerative changes of the left TMJ. No acute abnormality of the visualized skull or soft tissues. IMPRESSION: No acute intracranial abnormality. No new intracranial hemorrhage. Expected evolution of the ischemic infarction of the right parietal, temporal and occipital lobes (inferior division MCA territory). I have personally reviewed the images of this examination and agree with the resident's findings and interpretation. Interpreted by: Luke Shetty Preliminary Report By: Andrew Moran Electronically signed By Luke Shetty Dictated Date: 06/14/2022 3:39:10 PM Prelim Date: 06/14/2022 4:16:05 PM Sign Date: 06/14/2022 4:16:05 PM Ordering Provider: [facility] 10-30-2022 Hospital Discharge instructions Patient Education 05/29/2022 15:27:00 8- Carotid Stenosis and Carotid Endarterectomy (08/2011)(CUSTOM) Carotid Stenosis and Carotid Endarterectomy Care After Surgery Refer to this sheet in the next few weeks. These discharge instructions provide you with general information on caring for yourself after you leave the hospital. Your caregiver may also give you specific instructions. Your treatment has been planned according to the most current medical practices available, but unavoidable complications sometimes occur. If you have any problems or questions afterdischarge, please call your caregiver. HOME CARE INSTRUCTIONS It is normal to be sore for a couple weeks after surgery. See your caregiver if this seems to be getting worse rather than better. Take showers, not baths, for a few days after surgery or until instructed otherwise by your caregiver. Do not take baths or swim until directed by your surgeon. Only take bgeu-fia-nukcobr or prescription medicines for pain, discomfort, or fever as directed by your caregiver. A blood thinner (anticoagulant) may be prescribed after surgery. This medicine should be taken exactly as directed. Change bandages (dressings) as directed by your caregiver. Resume your normal activities as directed by your caregiver. Avoid lifting until you are instructed otherwise. Make an appointment to see your caregiver for stitches (suture) or staple removal when instructed. Stop smoking if you smoke. This is a grave risk factor. Stop taking the pill (oral contraceptives) unless your caregiver recommends otherwise. Maintain good blood pressure control. Exercise regularly or as instructed. Lower blood lipids (cholesterol and triglycerides). Eat a heart-healthy diet. Manage heart problems if they are contributing to your risk. SEEK MEDICAL CARE IF: There is increased bleeding from the wound. You notice redness, swelling, or increasing pain in the wound. You notice swelling in your neck or have difficulty breathing or talking. You notice a bad smell or pus coming from the wound or dressing. SEEK IMMEDIATE MEDICAL CARE IF: Your initial symptoms are getting worse rather than better. You develop any abnormal bruising or bleeding. You develop a rash. You have difficulty breathing. You develop any reaction or side effects to medicine given. You develop chest pain, shortness of breath, or pain or swelling in your legs. You have a return of symptoms or problems that caused you to have this surgery. You develop a temporary loss of vision. You develop temporary numbness on one side. You develop a temporary inability to speak (aphasia). You develop temporary areas of weakness. You have problems or concerns that have not been answered. MAKE SURE YOU: Understand these instructions. Will watch your condition. Will get help right away if you are not doing well or get worse. Document Released: 02/03/2006 Document Re-Released: 10/11/2010 [facility] Patient Information 2011 [employer]. 05/29/2022 15:26:50 Hospital Discharge After a Stroke Hospital Discharge After a Stroke Being discharged from the hospital after a stroke can feel overwhelming. Many things may be different, and it is normal to feel scared or anxious. Some stroke survivors may be able to return to theirhomes, and others may need more specialized care on a temporary or permanent basis. Your stroke care team will work with you to develop a discharge plan that is best for you. Ask questions if you do not understand something. Invite a friend or family member to participate in discharge planning. Understanding and following your discharge plan can help to prevent another stroke or other problems. Understanding your medicines After a stroke, your health care provider may prescribe one or more types of medicine. It is important to take medicines exactly as told by your health care provider. Serious harm, such as another stroke, can happen if you are unable to take your medicine exactly as prescribed. Make sure you understand: What medicine to take. Why you are taking the medicine. How and when to take it. If it can be taken with your other medicines and herbal supplements. Possible side effects. When to call your health care provider if you have any side effects. How you will get and pay for your medicines. Medical assistance programs may be able to help you pay for prescription medicines if you cannot afford them. If you are taking an anticoagulant, be sure to take it exactly as told by your health care provider. This type of medicine can increase the risk of bleeding because it works to prevent blood from clotting. You may need to take certain precautions to prevent bleeding. You should contact your health care provider if you have: Bleeding or bruising. A fall or other injury to your head. Blood in your urine or stool (feces). Planning for home safety Take steps to prevent falls, such as installing grab bars or using a shower chair. Ask a friend or family member to get needed things in place before you go home if possible. A therapist can come to your home to make recommendations for safety equipment. Ask your health care provider if you would benefit from this service or from home care. Getting needed equipment Ask your health care provider for a list of any medical equipment and supplies you will need at home. These may include items such as: Walkers. Canes. Wheelchairs. Hand-strengthening devices. Special eating utensils. Medical equipment can be rented or purchased, depending on your insurance coverage. Check with your[employer] company about what is covered. Keeping follow-up visits After a stroke, you will need to follow up regularly with a health care provider. You may also needrehabilitation, which can include physical therapy, occupational therapy, or speech-language therapy. Keeping these appointments is very important to your recovery after a stroke. Be sure to bring yourmedicine list and discharge papers with you to your appointments. If you need help to keep track ofyour schedule, use a calendar or appointment reminder. Preventing another stroke Having a stroke puts you at risk for another stroke in the future. Ask your health care provider what actions you can take to lower the risk. These may include: Increasing how much you exercise. Making a healthy eating plan. Quitting smoking. Managing other health conditions, such as high blood pressure, high cholesterol, or diabetes. Limiting alcohol use. Knowing the warning signs of a stroke Make sure you understand the signs of a stroke. Before you leave the hospital, you will receive information outlining the stroke warning signs. Share these with your friends and family members. BE FAST is an easy way to remember the main warning signs of a stroke: B - Balance. Signs are dizziness, sudden trouble walking, or loss of balance. E - Eyes. Signs are trouble seeing or a sudden change in vision. F - Face. Signs are sudden weakness or numbness of the face, or the face or eyelid drooping on one side. A - Arms. Signs are weakness or numbness in an arm. This happens suddenly and usually on one side of the body. S - Speech. Signs are sudden trouble speaking, slurred speech, or trouble understanding what peoplesay. T - Time. Time to call emergency services. Write down what time symptoms started. Other signs of stroke may include: A sudden, severe headache with no known cause. Nausea or vomiting. Seizure. These symptoms may represent a serious problem that is an emergency. Do not wait to see if the symptoms will go away. Get medical help right away. Call your local emergency services (911 in the [place] Do not drive yourself to the hospital. Make note of the time that you had your first symptoms. Your emergency responders or emergency roomstaff will need to know this information. Summary Being discharged from the hospital after a stroke can feel overwhelming. It is normal to feel scared or anxious. Make sure you take medicines exactly as told by your health care provider. Know the warning signs of a stroke, and get help right way if you have any of these symptoms. BE FAST is an easy way to remember the main warning signs of a stroke. This information is not intended to replace advice given to you by your health care provider. Make sure you discuss any questions you have with your health care provider. Document Released: 10/20/2017 Document Revised: 07/20/2018 Document Reviewed: 10/20/2017 [employer] Patient Education 2020 [employer]. Follow Up Care 05/22/2022 04:24:14 With:EDISON RIVERO Address: [facility] [address] [place] [id number] [phone] [facility] (1) When:5 to 7 days Comments:Please call and set up a Hospital follow up appointment With:DEVIN FERRER MD Address: [address] [place] [address] Hematology & [place] [address]- When:Within 2 Week(s) Comments:Please call office for Follow Up appointment With:LUIS VERA MD, [facility], Surgery, Vascular Surgeons Address: [facility] [address] [place] [address] [place] [id number] When: Unknown Comments:Please Call Office on 05/30/2022, and set up a Surgical Follow Up Appointment With:[facility] [phone] Address:Unknown When:1-2 days [facility] 10-30-2022 Note Discharge Instructions Thank you for allowing [facility] to assist you with your healthcare needs. The following is importantdischarge information regarding your hospital visit. Your Care Team EDISON RIVERO DO Your Diagnosis Acute left-sided weakness What to do next Follow Up Appointments Follow Up with EDISON RIVERO When Within 5 to 7 days Why: Please call and set up a Hospital follow up appointment Where: [facility] [address] [place] [address] [phone] Business (1) Follow Up with DEVIN FERRER MD When In 2 weeks Why: Please call office for Follow Up appointment Where: [address] [facility] [place]ematology [place] [address]- Follow Up with LUIS VERA MD, [facility], Surgery, Vascular Surgeons When Why: Please Call Office on 05/30/2022, and set up a Surgical Follow Up Appointment Where: [facility] [address] [facility] [address] [place] [address] Follow Up with [facility] [phone] When Within 1-2 days The Following Activity and Diet Have Been Ordered for You Discharge Activity - Ordered -- No lifting more than 10 lbs for 3 more days / You May Shower starting today Discharge Diet - Ordered -- No changes were made to your diet during your hospital stay / Please resume your pre hospitalization diet on discharge The Following Equipment Has Been Ordered for You No qualifying data available. The Following Treatments Have Been Ordered for You Discharge Labs No qualifying data available. Discharge Radiology No qualifying data available. Other Therapies No qualifying data available. Post Acute Orders No qualifying data available. Someone Will Contact You Regarding These Home Health Referrals Consult Home Health - OT - Ordered -- 05/29/22 14:08:00 EDT, Home Therapy Order: OT Eval & Treat, Home Therapy Instruction: Full weight bearing, Reason: ADL assistance Consult Home Health - PT - Ordered -- 05/29/22 14:08:00 EDT, Home Therapy Order: PT Eval & Treat, Reason: General Debility, Home Therapy Instruction: Full weight bearing Allergies penicillin Medications Please ask your primary doctor or pharmacist before taking any other medication not listed, including over the counter drugs, herbal medications, vitamins and or supplements as they may interact withyour home medications. What How Much When Instructions Last Dose New albuterol (albuterol MDI (90 mcg/ inh) CFC free inhalation aerosol) 2 puff(s) by inhalation Four (4) times a day as needed for as needed for wheezing Duration: 30 Days Pickup at [facility] #[id number] NONE GIVEN TODAY 05/29/2022 New atorvastatin (Lipitor 40 mg oral tablet) 1 tab(s) by mouth Once a day Pickup at [id number] 05/28/2022 @ 9:00PM New clopidogrel (Plavix 75 mg oral tablet) 1 tab(s) by mouth Once a day Pickup at [facility] #[id number] @ 9:00AM Unchanged furosemide (furosemide 40 mg oral tablet) 1 tab(s) by mouth Every other day NONE GIVEN IN THE HOSPITAL Unchanged lansoprazole (lansoprazole 30 mg oral delayed release capsule) 1 cap by mouth Once a day 05/29/2022 @ 9:00AM Pharmacy Information [facility] #[id number]: [address] [place], [place] [phone] Please take this list to your next doctor s visit. Bring all medications you take, including over the counter medications, herbals and other supplements with you to your doctor s visit. Patients and families are reminded to discard old lists and to update any records with all medication providers or retail pharmacies. Education Materials Carotid Stenosis and Carotid Endarterectomy Care After Surgery Refer to this sheet in the next few weeks. These discharge instructions provide you with general information on caring for yourself after you leave the hospital. Your caregiver may also give you specific instructions. Your treatment has been planned according to the most current medical practices available, but unavoidable complications sometimes occur. If you have any problems or questions afterdischarge, please call your caregiver. HOME CARE INSTRUCTIONS It is normal to be sore for a couple weeks after surgery. See your caregiver if this seems to be getting worse rather than better. Take showers, not baths, for a few days after surgery or until instructed otherwise by your caregiver. Do not take baths or swim until directed by your surgeon. Only take hbid-vbi-tdlorqu or prescription medicines for pain, discomfort, or fever as directed by your caregiver. A blood thinner (anticoagulant) may be prescribed after surgery. This medicine should be taken exactly as directed. Change bandages (dressings) as directed by your caregiver. Resume your normal activities as directed by your caregiver. Avoid lifting until you are instructed otherwise. Make an appointment to see your caregiver for stitches (suture) or staple removal when instructed. Stop smoking if you smoke. This is a grave risk factor. Stop taking the pill (oral contraceptives) unless your caregiver recommends otherwise. Maintain good blood pressure control. Exercise regularly or as instructed. Lower blood lipids (cholesterol and triglycerides). Eat a heart-healthy diet. Manage heart problems if they are contributing to your risk. SEEK MEDICAL CARE IF: There is increased bleeding from the wound. You notice redness, swelling, or increasing pain in the wound. You notice swelling in your neck or have difficulty breathing or talking. You notice a bad smell or pus coming from the wound or dressing. SEEK IMMEDIATE MEDICAL CARE IF: Your initial symptoms are getting worse rather than better. You develop any abnormal bruising or bleeding. You develop a rash. You have difficulty breathing. You develop any reaction or side effects to medicine given. You develop chest pain, shortness of breath, or pain or swelling in your legs. You have a return of symptoms or problems that caused you to have this surgery. You develop a temporary loss of vision. You develop temporary numbness on one side. You develop a temporary inability to speak (aphasia). You develop temporary areas of weakness. You have problems or concerns that have not been answered. MAKE SURE YOU: Understand these instructions. Will watch your condition. Will get help right away if you are not doing well or get worse. Document Released: 02/03/2006 Document Re-Released: 10/11/2010 [facility] Patient Information 2011 [facility]. Hospital Discharge After a Stroke Being discharged from the hospital after a stroke can feel overwhelming. Many things may be different, and it is normal to feel scared or anxious. Some stroke survivors may be able to return to theirhomes, and others may need more specialized care on a temporary or permanent basis. Your stroke care team will work with you to develop a discharge plan that is best for you. Ask questions if you do not understand something. Invite a friend or family member to participate in discharge planning. Understanding and following your discharge plan can help to prevent another stroke or other problems. Understanding your medicines After a stroke, your health care provider may prescribe one or more types of medicine. It is important to take medicines exactly as told by your health care provider. Serious harm, such as another stroke, can happen if you are unable to take your medicine exactly as prescribed. Make sure you understand: What medicine to take. Why you are taking the medicine. How and when to take it. If it can be taken with your other medicines and herbal supplements. Possible side effects. When to call your health care provider if you have any side effects. How you will get and pay for your medicines. Medical assistance programs may be able to help you pay for prescription medicines if you cannot afford them. If you are taking an anticoagulant, be sure to take it exactly as told by your health care provider. This type of medicine can increase the risk of bleeding because it works to prevent blood from clotting. You may need to take certain precautions to prevent bleeding. You should contact your health care provider if you have: Bleeding or bruising. A fall or other injury to your head. Blood in your urine or stool (feces). Planning for home safety Take steps to prevent falls, such as installing grab bars or using a shower chair. Ask a friend or family member to get needed things in place before you go home if possible. A therapist can come to your home to make recommendations for safety equipment. Ask your health care provider if you would benefit from this service or from home care. Getting needed equipment Ask your health care provider for a list of any medical equipment and supplies you will need at home. These may include items such as: Walkers. Canes. Wheelchairs. Hand-strengthening devices. Special eating utensils. Medical equipment can be rented or purchased, depending on your insurance coverage. Check with your[employer] company about what is covered. Keeping follow-up visits After a stroke, you will need to follow up regularly with a health care provider. You may also needrehabilitation, which can include physical therapy, occupational therapy, or speech-language therapy. Keeping these appointments is very important to your recovery after a stroke. Be sure to bring yourmedicine list and discharge papers with you to your appointments. If you need help to keep track ofyour schedule, use a calendar or appointment reminder. Preventing another stroke Having a stroke puts you at risk for another stroke in the future. Ask your health care provider what actions you can take to lower the risk. These may include: Increasing how much you exercise. Making a healthy eating plan. Quitting smoking. Managing other health conditions, such as high blood pressure, high cholesterol, or diabetes. Limiting alcohol use. Knowing the warning signs of a stroke Make sure you understand the signs of a stroke. Before you leave the hospital, you will receive information outlining the stroke warning signs. Share these with your friends and family members. BE FAST is an easy way to remember the main warning signs of a stroke: B - Balance. Signs are dizziness, sudden trouble walking, or loss of balance. E - Eyes. Signs are trouble seeing or a sudden change in vision. F - Face. Signs are sudden weakness or numbness of the face, or the face or eyelid drooping on one side. A - Arms. Signs are weakness or numbness in an arm. This happens suddenly and usually on one side of the body. S - Speech. Signs are sudden trouble speaking, slurred speech, or trouble understanding what peoplesay. T - Time. Time to call emergency services. Write down what time symptoms started. Other signs of stroke may include: A sudden, severe headache with no known cause. Nausea or vomiting. Seizure. These symptoms may represent a serious problem that is an emergency. Do not wait to see if the symptoms will go away. Get medical help right away. Call your local emergency services (911 in the [place] Do not drive yourself to the hospital. Make note of the time that you had your first symptoms. Your emergency responders or emergency roomstaff will need to know this information. Summary Being discharged from the hospital after a stroke can feel overwhelming. It is normal to feel scared or anxious. Make sure you take medicines exactly as told by your health care provider. Know the warning signs of a stroke, and get help right way if you have any of these symptoms. BE FAST is an easy way to remember the main warning signs of a stroke. This information is not intended to replace advice given to you by your health care provider. Make sure you discuss any questions you have with your health care provider. Document Released: 10/20/2017 Document Revised: 07/20/2018 Document Reviewed: 10/20/2017 Elsevier Patient Education 2020 [employer] Inc. Additional Information VACCINATE! IT SAVES LIVES! Members of the community who have not yet received the COVID-19 vaccine and would like to receive it can visit one of [facility] vaccine clinics. There are many vaccine clinic locations within the [facility]. For locations and available times, please visit [email or web address].[email or web address]/. It is important to note that some COVID mobile vaccine clinics are held outdoors and may be canceled in rainy or stormy conditions. To learn more about pediatric vaccinations (ages 5-11), we invite you to visit the [facility] webpage. [email or web address] [email or web address] learn more about the COVID-19 vaccine, we invite you to visit the [facility] website for a list of frequently asked questions. [email or web address].pdf [facility] Patient Portal Access Instructions: Stay connected with your healthcare team and access your personal medical information anytime with the [facility] Patient Portal.If you would like a full copy of your medical records, please contact the [facility] Medical Records Department, Monday through Monday between 8a.m. and 4:30p.m. Please follow the directions below to access the portal: 1.Access the email account you provided upon registration to the [facility].2.Look for an invitation email from [facility].3.Open the email and access the invitation link: Accept Invitation to [facility]4.Fill in the required junior to create your account. Sign into www.[employer] with your username and password that you created in the above steps to stay up to date. You can then view a summary of results, a summary of your visits, and the ability to download your summaries to your computer or send the information securely to a physician. Remember that your healthcare information is confidential, so carefully consider who you will allow to register on the [facility] Patient Portal for access to your information. You can also access the [facility] Patient Portal on the [employer] kristie. Simply click on Health Records under [employer] and then click on the [facility] logo. HOW TO SAFELY DISPOSE OF PRESCRIPTION MEDICATIONS Please use one of the following methods to safely dispose of your unused medications. 1.Use a drug disposal kit: the drug disposal pouch allows you to safely discard your old and unuseddrugs. Ask your nurse to give you one when you are discharged.2.Visit a local take-back location: Many local pharmacies and police departments have programs that collect old and unwanted prescriptiondrugs. Call your local pharmacy or go to http://MediVision.Campus Job/4T7Nr2c to find one close to you.3.Make use of household items: Use cat litter or old coffee grounds to dispose medications if other options arenot available. Mix your drugs with these household products, seal them in an airtight container andthrow it into the garbage. Call [facility]: [phone] to be sure your drugs can be disposed of in this way. Some medicines may require a different approach.4.Never flush your medications down the toilet. IF YOU HAVE BEEN PRESCRIBED AN OPIOID FOR PAIN If you have been prescribed an opioid (such as hydrocodone, oxycodone or morphine), it is critical to understand the possible side effects and risks of opioid pain medications. Even when taken as directed, opioids can have several side effects including: Tolerance, meaning you might need to take more of a medication for the same pain relief. Nausea, vomiting and/or constipation. Sleepiness, dizziness, dry mouth, confusion, depression or itching. Physical dependence, meaning you have withdrawal symptoms when a medication is stopped, can develop within a few days. KNOW YOUR RESPONSIBILITIES It is important to know exactly how much and how often to take the opioid pain medications you are prescribed. Never take opioids in higher amounts or more often than prescribed. Do not combine opioids with alcohol or other drugs that cause drowsiness, such as benzodiazepines, also known as benzos, including diazepam and alprazolam, muscle relaxants or sleep aids. Never sell or share prescription opioids. This is illegal. Store opioids in a secure place and out of reach of others (including children, family, friends and visitors). The last page of this document has been signed and retained as a CHART COPY. Signatures Patient Education Materials 8- Carotid Stenosis and Carotid Endarterectomy (08/2011)(CUSTOM) Hospital Discharge After a Stroke Medication Leaflets My discharge plan and instructions have been reviewed and explained to me and I,BRITTANY ROBERTSON understand my current condition and have read and understand these discharge instructions. I have received a written copy of the plan/instructions. If I have questions, I am aware that I should contact my doctor. Patient/[facility] Cardiovascular Service Line Signature: Date/Time: Relationship to Patient: Witness Name/Signature: Date/Time: [id number] Hematology Progress note Date of Service 05/29/22 Subjective Patient seen during rounds this am, no complaints. Objective Vitals and Measurements T: 36.8 C (Oral) TMIN: 36.7 C (Oral) TMAX: 36.9 C (Oral) HR: 93(Monitored) RR: 20 BP: 122/75 SpO2: 93% Intake and Output 7AM Yesterday to 7AM Today Intake and Output (Last 24 hours) Intake Oral Intake 1200.00 Output Urine Voided 1600.00 Stool Count 0.00 Emesis Count 0.00 Total Summary Total Intake 1200.00 Total Output 1600.00 Fluid Balance -400.00 Physical Exam Weight Dosing Weight: 77.3 kg (05/22/22) Alert oriented x3 Normal speech Normal respirations Normal affect Medications Medications (18) Active Scheduled: (5) atorvastatin 40 mg tablet 40 mg 1 tab(s), Oral, qDay clopidogrel 75 mg Tablet 75 mg 1 tab(s), Oral, qDay famotidine 20 mg tablet 20 mg 1 tab(s), Oral, BID Nicoderm patch REMOVAL 1 EA, Miscellaneous, q24h nicotine 7 mg/24 hr ER patch 7 mg 1 patch(es), Transdermal, q24h Continuous: (0) PRN: (13) acetaminophen 325 mg Suppository 650 mg 2 supp, Rectal, q4h acetaminophen 325 mg Tablet 650 mg 2 tab(s), Oral, q4h acetaminophen 325 mg Tablet 650 mg 2 tab(s), Oral, q4h acetaminophen-HYDROcodone 325-5 mg tablet 1 tab(s), Oral, q4h Al hydrox/Mg hydrox/simethicone 200-200-20 mg/5 mL Susp UD 30 mL, Oral, q2h albuterol - ipratropium 2.5 mg-0.5 mg/3 mL Inhal Eli UD 3 mL, Inhalation, q4hRT albuterol - ipratropium 2.5 mg-0.5 mg/3 mL Inhal Eli UD 3 mL, Inhalation, q2hRT enalaprilat 1.25 mg/mL (2 mL) vial 1.25 mg 1 mL, IV Push, q6h hydromorphone 1 mg/mL (1mL) INJ 1 mg 1 mL, IV Push, q2h morphine 2 mg/mL 1 mL syringe 2 mg 1 mL, IV Push, q4h naloxone 0.4 mg/mL (1mL) vial 0.4 mg 1 mL, IV Push, AsDirected ondansetron 2 mg/ 1 mL 2 mL INJ 4 mg 2 mL, IV Push, q6h ondansetron 4 mg DIS tablet 4 mg 1 tab(s), Oral, q6h Lab Results No 36 Hour Lab Data EKG No qualifying data available. Assessment/Plan Acute left-sided weakness 51 yof with RUE arterial thrombotic event with ischemia of fingertips, dysarthria, left sided facial/arm weakness, right hand pain, cough and fever. CT head and MRI brain showed right parietal and posterior temporal lobe acute CVA. Hypercoagulable work-up -negative for prothrombin gene mutation, heparin-induced thrombocytopenia, factor V Leiden mutation, lupus anticoagulant Protein S free antigen within normal limits, Protein C low at 46, Antithrombin III low at 41 IgG cardiolipin, IgA cardiolipin, beta-2 glycoprotein antibodies negative, borderline elevation of IgM cardiolipin antibody. 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 Patient s/p IV heparin, She is on 81 mg of aspirin along with clopidogrel 75 mg daily. DC anticoagulation due to high risk for bleeding events with multiple anticoagulants, underlying reason atherosclerotic disease. Tobacco dependence - quitting tobacco strongly encouraged.Patient motivated. CT chest without contrast multifocal nodular consolidation, bilateral, most prominent within the left upper lobe, left lower lobe, consistent with pneumonia short term follow-up in 3 months recommended. Coronary artery disease. Emphysema. Malignancy can be associated with thromboembolic events revd, breast exam normal , prev mammo few yrs ago, will pursue as outpt.colonoscopy this yr negative, no papsmear had partial hysterectomy withunilateral oophorectomy. Normocytic anemia work up -Hemoglobin 9.9, WBC platelets within normal limits, Reticulocyte count 1.1%, creatinine 0.62, GFR 60 mill per minute, homocystine normal at 4.7, ferritin 82.6, haptoglobin 301, vitamin B12 1461, outpt follow up in 2wks revd. Digitally Signed by DEVIN FERRER MD on 05/29/2022 02:02 PM [facility] [id number] Discharge summary Date of Service 05/29/2022 Discharge Diagnosis Cerebral infarction, unspecified (I63.9 - ICD-10-CM) Pneumonia, unspecified organism (J18.9 - ICD-10-CM) Hemiplegia and hemiparesis following cerebral infarction affecting left non- dominant side (I69.354 - ICD-10-CM) Dysarthria and anarthria (R47.1 - ICD-10-CM) Pain in right hand (M79.641 - ICD-10-CM) Facial weakness following cerebral infarction (I69.392 - ICD-10-CM) Stricture of artery (I77.1 - ICD-10-CM) Peripheral vascular disease, unspecified (I73.9 - ICD-10-CM) Occlusion and stenosis of bilateral carotid arteries (I65.23 - ICD-10-CM) Acute left-sided weakness (R53.1 - ICD-10-CM) Additional Orders: Discontinued: Dextrose 5%/Sod Chloride 0.45%/10mEq per L Potassium Chloride 1,000 mL,Start: 05/26/22 13:37:00 EDT, Rate: 100 mL/hr, 05/26/22 13:37:00 EDT Discontinued: Heparin HBW Bolus 5000 units/mL,Start: 05/22/22 17:30:00 EDT, Dose = 5,411 unit(s), =1.08 mL, IV Push, q6h, PRN, Protocol, Weight Based Heparin, 05/22/22 17:30:00 EDT Discontinued: Heparin HBW Bolus 5000 units/mL,Start: 05/22/22 17:30:00 EDT, Dose = 3,092 unit(s), =0.62 mL, IV Push, q6h, PRN, Protocol, Weight Based Heparin, 05/22/22 17:30:00 EDT Discontinued: Heparin for IV 25,000 unit(s) [18 unit(s)/kg/hr] + Dextrose 5% Premix Diluent 250 mL,Start: 05/22/22 17:30:00 EDT, Rate: 13.91 mL/hr, 05/22/22 17:30:00 EDT Modified: Maalox,Start: 05/27/22 16:16:00 EDT, Dose = 30 mL, Susp, Oral, q2h, PRN, Indigestion, 0, 05/27/22 16:16:00 EDT Hospital Course Patient is 51-year-old female with past medical history significant for tobacco abuse who initiallypresented to [facility] with chief complaint of dysarthria, left-sided facial/arm weakness, right hand pain, cough, fever. CT scan head was consistent with right parietal and posterior temporal lobeacute CVA. CTA /neck consistent with left subclavian occlusion, left carotid stenosis 50-69%. Chestx- ray consistent with bilateral consolidation. Patient was transferred to [facility] for further management. Neurology and vascular surgery were consulted initially. Due to severe right hand pain andinitial cyanosis, right upper extremity arterial Doppler was performed that showed severe peripheral arterial disease with greater than 75% stenosis in the right innominate. patient was started on heparin by weight and aspirin. Neurology recommending hypercoagulable work-up which was sent. Hypercoagulable work-up notable for mildly elevated anticardiolipin IgM. Vascular Surgery re-evaluated pt on05/25. 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 Pt monitored in CVSI postop. Hematology consulted due to elevated anticardiolipin patient was initially maintained on heparin by weight. Had discussion with hematology attending Dr. Ferrer recommending to hold off on further anticoagulation patient will be followed up in hematology c linic continue with antiplatelet agent per vascular surgery recommendations. Discussed case with Dr. Vera recommending Plavix. Patient will be followed up with vascular surgery in clinic. A1c 5.8 LDL outside of calculable range patient started on high intensity statin. We will have patient follow-up with [facility]. Patient evaluated by PT recommending 24-hour care at home. Patient with supportive family feels comfortable with current care. Discussed treatment plan with patient at bedside answered all questions. Patient was treated for multifocal pneumonia course of Levaquin currently on room air saturating >90% Acute Embolic CVA Right upper extremity severe peripheral arterial disease Left-sided subclavian stenosis Bilateral carotid artery stenosis Community acquired pneumonia w/ Acute Hypoxic respiratory failure Elevated troponin Tobacco abuse Right innominate stenosis s/p Stent Allergies penicillin Consults Consult to Physician - Ordered -- 05/22/22 8:19:00 EDT, ANDIE THOMPSON DO, Routine, CVA Consult to Physician - Ordered -- 05/22/22 8:25:00 EDT, LUIS VERA MD, Routine, Caroid stenosis, sub clavian stenosis Consult to Physician - Ordered -- 05/27/22 15:31:00 EDT, DEVIN FERRER MD, Routine, Atrial thrombus, evaluate for elevated anticardiopin IgM Consult to Tobacco Cessation Program (Consult to Smoking Cessation Program) - Ordered -- 05/22/22 5:38:00 EDT, Physician Order Physical Exam Vitals and Measurements T: 36.8 C (Oral) TMIN: 36.7 C (Oral) TMAX: 36.9 C (Oral) HR: 93(Monitored) RR: 20 BP: 122/75 SpO2: 93% Weight Dosing Weight: 77.3 kg (05/22/22) General: alert, NAD HEENT: eyes show no evidence of icterus Cardiovascular: regular rate and rhythm, no S3/S4 Respiratory: Lungs CTABL, respirations non labored Abdomen: soft, non-tender, positive bowel sounds, no organomegaly, no guarding, no rigidity Psych: cooperative Extremities: no peripheral edema Neurological: speech normal, motor strength normal and symmetrical bilaterally, surgical incision without signs of infection Code Status Code Status - Ordered -- 05/22/22 7:46:00 EDT, Full Code, Constant Order Admission Date 05/22/2022 Discharge Date 05/29/2022 Medications New Prescription albuterol (albuterol MDI (90 mcg/inh) CFC free inhalation aerosol)2 puff(s) by inhalation four (4) times a day as needed as needed for wheezing for 30 Days. Refills: 0. atorvastatin (Lipitor 40 mg oral tablet)1 tab(s) by mouth once a day. Refills: 0. clopidogrel (Plavix 75 mg oral tablet)1 tab(s) by mouth once a day. Refills: 0. Unchanged furosemide (furosemide 40 mg oral tablet)1 tab(s) by mouth every other day. lansoprazole (lansoprazole 30 mg oral delayed release capsule)1 cap by mouth once a day. Follow Up Follow Up with LUIS VERA MD, [facility], Surgery, Vascular Surgeons When Within 1-2 days Where: [facility] [address] [facility] [address] [place] [address] Follow Up with DEVIN FERRER MD When Within 1-2 days Where: [address] [facility] [place] [address]- Follow Up with [facility] [phone] When Within 1-2 days Follow Up with EDISON RIVERO When Within 1-2 days Where: [facility] [address] [place] [address]- [phone] Business (1) Follow Up Appointments No qualifying data available. Follow Up Labs/Studies Discharge Labs No Follow-up Labs Discharge Studies No Follow-up Studies Discharge Diet No qualifying data available. Discharge Activity No qualifying data available. Condition on Discharge Stable Discharge Disposition Home Information Provided To Patient at bedside Time Spent Greater than 30 minutes was spent reviewing chart, placing orders developing treatment plan with greater than 50% of time spent at bedside counseling/coordinating care Digitally Signed by ALEXEY BIRD MD on 05/29/2022 01:10 PM [facility] [id number] Hematology Progress note Date of Service 05/28/2022 Subjective Patient seen during rounds this morning, c/o R sided neck discomfort, Objective Vitals and Measurements T: 36.5 C (Oral) TMIN: 36.5 C (Oral) TMAX: 36.8 C (Oral) HR: 98(Monitored) RR: 18 BP: 96/72 SpO2: 94% Intake and Output 7AM Yesterday to 7AM Today Intake and Output (Last 24 hours) Intake Oral Intake 600.00 Output Urine Voided 900.00 Stool Count 0.00 Emesis Count 0.00 Total Summary Total Intake 600.00 Total Output 900.00 Fluid Balance -300.00 Physical Exam Alert oriented x3 Normal speech Normal respirations Normal affect Weight Dosing Weight: 77.3 kg (05/22/22) Medications Medications (23) Active Scheduled: (6) aspirin 81 mg Chewable 81 mg 1 tab(s), Oral, qDay atorvastatin 40 mg tablet 40 mg 1 tab(s), Oral, qDay clopidogrel 75 mg Tablet 75 mg 1 tab(s), Oral, qDay famotidine 20 mg tablet 20 mg 1 tab(s), Oral, BID Nicoderm patch REMOVAL 1 EA, Miscellaneous, q24h nicotine 7 mg/24 hr ER patch 7 mg 1 patch(es), Transdermal, q24h Continuous: (2) D5/0.45%NACL + KCL 10 mEq/L 1,000 mL 1,000 mL, Intravenous, 100 mL/hr heparin 25,000 unit(s) [18 unit(s)/kg/hr] + Dextrose 5% Premix Diluent 250 mL 250 mL, Intravenous, 13.91 mL/hr PRN: (15) acetaminophen 325 mg Suppository 650 mg 2 supp, Rectal, q4h acetaminophen 325 mg Tablet 650 mg 2 tab(s), Oral, q4h acetaminophen 325 mg Tablet 650 mg 2 tab(s), Oral, q4h acetaminophen-HYDROcodone 325-5 mg tablet 1 tab(s), Oral, q4h Al hydrox/Mg hydrox/simethicone 200-200-20 mg/5 mL Susp UD 30 mL, Oral, q2h albuterol - ipratropium 2.5 mg-0.5 mg/3 mL Inhal Eli UD 3 mL, Inhalation, q4hRT albuterol - ipratropium 2.5 mg-0.5 mg/3 mL Inhal Eli UD 3 mL, Inhalation, q2hRT enalaprilat 1.25 mg/mL (2 mL) vial 1.25 mg 1 mL, IV Push, q6h heparin 5,000 units/mL (1 mL) vial 5,411 unit(s) 1.08 mL, IV Push, q6h heparin 5,000 units/mL (1 mL) vial 3,092 unit(s) 0.62 mL, IV Push, q6h hydromorphone 1 mg/mL (1mL) INJ 1 mg 1 mL, IV Push, q2h morphine 2 mg/mL 1 mL syringe 2 mg 1 mL, IV Push, q4h naloxone 0.4 mg/mL (1mL) vial 0.4 mg 1 mL, IV Push, AsDirected ondansetron 2 mg/ 1 mL 2 mL INJ 4 mg 2 mL, IV Push, q6h ondansetron 4 mg DIS tablet 4 mg 1 tab(s), Oral, q6h Lab Results 05/27 02:35 WBC: 10.2 Hgb: 9.9 L Hct: 30.8 L Platelet: 405 Neutrophil %: 81.8 H Glucose Level: 167 H Sodium Level: 139 Potassium Level: 3.9 BUN: 7.0 L Creatinine Lvl (s): 0.62 EKG No qualifying data available. Assessment/Plan Acute left-sided weakness Orders: NILSA (serum) Methylmalonic Acid Protein Electrophoresis Panel RBC Folate Rheumatoid Factor Stool for Occult Blood (Lab) 51 yof with RUE arterial thrombotic event with ischemia of fingertips, dysarthria, left sided facial/arm weakness, right hand pain, cough and fever. CT head and MRI brain showed right parietal and posterior temporal lobe acute CVA. Hypercoagulable work-up -negative for prothrombin gene mutation, heparin-induced thrombocytopenia, factor V Leiden mutation, lupus anticoagulant Protein S free antigen within normal limits, Protein C low at 46, Antithrombin III low at 41 IgG cardiolipin, IgA cardiolipin, beta-2 glycoprotein antibodies negative, borderline elevation of IgM cardiolipin antibody. RUE arterial doppler with severe peripheral arterial disease with greater than 75% stenosis in the right innominate artery, s/p endarterectomy/cutdown on the carotid artery and artery stenting 05/26/2022 by vascular surgery with improved pain. R neck pain due to surgery, pain meds being provided by nursing staff. Patient receiving IV heparin, would suggest anticoagulation with warfarin or NOAC for minimum 6 months at the time of discharge. She is on 81 mg of aspirin along with clopidogrel 75 mg daily. High risk for bleeding issues with NOAC and antiplatelet agents revd, but needed due to ischemic vascular events discussed. Tobacco dependence - quitting tobacco strongly encouraged. CT chest without contrast multifocal nodular consolidation, bilateral, most prominent within the left upper lobe, left lower lobe, consistent with pneumonia short term follow-up in 3 months recommended. Coronary artery disease. Emphysema. Malignancy can be associated with thromboembolic events revd, breast exam normal , prev mammo few yrs ago, will pursue as outpt.colonoscopy this yr negative, no papsmear had partial hysterectomy withunilateral oophorectomy. Normocytic anemia work up -Hemoglobin 9.9, WBC platelets within normal limits, Reticulocyte count 1.1%, creatinine 0.62, GFR 60 mill per minute, homocystine normal at 4.7, ferritin 82.6, haptoglobin 301, vitamin B12 1461, Digitally Signed by DEVIN FERRER MD on 05/28/2022 12:05 PM [facility] [id number] Note Date of Service 05/28/22 Chief Complaint CVA Subjective No major overnight events. Hemodynamically stable. No chest pain, palpitations, shortness of breath, dizziness, nausea, vomiting, diarrhea, fever, chills, abdominal pain. Patient is very pleasant, AAOx3 Objective Vitals and Measurements T: 36.5 C (Oral) TMIN: 36.5 C (Oral) TMAX: 36.8 C (Oral) HR: 98(Monitored) RR: 18 BP: 96/72 SpO2: 94% Intake and Output 7AM Yesterday to 7AM Today Intake and Output (Last 24 hours) Intake Oral Intake 600.00 Output Urine Voided 900.00 Stool Count 0.00 Emesis Count 0.00 Total Summary Total Intake 600.00 Total Output 900.00 Fluid Balance -300.00 Physical Exam General: alert, NAD HEENT: eyes show no evidence of icterus Cardiovascular: regular rate and rhythm, no S3/S4 Respiratory: Lungs CTABL, respirations non labored Abdomen: soft, non-tender, positive bowel sounds, no organomegaly, no guarding, no rigidity Psych: cooperative Extremities: no peripheral edema Neurological: speech normal, motor strength normal and symmetrical bilaterally, surgical incision without signs of infection Weight Dosing Weight: 77.3 kg (05/22/22) Medications Medications (23) Active Scheduled: (6) aspirin 81 mg Chewable 81 mg 1 tab(s), Oral, qDay atorvastatin 40 mg tablet 40 mg 1 tab(s), Oral, qDay clopidogrel 75 mg Tablet 75 mg 1 tab(s), Oral, qDay famotidine 20 mg tablet 20 mg 1 tab(s), Oral, BID Nicoderm patch REMOVAL 1 EA, Miscellaneous, q24h nicotine 7 mg/24 hr ER patch 7 mg 1 patch(es), Transdermal, q24h Continuous: (2) D5/0.45%NACL + KCL 10 mEq/L 1,000 mL 1,000 mL, Intravenous, 100 mL/hr heparin 25,000 unit(s) [18 unit(s)/kg/hr] + Dextrose 5% Premix Diluent 250 mL 250 mL, Intravenous, 13.91 mL/hr PRN: (15) acetaminophen 325 mg Suppository 650 mg 2 supp, Rectal, q4h acetaminophen 325 mg Tablet 650 mg 2 tab(s), Oral, q4h acetaminophen 325 mg Tablet 650 mg 2 tab(s), Oral, q4h acetaminophen-HYDROcodone 325-5 mg tablet 1 tab(s), Oral, q4h Al hydrox/Mg hydrox/simethicone 200-200-20 mg/5 mL Susp UD 30 mL, Oral, q2h albuterol - ipratropium 2.5 mg-0.5 mg/3 mL Inhal Eli UD 3 mL, Inhalation, q4hRT albuterol - ipratropium 2.5 mg-0.5 mg/3 mL Inhal Eli UD 3 mL, Inhalation, q2hRT enalaprilat 1.25 mg/mL (2 mL) vial 1.25 mg 1 mL, IV Push, q6h heparin 5,000 units/mL (1 mL) vial 5,411 unit(s) 1.08 mL, IV Push, q6h heparin 5,000 units/mL (1 mL) vial 3,092 unit(s) 0.62 mL, IV Push, q6h hydromorphone 1 mg/mL (1mL) INJ 1 mg 1 mL, IV Push, q2h morphine 2 mg/mL 1 mL syringe 2 mg 1 mL, IV Push, q4h naloxone 0.4 mg/mL (1mL) vial 0.4 mg 1 mL, IV Push, AsDirected ondansetron 2 mg/ 1 mL 2 mL INJ 4 mg 2 mL, IV Push, q6h ondansetron 4 mg DIS tablet 4 mg 1 tab(s), Oral, q6h Lab Results 05/27 02:35 WBC: 10.2 Hgb: 9.9 L Hct: 30.8 L Platelet: 405 Neutrophil %: 81.8 H Glucose Level: 167 H Sodium Level: 139 Potassium Level: 3.9 BUN: 7.0 L Creatinine Lvl (s): 0.62 EKG No qualifying data available. Assessment/Plan 51-year-old female with past medical history of nicotine abuse presented on 05/22/2022 [facility] ED with dysarthria, left-sided facial/arm weakness, right hand pain, cough, fever. CT head consistent with right parietal and posterior temporal lobe acute CVA. MRI brain with acute acute infarcts involving right MCA territories involving right/temporal lobe, also scattered in right frontal and lateral occipital lobe. SINDY unremarkable. CTA head/neck showed 50-69% stenosis left ICA, less than 50% narrowing KARIN, short segment occlusion of left subclavian artery Neurology and vascular surgery were consulted. Due to severe right hand pain and initial stenosis right upper extremity CTA was done which was unremarkable on 05/22. Right upper extremity arterial duplex 05/23 showed severe PAD with greater than 75% stenosis in right innominate. Patient was startedon heparin. By weight and aspirin. Neurology send hypercoagulable work-up which showed borderline elevation of anticardiolipin IgM. Vascular surgery reevaluated on 05/25 status post right enterectomy/cut down on carotid artery and retrograde imaging, innominate artery stenting on 05/26. 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 right enterectomy/cut down on carotid artery and retrograde imaging, innominate artery stenting on 05/26 On heparin drip Anticardiolipin IgM antibody borderline elevation Hematology following Pneumonia Chest x-ray on 05/[address] thorax without contrast 05/27/2022 showed multifocal nodular consolidation bilaterally more prominent within left upper lobe and left lower lobe more compatible with pneumonia Finished 7 days of levofloxacin on 05/28/2022 On 2 L O2 Nicotine abuse On nicotine patch DVT prophylaxis On heparin drip F/u PT recommendations Digitally Signed by NEEL COOPER MD on 05/28/2022 03:54 PM [facility] [id number] Hematology Consult note Date of Service 05/27/2022 Reason for Consultation Arterial thrombus This is a split/shared visit between Dr. Ferrer and myself History of Present Illness Pt is a 51 year old female with PMHx: tobacco use. Pt presented to the hospital on 05/22 with c/o dysarthria, left sided facial/arm weakness, right hand pain, cough and fever. CT head and MRI brain showed right parietal and posterior temporal lobe acute CVA. CTA head/neck showed left subclavian occlusion, left carotid stenosis 50-69%. Pt also had doppler of the RUE and showed severe peripheral arterial disease with greater than 75% stenosis in the right innominate. Neurology and vascular surgery were consulted. IV heparin was started. Vascular surgery performed endarterectomy/cutdown on the carotid artery and artery stenting yesterday. CXR also showed PNA, pt on Levaquin. Today pt is resting in bed. She reports a week ago she stared having right hand burning. She initially thought she got a chemical on them from work and went to the ER on . On Monday her hand pain was worse and she was told she started slurring her words and had left arm weakness. She reports those symptoms have improved some. She states she has no previous history of blood clots, cancer, autoimmune disorders. Her mother had history of 2 CVAs and Lupus. Pt reports smoking history for almost all her life, she states she currently at 1 pack/day. She denies alcohol use and substance use. Will see what rest of hypercoag workup shows but tobacco use can be possible cause. Lab Results Test Name Test Result Date/TimeWBC 10.2 10^3/mcL 05/27/2022 02:35 EDT Hgb 9.9 G/dL (Low) 05/27/2022 02:35 EDT Platelet 405 10^3/mcL 05/27/2022 02:35 EDT Review of Systems 14 system review is negative except as charted in the HPI Physical Exam Vitals and Measurements T: 36.9 C (Oral) TMIN: 36.19 C TMAX: 36.9 C (Oral) HR: 96(Monitored) RR: 20 BP: 135/97 BP: 80/62(Line) SpO2: 92% General Appearance: no acute distress Eyes: PERRLA Nose: External nose normal Ears: External ears normal Throat: Trachea midline Neck: no mass Lymph nodes: Not palpable Cardiac: RRR S1 and S2 no murmur Lungs: clear bilaterally Abdomen: soft non-tender BSx4 Neurological: A&Ox3 follows commands Skin: warm dry and intact Musculoskeletal: strength intact Psychiatric: appropriate mood and affect Weight Dosing Weight: 77.3 kg (05/22/22) Lab Results 05/27 02:35 WBC: 10.2 Hgb: 9.9 L Hct: 30.8 L Platelet: 405 Neutrophil %: 81.8 H Glucose Level: 167 H Sodium Level: 139 Potassium Level: 3.9 BUN: 7.0 L Creatinine Lvl (s): 0.62 05/26 04:23 WBC: 9.2 Hgb: 11.0 L Hct: 34.3 Platelet: 384 Neutrophil %: 64.6 Glucose Level: 94 Sodium Level: 141 Potassium Level: 3.7 BUN: 8.0 Creatinine Lvl (s): 0.68 Imaging Results and Diagnostics (05/21/2022 19:[address] Angiography Neck w/ Contrast) IMPRESSION: Acute right MCA territory infarct in the right parietal and posterior temporal lobes. Lack of contrast opacified vessels within the infarcted territory. No territorial large vessel occlusion is identified, with exception to a small right MCA M4 branch over the right parietal convexity. Communicated intracranial results to Dr. Bradley Brasher at 8:32 p.m. on 05/21/2022. Moderate, 50-69%, stenosis of the proximal left internal carotid artery from predominantly noncalcified plaque. Mild, less than 50%, narrowing of the proximal right internal carotid artery from predominantly noncalcified plaque. Short-segment occlusion of the left subclavian artery proximal to the vertebral artery origin. Left greater than right upper lobe patchy consolidations with bronchial wall thickening concerning for infection or alternatively aspiration given presence of secretions/debris in the distal trachea and fluid in the midesophagus although correlate clinically and follow-up to resolution. [1] (05/21/2022 20:[address] Angiography Head w/ Contrast) IMPRESSION: Acute right MCA territory infarct in the right parietal and posterior temporal lobes. Lack of contrast opacified vessels within the infarcted territory. No territorial large vessel occlusion is identified, with exception to a small right MCA M4 branch over the right parietal convexity. Communicated intracranial results to Dr. Bradley Brasher at 8:32 p.m. on 05/21/2022. Moderate, 50-69%, stenosis of the proximal left internal carotid artery from predominantly noncalcified plaque. Mild, less than 50%, narrowing of the proximal right internal carotid artery from predominantly noncalcified plaque. Short-segment occlusion of the left subclavian artery proximal to the vertebral artery origin. Left greater than right upper lobe patchy consolidations with bronchial wall thickening concerning for infection or alternatively aspiration given presence of secretions/debris in the distal trachea and fluid in the midesophagus although correlate clinically and follow-up to resolution. [2] (05/21/2022 19:[address] Head or Brain w/o Contrast) IMPRESSION: Loss of the diop-white matter differentiation of the right parietal and posterior temporal lobes better visualized on same day CT angiography of the head given significant motion artifact on this exam. Please see report for details and with critical results communication notification. Mucosal thickening as well as aerated secretions in the paranasal sinuses which may be seen with acute sinusitis. (05/22/2022 15:28 EDT MRI Brain w/o Contrast) IMPRESSION: Acute infarcts in the right MCA territory involving predominantly the right parietal and temporal lobe although also scattered in the right frontal lobe and lateral occipital lobe. Additional small infarcts in the bilateral cerebellar hemispheres posteriorly. [3] (05/22/2022 15:[address] Angiography Upper Extremity Right) IMPRESSION: No large vessel occlusion or hemodynamically significant stenosis of the right upper extremity. [4] Assessment/Plan Acute left-sided weakness CVA, neurology and vascular surgery following, pt right innominate stenosis and emboli to the righthand, vascular performed endarterectomy/cutdown on the carotid artery and artery stenting yesterday PNA, pt on Levaquin Hypercoags ordered, Cardiolipin IgM 12.5, borderline, will see what rest of hypercoag workup shows Pt reported long history of tobacco use which is a likely cause of her arterial thrombus Please see Dr. Ferrer's addendum for further recommendations Problem List/Past Medical History Ongoing Seasonal allergies Historical No qualifying data Procedure/Surgical History Abdominal hysterectomy Medications aspirin, 81 mg= 1 tab(s), Oral, qDay Dextrose 5%/Sod Chloride 0.45%/10mEq per L Potassium Chloride 1,000 mL, 1000 mL, Intravenous Dilaudid, 1 mg= 1 mL, IV Push, q2h, PRN DuoNeb, 3 mL, Inhalation, q4hRT, PRN DuoNeb, 3 mL, Inhalation, q2hRT, PRN furosemide 40 mg oral tablet, 40 mg= 1 tab(s), Oral, Every other day Heparin 10,000 units/mL Heparin for IV 25,000 unit(s) [18 unit(s)/kg/hr] + Dextrose 5% Premix Diluent 250 mL Heparin HBW Bolus 5000 units/mL, 5411 unit(s)= 1.08 mL, 70 unit(s)/kg, IV Push, q6h, PRN Heparin HBW Bolus 5000 units/mL, 3092 unit(s)= 0.62 mL, 40 unit(s)/kg, IV Push, q6h, PRN lansoprazole 30 mg oral delayed release capsule, 30 mg= 1 cap(s), Oral, qDay Levaquin, 500 mg= 100 mL, IV Piggyback, qDay Lipitor, 40 mg= 1 tab(s), Oral, qDay morphine, 2 mg= 1 mL, IV Push, q4h, PRN Narcan, 0.4 mg= 1 mL, IV Push, AsDirected, PRN Nicoderm C-Q 7 mg/24 hr transdermal film, extended release, 7 mg= 1 patch(es), Transdermal, q24h nicotine (Nicoderm Patch REMOVAL), 1 EA, Miscellaneous, q24h Tillson 325- 5 mg oral tablet, 1 tab(s), Oral, q4h, PRN Plavix, 75 mg= 1 tab(s), Oral, qDay Protonix, 40 mg= 1 tab(s), Oral, qDayAC Tylenol, 650 mg= 2 supp, Rectal, q4h, PRN Tylenol, 650 mg= 2 tab(s), Oral, q4h, PRN Tylenol, 650 mg= 2 tab(s), Oral, q4h, PRN Vasotec, 1.25 mg= 1 mL, IV Push, q6h, PRN Zofran, 4 mg= 2 mL, IV Push, q6h, PRN Zofran ODT, 4 mg= 1 tab(s), Oral, q6h, PRN Allergies penicillin Family History Family history is unknown Social History Smoking Status - 09/20/2015 Current every day smoker Alcohol Use: Past., 01/02/2019 Substance Abuse Use: Never., 01/02/2019 Tobacco Tobacco Use: 10 or more cigarettes (1/2 pack or more)/day in last 30 days. Type: Cigarettes., 01/02/2019 [1] CT Angiography Neck w/ Contrast; HENRI ENRIQUEZ MD 05/21/2022 19:41 EDT [2] CT Angiography Head w/ Contrast; HENRI ENRIQUEZ MD 05/21/2022 20:15 EDT [3] MRI Brain w/o Contrast; HENRI ENRIQUEZ MD 05/22/2022 15:28 EDT [4] CT Angiography Upper Extremity Right; HENRI ENRIQUEZ MD 05/22/2022 15:57 EDT Digitally Signed by MANISHA GRANDE on 05/27/2022 03:02 PM [facility] [id number] Note ORIGINAL EXAMINATION: CT OF THE CHEST WITHOUT VNHMZRAF54/28/2022 12:03 pm TECHNIQUE: CT of the chest was performed without the administration of intravenous contrast. Multiplanar reformatted images are provided for review. Automated exposure control, iterative reconstruction, and/or weight based adjustment of the mA/kV was utilized to reduce the radiation dose to as low as reasonably achievable. COMPARISON: Chest x-ray May 23, 2022 HISTORY: ORDERING SYSTEM PROVIDED HISTORY: Reason for Exam: ABNORMAL CHEST X-RAY, SOB Hypoxia, f/u CXR findings FINDINGS: The visualized portions of the thyroid gland are normal. There is stent graft of the right common carotid artery at its origin. Pulmonary artery appears prominent in size. No discrete lymphadenopathy. There is aortic and coronary artery atherosclerosis. Heart is normal in size without pericardial effusion. There is a small to moderate hiatal hernia. Esophagus is nondilated. Limited images through the upper abdomen demonstrate no overt abnormalities. There is trace left pleural effusion. There is diffuse multifocal nodular consolidation throughout the left upper lobe and left lower lobe. This is demonstrated to a lesser extent within the right upper lobe and medial right lower lobe. There are emphysematous changes of the lungs. There is bronchiectasis and mild areas of mucous plugging in the lower lobes. There is multilevel degenerative change of the spine. IMPRESSION: Multifocal nodular consolidation, bilaterally although most prominent within the left upper lobe and left lower lobe, most compatible with pneumonia. Short-term follow-up CT in 3 months is recommended. Coronary artery disease. Emphysema with bronchiectasis and lower lobe mucous plugging. Interpreted by: Lazaro Edgar DO Preliminary Report By: Lazaro Edgar DO Electronically signed By Lazaro Edgar DO Dictated Date: 05/27/2022 2:17:55 PM Prelim Date: 05/27/2022 2:23:12 PM Sign Date: 05/27/2022 2:23:12 PM Ordering Provider: [facility]10-28-2022 Vascular surgery Progress note Date of Service 05/27/2022 Subjective Patient is doing well. Neurologically intact. Much improved perfusion of the right hand. No hematoma. It is improved Objective Vitals and Measurements T: 36.9 C (Oral) TMIN: 36.19 C TMAX: 36.9 C (Oral) HR: 96(Monitored) RR: 20 BP: 135/97 BP: 80/62(Line) SpO2: 92% Intake and Output 7AM Yesterday to 7AM Today Intake and Output (Last 24 hours) Intake Oral Intake 1440.00 Administration Information 2875.01 Output Urinary Catheter Output: 2100.00 Intra-Op EBL 50.00 Stool Count 0.00 Emesis Count 0.00 Total Summary Total Intake 4315.01 Total Output 2150.00 Fluid Balance 2165.01 Physical Exam She is awake alert oriented No apparent distress Afebrile vital signs stable Radial pulse No hematoma in the neck Improved perfusion into the right hand and fingers Weight Dosing Weight: 77.3 kg (05/22/22) Medications Medications (24) Active Scheduled: (8) aspirin 81 mg Chewable 81 mg 1 tab(s), Oral, qDay atorvastatin 40 mg tablet 40 mg 1 tab(s), Oral, qDay clopidogrel 75 mg Tablet 75 mg 1 tab(s), Oral, qDay heparin 10,000 unit(s) 1 mL, Miscellaneous, PREOP pharm levofloxacin 500 mg 100 mL, IV Piggyback, qDay Nicoderm patch REMOVAL 1 EA, Miscellaneous, q24h nicotine 7 mg/24 hr ER patch 7 mg 1 patch(es), Transdermal, q24h pantoprazole 40 mg EC tablet 40 mg 1 tab(s), Oral, qDayAC Continuous: (2) D5/0.45%NACL + KCL 10 mEq/L 1,000 mL 1,000 mL, Intravenous, 100 mL/hr heparin 25,000 unit(s) [18 unit(s)/kg/hr] + Dextrose 5% Premix Diluent 250 mL 250 mL, Intravenous, 13.91 mL/hr PRN: (14) acetaminophen 325 mg Suppository 650 mg 2 supp, Rectal, q4h acetaminophen 325 mg Tablet 650 mg 2 tab(s), Oral, q4h acetaminophen 325 mg Tablet 650 mg 2 tab(s), Oral, q4h acetaminophen-HYDROcodone 325-5 mg tablet 1 tab(s), Oral, q4h albuterol - ipratropium 2.5 mg-0.5 mg/3 mL Inhal Eli UD 3 mL, Inhalation, q4hRT albuterol - ipratropium 2.5 mg-0.5 mg/3 mL Inhal Eli UD 3 mL, Inhalation, q2hRT enalaprilat 1.25 mg/mL (2 mL) vial 1.25 mg 1 mL, IV Push, q6h heparin 5,000 units/mL (1 mL) vial 5,411 unit(s) 1.08 mL, IV Push, q6h heparin 5,000 units/mL (1 mL) vial 3,092 unit(s) 0.62 mL, IV Push, q6h hydromorphone 1 mg/mL (1mL) INJ 1 mg 1 mL, IV Push, q2h morphine 2 mg/mL 1 mL syringe 2 mg 1 mL, IV Push, q4h naloxone 0.4 mg/mL (1mL) vial 0.4 mg 1 mL, IV Push, AsDirected ondansetron 2 mg/ 1 mL 2 mL INJ 4 mg 2 mL, IV Push, q6h ondansetron 4 mg DIS tablet 4 mg 1 tab(s), Oral, q6h Lab Results 05/27 02:35 WBC: 10.2 Hgb: 9.9 L Hct: 30.8 L Platelet: 405 Neutrophil %: 81.8 H Glucose Level: 167 H Sodium Level: 139 Potassium Level: 3.9 BUN: 7.0 L Creatinine Lvl (s): 0.62 05/26 04:23 WBC: 9.2 Hgb: 11.0 L Hct: 34.3 Platelet: 384 Neutrophil %: 64.6 Glucose Level: 94 Sodium Level: 141 Potassium Level: 3.7 BUN: 8.0 Creatinine Lvl (s): 0.68 EKG Electrocardiogram (EKG) - Ordered -- 05/26/22 13:37:00 EDT, PRN order, STAT with Chest Pain, Notify surgeon Assessment/Plan Acute left-sided weakness 1. Innominate Artery - Appears secondary to a right innominate lesion. Status post stenting. Much improved perfusion now also through the right upper extremity. She had embolized to the right fingersas well besides a stroke. She needs to be on Plavix from a vascular standpoint. We will plan on seeing her back in the office in 1 month. Orders: acetaminophen, Start: 05/26/22 13:37:00 EDT, Dose = 650 mg, = 2 tab(s), Oral, q4h, PRN, Pain, scale1-3, 0, 05/26/22 13:37:00 EDT acetaminophen, Start: 05/26/22 13:37:00 EDT, Dose = 650 mg, = 2 tab(s), Oral, q4h, PRN, Temperaturegreater than 38.6 degrees C, 05/26/22 13:37:00 EDT acetaminophen-hydrocodone, Start: 05/26/22 13:37:00 EDT, Dose = 1 tab(s), Tab, Oral, q4h, PRN, Pain, scale 4-6, 05/26/22 13:37:00 EDT clopidogrel, Start: 05/27/22 9:00:00 EDT, Dose = 75 mg, = 1 tab(s), Oral, qDay, 05/27/22 9:00:00 EDT Dextrose 5%/nacl/kcl 1,000 mL, Start: 05/26/22 13:37:00 EDT, Rate: 100 mL/hr, 05/26/22 13:37:00 EDT enalapril, Start: 05/26/22 13:37:00 EDT, Dose = 1.25 mg, = 1 mL, IV Push, q6h, PRN, Systolic BP: See order comments, 05/26/22 13:37:00 EDT HYDROmorphone, Start: 05/26/22 13:37:00 EDT, Dose = 1 mg, = 1 mL, IV Push, q2h, PRN, Pain, scale 7-10, 0, 05/26/22 13:37:00 EDT ondansetron, Start: 05/26/22 13:37:00 EDT, Dose = 4 mg, = 1 tab(s), Oral, q6h, PRN, Nausea/Vomiting, 0, 05/26/22 13:37:00 EDT ondansetron, Start: 05/26/22 13:37:00 EDT, Dose = 4 mg, = 2 mL, IV Push, q6h, PRN, Nausea, 05/26/2213:37:00 EDT Arterial Line Insertion/Care Bedrest Communication Order (continuous) Communication Order (continuous) Diet Order Electrocardiogram Elevate Head of Bed Elevate Head of Bed Intake and Output IV Catheter Insertion/Care Bandar Tapia drain Neurological Check Notify Provider Notify Provider Notify Provider Notify Provider Oxygen Administration Pulse Oximetry (ICU) Sequential Compression Device Application Sequential Compression Device Application Titrate / Wean Oxygen Transfer/Change in Level of Care Vital Signs Call Parameters Wound Care Digitally Signed by LUIS VERA MD on 05/27/2022 12:12 PM [facility] [id number] Note ORIGINAL EXAMINATION: CT OF THE CHEST WITHOUT SHAYFGRN89/28/2022 12:03 pm TECHNIQUE: CT of the chest was performed without the administration of intravenous contrast. Multiplanar reformatted images are provided for review. Automated exposure control, iterative reconstruction, and/or weight based adjustment of the mA/kV was utilized to reduce the radiation dose to as low as reasonably achievable. COMPARISON: Chest x-ray May 23, 2022 HISTORY: ORDERING SYSTEM PROVIDED HISTORY: Reason for Exam: ABNORMAL CHEST X-RAY, SOB Hypoxia, f/u CXR findings FINDINGS: The visualized portions of the thyroid gland are normal. There is stent graft of the right common carotid artery at its origin. Pulmonary artery appears prominent in size. No discrete lymphadenopathy. There is aortic and coronary artery atherosclerosis. Heart is normal in size without pericardial effusion. There is a small to moderate hiatal hernia. Esophagus is nondilated. Limited images through the upper abdomen demonstrate no overt abnormalities. There is trace left pleural effusion. There is diffuse multifocal nodular consolidation throughout the left upper lobe and left lower lobe. This is demonstrated to a lesser extent within the right upper lobe and medial right lower lobe. There are emphysematous changes of the lungs. There is bronchiectasis and mild areas of mucous plugging in the lower lobes. There is multilevel degenerative change of the spine. IMPRESSION: Multifocal nodular consolidation, bilaterally although most prominent within the left upper lobe and left lower lobe, most compatible with pneumonia. Short-term follow-up CT in 3 months is recommended. Coronary artery disease. Emphysema with bronchiectasis and lower lobe mucous plugging. Interpreted by: Lazaro Edgar DO Preliminary Report By: Lazaro Edgar DO Electronically signed By Lazaro Edgar DO Dictated Date: 05/27/2022 2:17:55 PM Prelim Date: 05/27/2022 2:23:12 PM Sign Date: 05/27/2022 2:23:12 PM Ordering Provider: [facility]10-28-2022 Hematology Consult note Date of Service 05/27/2022 Reason for Consultation Arterial thrombus This is a split/shared visit between Dr. Ferrer and myself History of Present Illness Pt is a 51 year old female with PMHx: tobacco use. Pt presented to the hospital on 05/22 with c/o dysarthria, left sided facial/arm weakness, right hand pain, cough and fever. CT head and MRI brain showed right parietal and posterior temporal lobe acute CVA. CTA head/neck showed left subclavian occlusion, left carotid stenosis 50-69%. Pt also had doppler of the RUE and showed severe peripheral arterial disease with greater than 75% stenosis in the right innominate. Neurology and vascular surgery were consulted. IV heparin was started. Vascular surgery performed endarterectomy/cutdown on the carotid artery and artery stenting yesterday. CXR also showed PNA, pt on Levaquin. Today pt is resting in bed. She reports a week ago she stared having right hand burning. She initially thought she got a chemical on them from work and went to the ER on . On Monday her hand pain was worse and she was told she started slurring her words and had left arm weakness. She reports those symptoms have improved some. She states she has no previous history of blood clots, cancer, autoimmune disorders. Her mother had history of 2 CVAs and Lupus. Pt reports smoking history for almost all her life, she states she currently at 1 pack/day. She denies alcohol use and substance use. Will see what rest of hypercoag workup shows but tobacco use can be possible cause. Lab Results Test Name Test Result Date/TimeWBC 10.2 10^3/mcL 05/27/2022 02:35 EDT Hgb 9.9 G/dL (Low) 05/27/2022 02:35 EDT Platelet 405 10^3/mcL 05/27/2022 02:35 EDT Review of Systems 14 system review is negative except as charted in the HPI Physical Exam Vitals and Measurements T: 36.9 C (Oral) TMIN: 36.19 C TMAX: 36.9 C (Oral) HR: 96(Monitored) RR: 20 BP: 135/97 BP: 80/62(Line) SpO2: 92% General Appearance: no acute distress Eyes: PERRLA Nose: External nose normal Ears: External ears normal Throat: Trachea midline Neck: no mass Lymph nodes: Not palpable Cardiac: RRR S1 and S2 no murmur Lungs: clear bilaterally Abdomen: soft non-tender BSx4 Neurological: A&Ox3 follows commands Skin: warm dry and intact Musculoskeletal: strength intact Psychiatric: appropriate mood and affect Weight Dosing Weight: 77.3 kg (05/22/22) Lab Results 05/27 02:35 WBC: 10.2 Hgb: 9.9 L Hct: 30.8 L Platelet: 405 Neutrophil %: 81.8 H Glucose Level: 167 H Sodium Level: 139 Potassium Level: 3.9 BUN: 7.0 L Creatinine Lvl (s): 0.62 05/26 04:23 WBC: 9.2 Hgb: 11.0 L Hct: 34.3 Platelet: 384 Neutrophil %: 64.6 Glucose Level: 94 Sodium Level: 141 Potassium Level: 3.7 BUN: 8.0 Creatinine Lvl (s): 0.68 Imaging Results and Diagnostics (05/21/2022 19:[address] Angiography Neck w/ Contrast) IMPRESSION: Acute right MCA territory infarct in the right parietal and posterior temporal lobes. Lack of contrast opacified vessels within the infarcted territory. No territorial large vessel occlusion is identified, with exception to a small right MCA M4 branch over the right parietal convexity. Communicated intracranial results to Dr. Bradley Brasher at 8:32 p.m. on 05/21/2022. Moderate, 50-69%, stenosis of the proximal left internal carotid artery from predominantly noncalcified plaque. Mild, less than 50%, narrowing of the proximal right internal carotid artery from predominantly noncalcified plaque. Short-segment occlusion of the left subclavian artery proximal to the vertebral artery origin. Left greater than right upper lobe patchy consolidations with bronchial wall thickening concerning for infection or alternatively aspiration given presence of secretions/debris in the distal trachea and fluid in the midesophagus although correlate clinically and follow-up to resolution. [1] (05/21/2022 20:[address] Angiography Head w/ Contrast) IMPRESSION: Acute right MCA territory infarct in the right parietal and posterior temporal lobes. Lack of contrast opacified vessels within the infarcted territory. No territorial large vessel occlusion is identified, with exception to a small right MCA M4 branch over the right parietal convexity. Communicated intracranial results to Dr. Bradley Brasher at 8:32 p.m. on 05/21/2022. Moderate, 50-69%, stenosis of the proximal left internal carotid artery from predominantly noncalcified plaque. Mild, less than 50%, narrowing of the proximal right internal carotid artery from predominantly noncalcified plaque. Short-segment occlusion of the left subclavian artery proximal to the vertebral artery origin. Left greater than right upper lobe patchy consolidations with bronchial wall thickening concerning for infection or alternatively aspiration given presence of secretions/debris in the distal trachea and fluid in the midesophagus although correlate clinically and follow-up to resolution. [2] (05/21/2022 19:[address] Head or Brain w/o Contrast) IMPRESSION: Loss of the diop-white matter differentiation of the right parietal and posterior temporal lobes better visualized on same day CT angiography of the head given significant motion artifact on this exam. Please see report for details and with critical results communication notification. Mucosal thickening as well as aerated secretions in the paranasal sinuses which may be seen with acute sinusitis. (05/22/2022 15:28 EDT MRI Brain w/o Contrast) IMPRESSION: Acute infarcts in the right MCA territory involving predominantly the right parietal and temporal lobe although also scattered in the right frontal lobe and lateral occipital lobe. Additional small infarcts in the bilateral cerebellar hemispheres posteriorly. [3] (05/22/2022 15:[address] Angiography Upper Extremity Right) IMPRESSION: No large vessel occlusion or hemodynamically significant stenosis of the right upper extremity. [4] Assessment/Plan Acute left-sided weakness CVA, neurology and vascular surgery following, pt right innominate stenosis and emboli to the righthand, vascular performed endarterectomy/cutdown on the carotid artery and artery stenting yesterday PNA, pt on Levaquin Hypercoags ordered, Cardiolipin IgM 12.5, borderline, will see what rest of hypercoag workup shows Pt reported long history of tobacco use which is a likely cause of her arterial thrombus Please see Dr. Ferrer's addendum for further recommendations Problem List/Past Medical History Ongoing Seasonal allergies Historical No qualifying data Procedure/Surgical History Abdominal hysterectomy Medications aspirin, 81 mg= 1 tab(s), Oral, qDay Dextrose 5%/Sod Chloride 0.45%/10mEq per L Potassium Chloride 1,000 mL, 1000 mL, Intravenous Dilaudid, 1 mg= 1 mL, IV Push, q2h, PRN DuoNeb, 3 mL, Inhalation, q4hRT, PRN DuoNeb, 3 mL, Inhalation, q2hRT, PRN furosemide 40 mg oral tablet, 40 mg= 1 tab(s), Oral, Every other day Heparin 10,000 units/mL Heparin for IV 25,000 unit(s) [18 unit(s)/kg/hr] + Dextrose 5% Premix Diluent 250 mL Heparin HBW Bolus 5000 units/mL, 5411 unit(s)= 1.08 mL, 70 unit(s)/kg, IV Push, q6h, PRN Heparin HBW Bolus 5000 units/mL, 3092 unit(s)= 0.62 mL, 40 unit(s)/kg, IV Push, q6h, PRN lansoprazole 30 mg oral delayed release capsule, 30 mg= 1 cap(s), Oral, qDay Levaquin, 500 mg= 100 mL, IV Piggyback, qDay Lipitor, 40 mg= 1 tab(s), Oral, qDay morphine, 2 mg= 1 mL, IV Push, q4h, PRN Narcan, 0.4 mg= 1 mL, IV Push, AsDirected, PRN Nicoderm C-Q 7 mg/24 hr transdermal film, extended release, 7 mg= 1 patch(es), Transdermal, q24h nicotine (Nicoderm Patch REMOVAL), 1 EA, Miscellaneous, q24h Tillson 325- 5 mg oral tablet, 1 tab(s), Oral, q4h, PRN Plavix, 75 mg= 1 tab(s), Oral, qDay Protonix, 40 mg= 1 tab(s), Oral, qDayAC Tylenol, 650 mg= 2 supp, Rectal, q4h, PRN Tylenol, 650 mg= 2 tab(s), Oral, q4h, PRN Tylenol, 650 mg= 2 tab(s), Oral, q4h, PRN Vasotec, 1.25 mg= 1 mL, IV Push, q6h, PRN Zofran, 4 mg= 2 mL, IV Push, q6h, PRN Zofran ODT, 4 mg= 1 tab(s), Oral, q6h, PRN Allergies penicillin Family History Family history is unknown Social History Smoking Status - 09/20/2015 Current every day smoker Alcohol Use: Past., 01/02/2019 Substance Abuse Use: Never., 01/02/2019 Tobacco Tobacco Use: 10 or more cigarettes (1/2 pack or more)/day in last 30 days. Type: Cigarettes., 01/02/2019 [1] CT Angiography Neck w/ Contrast; HENRI ENRIQUEZ MD 05/21/2022 19:41 EDT [2] CT Angiography Head w/ Contrast; HENRI ENRIQUEZ MD 05/21/2022 20:15 EDT [3] MRI Brain w/o Contrast; HENRI ENRIQUEZ MD 05/22/2022 15:28 EDT [4] CT Angiography Upper Extremity Right; HENRI ENRIQUEZ MD 05/22/2022 15:57 EDT Digitally Signed by MANISHA GRANDE on 05/27/2022 03:02 PM [facility] [id number] Anesthesiology Consult note Patient: BRITTANY ROBERTSON Age: 51 years Sex: Female : 1970 Associated Diagnoses: None Author: MARIBETH MACARIO MD Postoperative Information Post Operative Info: Post op day: Post Anesthesia Care Unit. Patient location: PACU. Assessment Postanesthesia assessment Vitals: Vital signs from flowsheet : Vital Signs 05/26/2022 18:00 EDT Heart Rate Monitored 82 bpm Systolic Blood Pressure NBP 149 mmHg HI Diastolic Blood Pressure NBP 84 mmHg Mean Arterial Pressure (NBP) 99 mmHg Reason For Taking VItal Signs Routine 05/26/2022 17:10 EDT Heart Rate Monitored 82 bpm Respiratory Rate 16 br/min Systolic Blood Pressure NBP 139 mmHg Diastolic Blood Pressure NBP 79 mmHg Mean Arterial Pressure (NBP) 95 mmHg Reason For Taking VItal Signs Routine 05/26/2022 16:15 EDT Temperature Oral 36.7 DegC Heart Rate Monitored 90 bpm Respiratory Rate 16 br/min Reason For Taking VItal Signs Routine 05/26/2022 15:47 EDT Heart Rate Monitored 79 bpm Systolic Blood Pressure NBP 146 mmHg HI Diastolic Blood Pressure NBP 75 mmHg Mean Arterial Pressure (NBP) 95 mmHg Reason For Taking VItal Signs Routine 05/26/2022 15:00 EDT Heart Rate Monitored 84 bpm Systolic Blood Pressure NBP 160 mmHg >HHI Diastolic Blood Pressure NBP 78 mmHg Mean Arterial Pressure (NBP) 99 mmHg 05/26/2022 14:59 EDT Heart Rate Monitored 86 bpm Respiratory Rate 17 br/min Systolic Blood Pressure Invasive In Error mmHg (In Error) Diastolic Blood Pressure Invasive In Error mmHg (In Error) Mean Arterial Pressure (Line) In Error mmHg (In Error) 05/26/2022 14:45 EDT Heart Rate Monitored 84 bpm Systolic Blood Pressure NBP 159 mmHg HI Diastolic Blood Pressure NBP 67 mmHg Mean Arterial Pressure (NBP) 92 mmHg 05/26/2022 14:30 EDT Heart Rate Monitored 83 bpm Systolic Blood Pressure NBP 159 mmHg HI Diastolic Blood Pressure NBP 69 mmHg Mean Arterial Pressure (NBP) 92 mmHg 05/26/2022 14:29 EDT Heart Rate Monitored 81 bpm Respiratory Rate 17 br/min 05/26/2022 14:15 EDT Systolic Blood Pressure NBP 150 mmHg HI Diastolic Blood Pressure NBP 75 mmHg Mean Arterial Pressure (NBP) 98 mmHg 05/26/2022 14:00 EDT Heart Rate Monitored 83 bpm Systolic Blood Pressure NBP 162 mmHg >HHI Diastolic Blood Pressure NBP 78 mmHg Mean Arterial Pressure (NBP) 102 mmHg 05/26/2022 13:45 EDT Heart Rate Monitored 88 bpm Systolic Blood Pressure NBP 162 mmHg >HHI Diastolic Blood Pressure NBP 82 mmHg Mean Arterial Pressure (NBP) 104 mmHg 05/26/2022 13:34 EDT Heart Rate Monitored 90 bpm Systolic Blood Pressure NBP 135 mmHg Diastolic Blood Pressure NBP 70 mmHg Mean Arterial Pressure (NBP) 88 mmHg Systolic Blood Pressure Invasive 80 mmHg LOW Diastolic Blood Pressure Invasive 62 mmHg Mean Arterial Pressure (Line) 70 mmHg 05/26/2022 13:30 EDT Temperature Oral 36.6 DegC Heart Rate Monitored 92 bpm Respiratory Rate 19 br/min Systolic Blood Pressure Invasive In Error mmHg (In Error) Diastolic Blood Pressure Invasive In Error mmHg (In Error) Mean Arterial Pressure (Line) In Error mmHg (In Error) Reason For Taking VItal Signs Procedure post-care 05/26/2022 13:20 EDT Heart Rate Monitored 95 bpm bpm 05/26/2022 13:15 EDT Heart Rate Monitored 85 bpm bpm 05/26/2022 13:10 EDT Temperature (Route Not Specified) 36.29 DegC DegC Heart Rate Monitored 89 bpm bpm 05/26/2022 13:05 EDT Temperature (Route Not Specified) 36.29 DegC DegC Heart Rate Monitored 87 bpm bpm 05/26/2022 13:00 EDT Temperature (Route Not Specified) 36.28 DegC DegC Heart Rate Monitored 86 bpm bpm 05/26/2022 12:55 EDT Temperature (Route Not Specified) 36.28 DegC DegC Heart Rate Monitored 86 bpm bpm 05/26/2022 12:50 EDT Temperature (Route Not Specified) 36.3 DegC DegC Heart Rate Monitored 81 bpm bpm 05/26/2022 12:45 EDT Temperature (Route Not Specified) 36.21 DegC DegC Heart Rate Monitored 76 bpm bpm 05/26/2022 12:40 EDT Temperature (Route Not Specified) 36.19 DegC DegC Heart Rate Monitored 76 bpm bpm 05/26/2022 12:35 EDT Temperature (Route Not Specified) 36.2 DegC DegC Heart Rate Monitored 74 bpm bpm 05/26/2022 12:30 EDT Temperature (Route Not Specified) 36.24 DegC DegC Heart Rate Monitored 74 bpm bpm 05/26/2022 12:25 EDT Temperature (Route Not Specified) 36.24 DegC DegC Heart Rate Monitored 77 bpm bpm 05/26/2022 12:20 EDT Temperature (Route Not Specified) 36.25 DegC DegC Heart Rate Monitored 74 bpm bpm 05/26/2022 12:15 EDT Temperature (Route Not Specified) 36.25 DegC DegC Heart Rate Monitored 72 bpm bpm 05/26/2022 12:10 EDT Temperature (Route Not Specified) 36.26 DegC DegC Heart Rate Monitored 74 bpm bpm 05/26/2022 12:05 EDT Temperature (Route Not Specified) 36.31 DegC DegC Heart Rate Monitored 75 bpm bpm 05/26/2022 12:00 EDT Temperature (Route Not Specified) 36.39 DegC DegC Heart Rate Monitored 79 bpm bpm 05/26/2022 11:55 EDT Temperature (Route Not Specified) 36.51 DegC DegC Heart Rate Monitored 91 bpm bpm 05/26/2022 11:50 EDT Temperature (Route Not Specified) 36.66 DegC DegC Heart Rate Monitored 88 bpm bpm 05/26/2022 11:45 EDT Temperature (Route Not Specified) 36.73 DegC DegC Heart Rate Monitored 89 bpm bpm 05/26/2022 11:40 EDT Temperature (Route Not Specified) 36.81 DegC DegC Heart Rate Monitored 92 bpm bpm 05/26/2022 11:35 EDT Heart Rate Monitored 94 bpm bpm 05/26/2022 11:30 EDT Heart Rate Monitored 89 bpm bpm Systolic Blood Pressure NBP 132 mmHg mmHg Diastolic Blood Pressure NBP 67 mmHg mmHg 05/26/2022 11:26 EDT Systolic Blood Pressure NBP 95 mmHg mmHg Diastolic Blood Pressure NBP 62 mmHg mmHg 05/26/2022 11:25 EDT Heart Rate Monitored 88 bpm bpm 05/26/2022 11:24 EDT Systolic Blood Pressure NBP 145 mmHg mmHg Diastolic Blood Pressure NBP 69 mmHg mmHg 05/26/2022 11:20 EDT Heart Rate Monitored 92 bpm bpm 05/26/2022 10:50 EDT Temperature Oral 36.7 DegC Heart Rate Monitored 90 bpm Respiratory Rate 18 br/min Systolic Blood Pressure 132 mmHg Diastolic Blood Pressure 72 mmHg 05/26/2022 6:25 EDT Respiratory Rate 20 br/min 05/26/2022 6:21 EDT Temperature Oral 37.1 DegC Heart Rate Monitored 93 bpm Respiratory Rate 20 br/min Systolic Blood Pressure 157 mmHg HI Diastolic Blood Pressure 71 mmHg Mean Arterial Pressure 100 mmHg Reason For Taking VItal Signs Routine 05/26/2022 3:09 EDT Temperature Oral 36.8 DegC Peripheral Pulse Rate 92 bpm Respiratory Rate 20 br/min Systolic Blood Pressure 133 mmHg Diastolic Blood Pressure 66 mmHg Mean Arterial Pressure 88 mmHg Reason For Taking VItal Signs Routine 05/25/2022 23:32 EDT Temperature Oral 37.2 DegC Peripheral Pulse Rate 95 bpm Respiratory Rate 20 br/min Systolic Blood Pressure 120 mmHg Diastolic Blood Pressure 69 mmHg Mean Arterial Pressure 86 mmHg Reason For Taking VItal Signs Routine 05/25/2022 19:08 EDT Temperature Oral 36.7 DegC Apical Heart Rate 87 bpm Respiratory Rate 20 br/min Systolic Blood Pressure 150 mmHg HI Diastolic Blood Pressure 75 mmHg Mean Arterial Pressure 100 mmHg Reason For Taking VItal Signs Routine 05/25/2022 17:13 EDT Reason For Taking VItal Signs Routine 05/25/2022 13:35 EDT Reason For Taking VItal Signs NTG 3rd dose SL 05/25/2022 10:54 EDT Temperature Oral 36.4 DegC Apical Heart Rate 104 bpm HI Respiratory Rate 20 br/min Systolic Blood Pressure 129 mmHg Diastolic Blood Pressure 106 mmHg >HHI Reason For Taking VItal Signs Routine 05/25/2022 7:22 EDT Temperature Oral 36.9 DegC Apical Heart Rate 91 bpm Respiratory Rate 20 br/min Systolic Blood Pressure 125 mmHg Diastolic Blood Pressure 71 mmHg Mean Arterial Pressure 89 mmHg Reason For Taking VItal Signs Routine 05/25/2022 3:10 EDT Temperature Oral 36.7 DegC Apical Heart Rate 95 bpm Respiratory Rate 20 br/min Systolic Blood Pressure 159 mmHg HI Diastolic Blood Pressure 107 mmHg >HHI Reason For Taking VItal Signs Routine . Mental status: at preoperative baseline. Respiratory function: respirations are non-labored, Stable. Respiratory support: none. CV function: Stable. Cardiovascular support: none. Pain: Satisfactory. Nausea status: Satisfactory. Postoperative hydration status: within normal limits. Notes: Patient is sufficiently recovered from anesthesia to participate in the evaluation. No follow-up care needed. No complications post-anesthesia.. Digitally Signed by MARIBETH MACARIO MD on 05/26/2022 06:28 PM [facility] [id number] Note Date of Service 05/26/2022 Chief Complaint left sided weakness Subjective Patient is 51-year-old female with past medical history significant for tobacco abuse who initiallypresented to [facility] with chief complaint of dysarthria, left-sided facial/arm weakness, right hand pain, cough, fever. CT scan head was consistent with right parietal and posterior temporal lobeacute CVA. CTA /neck consistent with left subclavian occlusion, left carotid stenosis 50-69%. Chestx- ray consistent with bilateral consolidation. Patient was transferred to [place] [facility] for further management. Neurology and vascular surgery on consultation. Due to severe right hand pain and initial cyanosis, right upper extremity arterial Doppler was performed that showed severe peripheral arterial disease with greater than 75% stenosis in the right innominate. patient was started on heparin by weight and aspirin. Neurology recommending hypercoagulable work-up which was sent. Hypercoagulable work-up notable for mildly elevated anticardiolipin IgM. Vascular Surgery re-evaluated pt on 05/25. 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 Pt monitored in CVSI postop. Patient seen and examined No acute overnight events No new acute Neurdeficits this AM Discussed plan of care answered all questions patient endorsing understanding Objective Vitals and Measurements T: 36.7 C (Oral) TMIN: 36.19 C TMAX: 37.2 C (Oral) HR: 90(Monitored) RR: 16 BP: 146/75 BP: 80/62(Line) SpO2: 91% Intake and Output 7AM Yesterday to 7AM Today Intake and Output (Last 24 hours) Intake Administration Information 1224.35 Output Intra-Op EBL 50.00 Stool Count 1.00 Urine Count 1.00 Emesis Count 0.00 Total Summary Total Intake 1224.35 Total Output 50.00 Fluid Balance 1174.35 Physical Exam Weight Dosing Weight: 77.3 kg (05/22/22) Medications Medications (26) Active Scheduled: (9) aspirin 81 mg Chewable 81 mg 1 tab(s), Oral, qDay atorvastatin 40 mg tablet 40 mg 1 tab(s), Oral, qDay clopidogrel 75 mg Tablet 75 mg 1 tab(s), Oral, qDay heparin 10,000 unit(s) 1 mL, Miscellaneous, PREOP pharm levofloxacin 500 mg 100 mL, IV Piggyback, qDay Nicoderm patch REMOVAL 1 EA, Miscellaneous, q24h nicotine 7 mg/24 hr ER patch 7 mg 1 patch(es), Transdermal, q24h pantoprazole 40 mg EC tablet 40 mg 1 tab(s), Oral, qDayAC vancomycin 1,250 mg 25 mL, IV Piggyback, q12hr Continuous: (3) D5/0.45%NACL + KCL 10 mEq/L 1,000 mL 1,000 mL, Intravenous, 100 mL/hr heparin 25,000 unit(s) [18 unit(s)/kg/hr] + Dextrose 5% Premix Diluent 250 mL 250 mL, Intravenous, 13.91 mL/hr PHENYLephrine 40 mg / 250 mL PMX 40 mg 40 mg 250 mL, Intravenous PRN: (14) acetaminophen 325 mg Suppository 650 mg 2 supp, Rectal, q4h acetaminophen 325 mg Tablet 650 mg 2 tab(s), Oral, q4h acetaminophen 325 mg Tablet 650 mg 2 tab(s), Oral, q4h acetaminophen-HYDROcodone 325-5 mg tablet 1 tab(s), Oral, q4h albuterol - ipratropium 2.5 mg-0.5 mg/3 mL Inhal Eli UD 3 mL, Inhalation, q4hRT albuterol - ipratropium 2.5 mg-0.5 mg/3 mL Inhal Eli UD 3 mL, Inhalation, q4hRT enalaprilat 1.25 mg/mL (2 mL) vial 1.25 mg 1 mL, IV Push, q6h heparin 5,000 units/mL (1 mL) vial 5,411 unit(s) 1.08 mL, IV Push, q6h heparin 5,000 units/mL (1 mL) vial 3,092 unit(s) 0.62 mL, IV Push, q6h hydromorphone 1 mg/mL (1mL) INJ 1 mg 1 mL, IV Push, q2h morphine 2 mg/mL 1 mL syringe 2 mg 1 mL, IV Push, q4h naloxone 0.4 mg/mL (1mL) vial 0.4 mg 1 mL, IV Push, AsDirected ondansetron 2 mg/ 1 mL 2 mL INJ 4 mg 2 mL, IV Push, q6h ondansetron 4 mg DIS tablet 4 mg 1 tab(s), Oral, q6h Lab Results 05/26 04:23 WBC: 9.2 Hgb: 11.0 L Hct: 34.3 Platelet: 384 Neutrophil %: 64.6 Glucose Level: 94 Sodium Level: 141 Potassium Level: 3.7 BUN: 8.0 Creatinine Lvl (s): 0.68 EKG Electrocardiogram (EKG) - Ordered -- 05/26/22 13:37:00 EDT, PRN order, STAT with Chest Pain, Notify surgeon Assessment/Plan Acute left-sided weakness Acute Embolic CVA Right upper extremity severe peripheral arterial disease Left-sided subclavian stenosis Bilateral carotid artery stenosis Community acquired pneumonia w/ Acute Hypoxic respiratory failure Elevated troponin Tobacco abuse Right innominate stenosis s/p Stent Plan Pt px w/ acute neurologic deficit likely 2/2 Right innominate stenosis with stroke and emboli to the right hand. VAscular Surgery and Neurology consulted. Pt underwent prev. stated Neuro w/up now s/pEndarterectomy/cutdown on the carotid artery and retrograde imaging, Innominate Art stenting (05/26) currently being monitored postop in CVSI Hypercoagulable work-up was sent and notable for mildly elevated anticardiolipin IgM. Given embolicnature of the stroke will have hematology evaluate with consideration of antiphospholipid syndrome Community acquired [id number] airspace disease on chest x-ray continue Levaquin. Patient on 4 L O2 nasal cannula wean as tolerated repeat CT Chest to evaluate for pleural effusion/ eval lung parenchyma Tobacco use- Counselled on cessation. Prescribed nicotine patches. PT eval-recommending home with 24-hour supervision home PT Orders: CT Thorax w/o Contrast Time Spent Greater than 35 minutes was spent reviewing chart, placing orders developing treatment plan with greater than 50% of time spent at bedside counseling/coordinating care Digitally Signed by ALEXEY BIRD MD on 05/26/2022 05:44 PM Digitally Signed by ALEXEY BIRD MD on 05/27/2022 07:11 AM Digitally Signed by ALEXEY BIRD MD on 05/27/2022 07:12 AM [facility] [id number] Note ORIGINAL Images acquired, not reported on this accession number. [facility] [id number] Note ORIGINAL Images acquired, not reported on this accession number.[facility] [place] 05-26-2022 Anesthesiology Consult note Patient: BRITTANY ROBERTSON Age: 51 years Sex: Female : 1970 Associated Diagnoses: None Author: MARIBETH MACARIO MD Preoperative Information Time of last food or liquid consumption: 05/25/2022 23:00:00 Anesthesia history Patient's history: negative. History of Present Illness The patient presents for preanesthesia evaluation with CVA. Review of Systems Ear/Nose/Mouth/Throat: Negative. Respiratory: Negative. Cardiovascular: denies chest pain, recent echo with normal LVEF. Gastrointestinal: Negative. Genitourinary: Negative. Endocrine: Negative. Musculoskeletal: Negative. Integumentary: Negative. Neurologic: stroke, right hand emboli. Health Status Allergies: Allergic Reactions (Selected) Severity Not Documented Penicillin- No reactions were documented., Allergies (1) ActiveReaction penicillinNone Documented Current medications: (Selected) Inpatient Medications Ordered DuoNeb: 3 mL, Inhalation, q4hRT, PRN: Shortness of breath or wheezing DuoNeb: 3 mL, Inhalation, q4hRT, PRN: Shortness of breath or wheezing Heparin 10,000 units/mL: 10,000 unit(s), 1 mL, mL/hr, Miscellaneous, PREOP pharm Heparin HBW Bolus 5000 units/mL: 3,092 unit(s), 0.62 mL, IV Push, q6h, PRN: Protocol, Weight Based Heparin Heparin HBW Bolus 5000 units/mL: 5,411 unit(s), 1.08 mL, IV Push, q6h, PRN: Protocol, Weight Based Heparin Heparin for IV 25,000 unit(s) [18 unit(s)/kg/hr] + Dextrose 5% Premix Diluent 250 mL: 13.91 mL/hr, Intravenous Levaquin: 500 mg, 100 mL, 100 mL/hr, IV Piggyback, qDay Lipitor: 40 mg, 1 tab(s), Oral, qDay Narcan: 0.4 mg, 1 mL, IV Push, AsDirected, PRN: Control symptoms Nicoderm C-Q 7 mg/24 hr transdermal film, extended release: 7 mg, 1 patch(es), Transdermal, q24h Tillson 325- 5 mg oral tablet: 1 tab(s), Oral, q4hr, PRN: Pain, scale 4-6 Protonix: 40 mg, 1 tab(s), Oral, qDayAC Tylenol: 650 mg, 2 supp, Rectal, q4h, PRN: Temperature greater than 38.5 degrees C Tylenol: 650 mg, 2 tab(s), Oral, q4h, PRN: Pain, scale 1-3 Tylenol: 650 mg, 2 tab(s), Oral, q4h, PRN: Temperature greater than 38.5 degrees C aspirin: 81 mg, 1 tab(s), Oral, qDay morphine: 2 mg, 1 mL, IV Push, q4h, PRN: Pain, scale 7-10 nicotine (Nicoderm Patch REMOVAL): 1 EA, Miscellaneous, q24h phenylephrine 40 mg: Infuse as directed for CVOR, Intravenous, Stop: 05/26/22 22:59:00 EDT Documented Medications Documented furosemide 40 mg oral tablet: 40 mg, 1 tab(s), Oral, Every other day, 90 tab(s), 0 Refill(s) lansoprazole 30 mg oral delayed release capsule: 30 mg, 1 cap(s), Oral, qDay, 30 cap(s), 0 Refill(s), Medications (19) Active Scheduled: (7) aspirin 81 mg Chewable 81 mg 1 tab(s), Oral, qDay atorvastatin 40 mg tablet 40 mg 1 tab(s), Oral, qDay heparin 10,000 unit(s) 1 mL, Miscellaneous, PREOP pharm levofloxacin 500 mg 100 mL, IV Piggyback, qDay Nicoderm patch REMOVAL 1 EA, Miscellaneous, q24h nicotine 7 mg/24 hr ER patch 7 mg 1 patch(es), Transdermal, q24h pantoprazole 40 mg EC tablet 40 mg 1 tab(s), Oral, qDayAC Continuous: (2) heparin 25,000 unit(s) [18 unit(s)/kg/hr] + Dextrose 5% Premix Diluent 250 mL 250 mL, Intravenous, 13.91 mL/hr PHENYLephrine 40 mg / 250 mL PMX 40 mg 40 mg 250 mL, Intravenous PRN: (10) acetaminophen 325 mg Suppository 650 mg 2 supp, Rectal, q4h acetaminophen 325 mg Tablet 650 mg 2 tab(s), Oral, q4h acetaminophen 325 mg Tablet 650 mg 2 tab(s), Oral, q4h acetaminophen-HYDROcodone 325-5 mg tablet 1 tab(s), Oral, q4hr albuterol - ipratropium 2.5 mg-0.5 mg/3 mL Inhal Eli UD 3 mL, Inhalation, q4hRT albuterol - ipratropium 2.5 mg-0.5 mg/3 mL Inhal Eli UD 3 mL, Inhalation, q4hRT heparin 5,000 units/mL (1 mL) vial 5,411 unit(s) 1.08 mL, IV Push, q6h heparin 5,000 units/mL (1 mL) vial 3,092 unit(s) 0.62 mL, IV Push, q6h morphine 2 mg/mL 1 mL syringe 2 mg 1 mL, IV Push, q4h naloxone 0.4 mg/mL (1mL) vial 0.4 mg 1 mL, IV Push, AsDirected Problem list: Medical Seasonal allergies / SNOMED CT [id number] / Confirmed, Active Problems (2) Seasonal allergies Tobacco use Histories Past Medical History: Active Seasonal allergies (145850604) Family History: History is unknown. Procedure history: Abdominal hysterectomy ([id number]). Comments: 04/28/2021 14:49 EROS Villafana partial Social History Social & Psychosocial Habits Alcohol 01/02/2019 Use: Past Substance Abuse 01/02/2019 Use: Never Tobacco 01/02/2019 Tobacco Use: 10 or more cigarettes (1/ Type: Cigarettes . Physical Examination Vital Signs(last 24 hrs) Last Charted Temp Oral36.7 DegC (MAY 26 10:50) Heart Rate [id number] bpm (MAY 26 10:50) Resp Rate 18 br/min (MAY 26 10:50) General: Alert and oriented. Airway: Normal temporomandibular joint mobility. Mallampati classification: II (soft palate, fauces, uvula visible). Head: Normocephalic. Dentition Evaluation: No teeth. Neck: Supple. Respiratory: Lungs are clear to auscultation. Neurologic: Alert. Review / Management Results review: Labs (Last four charted values) WBC 9.2(MAY 26)9.8(MAY 25)H 12.0(MAY 24)H 14.9(MAY 23) Hgb L 11.0(MAY 26)L 10.6(MAY 25)L 10.7(MAY 24)L 11.2(MAY 23) Hct 34.3(MAY 26)L 33.6(MAY 25)L 33.1(MAY 24)34.6(MAY 23) Plt 384(MAY 26)345(MAY 25)296(MAY 24)305(MAY 23) Na 141(MAY 26)139(MAY 25)138(MAY 24)136(APR 24) K 3.7(MAY 26)L 3.1(MAY 25)L 3.3(MAY 24)4.2(MAY 23) CO2 H 33(MAY 26)31(MAY 25)30(MAY 24)31(MAY 23) Cl 104(MAY 26)103(MAY 25)103(MAY 24)101(MAY 23) Cr 0.68(MAY 26)0.62(MAY 25)0.67(MAY 24)0.86(MAY 23) BUN 8.0(MAY 26)8.0(MAY 25)9.0(MAY 24)10.0(MAY 23) Glucose 94(MAY 26)98(MAY 25)87(MAY 24)86(MAY 23) Mg 1.8(MAY 26)1.7(MAY 25)1.7(MAY 24) Ca L 8.4(MAY 26)L 8.0(MAY 25)L 7.9(MAY 24)L 8.3(MAY 23) PTT H 80.1(MAY 26)H 71.1(MAY 25)H 65.8(MAY 24)H 66.8(MAY 24) , Lab results 05/26/2022 10:50 EDT Temperature Oral 36.7 DegC Heart Rate Monitored 90 bpm Respiratory Rate 18 br/min Systolic Blood Pressure 132 mmHg Diastolic Blood Pressure 72 mmHg Primary Pain Intensity 0 Primary Pain Nonverbal Response Nods No Pain Scale Type 0-10 Pain scale Oxygen Therapy Nasal cannula 0L-6L Oxygen Saturation 95 % Oxygen Flow Rate 5 05/26/2022 9:01 EDT Nail Bed Color [place] Capillary Refill < 2 seconds Dorsalis Pedis Pulse, Left 2+ Normal Dorsalis Pedis Pulse, Right 2+ Normal Radial Pulse, Left 2+ Normal Radial Pulse, Right 2+ Normal Edema Generalized None Right Hand Edema None Respirations Unlabored Respiratory Pattern Regular Breath Sounds Auscultated Anterior and posterior Cough Hacking Oxygen Therapy Nasal cannula 0L-6L Oxygen Flow Rate 5 Abdomen Description Non-distended Abdomen Palpation Tender, Soft Abdomen Tender All quadrants Passing Flatus Yes Bowel Movement Last Date 05/26/2022 Bowel Continence Continent Swallowing Disorder None Bowel Sounds All Quadrants Present Urinary Elimination Voiding, no difficulties Facial Movement Symmetric resting/crying All Extremity Description Normal for ethnicity Temperature All Extremities Warm Sensory Perception Ejvon No impairment Moisture Jevon Occasionally moist Activity Jevon Walks occasionally Mobility Jevon Slightly limited Nutrition Jevon Adequate Friction and Shear Jevon No apparent problem Jevon Score 19 Hospital Acquired Pressure Injury Risk None/minimal risk (score 19-23) Forearm Right 05/23/2022 20 gauge Peripheral IV Activity: Assessed Peripheral IV Dressing Condition: Clean, Dry, Intact Peripheral IV Dressing Activity: Transparent dressing Peripheral IV Line Status/Patency: Continuous infusion Peripheral IV Site Condition: No complications Peripheral IV Equipment: IV Pump Forearm Left 05/26/2022 20 gauge Peripheral IV Activity: Assessed Peripheral IV Dressing Condition: Clean, Dry, Intact Peripheral IV Dressing Activity: Transparent dressing Peripheral IV Site Condition: No complications Neurological Language Able to speak clearly Neurological Symptoms Patient denies Gait Steady Extremity Movement Equal Swallowing Difficulty None Characteristics of Communication Appropriate Characteristics of Speech Clear Facial Symmetry Symmetric Level of Consciousness Alert Aspiration Risk None KIMI Yes Left Pupil Description Regular, Round Right Pupil Description Regular, Round Left Pupil Reaction Brisk Right Pupil Reaction Brisk Pupil Size, Left 3 mm Pupil Size, Right 3 mm Left Upper Extremity Strength Moderate Right Upper Extremity Strength Weak Left Lower Extremity Strength Moderate Right Lower Extremity Strength Moderate Left Upper Extremity Sensation Intact Right Upper Extremity Sensation Intact Left Lower Extremity Sensation Intact Right Lower Extremity Sensation Intact CN V Facial Sensation Corneal reflex present CN VII Facial Expression and Symmetry Facial movement symmetrical CN IX, X Swallowing, Gag Reflex Swallowing present Hill Screen Daily History of Fall in Last 3 Months Hill No Presence of Secondary Diagnosis Hill Yes Use of Ambulatory Aid Hill None, bedrest, wheelchair, nurse IV/PRN Adapter Fall Risk Hill Yes Gait Weak or Impaired Fall Risk Hill Weak Mental Status Fall Risk Hill Oriented to own ability Hill Fall Risk Score 45 Participative in Fall Prevention Yes Violence Risk Confused No Violence Risk Irritable No Violence Risk Boisterous No Violence Risk Verbal Threats No Violence Risk Physical Threats No Violence Risk Attacking Objects No Violence Risk Predictor Score 0 Violence Risk Intervention None Violence Risk Current Interventions None Affect/Behavior Appropriate Orientation Oriented x 4 Ambulation Up with assistance Activity Status ADL Awake, Repositions self, Resting, Sleeping quietly with easy respirations, Up to bathroom Assistive Device Gait belt Standard Safety ID band on, Allergy Band on, Call device within reach, Bed in low position, Wheels locked, Upper/Half-Length side-rails up High Risk Safety Bed alert on, Non-Slip footwear, Room check performed Demonstrates Correct Call Light Use Yes Eating Difficulties None 05/26/2022 9:00 EDT levofloxacin 500 mg mg 05/26/2022 8:37 EDT Level of Consciousness NIH Stroke Scale Alert Response Month/Age NIH Stroke Scale Answers both correctly Open/Close Eyes NIH Stroke Scale Obeys both correctly Best Gaze NIH Stroke Scale Normal Visual Field Testing NIH Stroke Scale No visual field loss Facial Paresis NIH Stroke Scale Normal symmetrical movement Motor Function Left Arm NIH Stroke Scale Normal Motor Function Rt Arm NIH Stroke Scale Normal Motor Function Left Leg NIH Stroke Scale Normal Motor Function Rt Leg NIH Stroke Scale Normal Limb Ataxia NIH Stroke Scale No ataxia Sensory NIH Stroke Scale Normal Best Language NIH Stroke Scale No aphasia Dysarthria NIH Stroke Scale Normal articulation Extinction/Inattention NIH Stroke Scale Normal NIH Stroke Score 0 NIH Stroke Scale Form NIH Stroke Scale Form 05/26/2022 8:30 EDT Basic Command Following Intact (Unauth) Safety/Judgment Intact (Unauth) Oxygen Flow Rate 5 L/min (Unauth) Bed Mobility Supine to Sit Mod I (Unauth) Bed Mobility Sit to Supine Mod I (Unauth) Transfer Sit to Stand Mod I (Unauth) Transfer Stand to Sit Mod I (Unauth) Ambulation Distance 2 80 ft (Unauth) Ambulation Level Supervised (Unauth) Ambulation Distance 60 ft (Unauth) Ambulation Device Utilized None (Unauth) Weightbearing Maintained Yes (Unauth) Ambulation Quality Pt was able to amb into the halls this AM No device requiring cues for a wider SONALI and relaxation of the UE's to ease gt pattern Pt also encouraged to glance around thru head for obstacles She denies vision problems but always looks to the floor (Unauth) Gait Deviations Left Lower Extremity Narrow base of support (Unauth) Gait Deviations Right Lower Extremity Narrow base of support (Unauth) Orientation Assessment Oriented x 4 (Unauth) Worker's Comp Patient No (Unauth) PT Education Grid PT Education Grid (Unauth) PT Treatment Response Pt was able to maintain balance amb without an AD this AM Major complaint is thirst and hunger d/t NPO. WIll address steps next Tx to prepare for homegoing. (Unauth) PT Treatment Patient Response Possible surg today but nurse (Yang) OK ed activity this AM. Pt agreed (Unauth) Turning Over In Bed None (4) (Unauth) Sit Down/Stand Up From Chair with Arms None (4) (Unauth) Move From Back To Sit On Bedside None (4) (Unauth) Moving To And From Bed To Chair None (4) (Unauth) Need To Walk In Hospital Room A Little (3) (Unauth) Climbing 3-5 Steps With A Railing A Little (3) (Unauth) PT Initiate/Continue Treatment Yes (Unauth) Therapy Pain Intensity 0 (Unauth) Mobility/Balance Training Provided Yes (Unauth) Therapeutic Activities/Exercise Provided Yes (Unauth) Therapeutic Exercises Performed General strengthening exercises (Unauth) Therapeutic Activities Performed eated LE exc 10 reps for heel/ toe raises, LAQ's iometric ADD/ ABD(Unauth) Exercises Performed Left lower, Right lower (Unauth) Therapy Patient IV Access Peripheral venous catheter (Unauth) Respiratory O2 Device During Therapy Nasal cannula (Unauth) Basic Mobility Raw Score 22 (Unauth) Physical Therapy Daily Notes Form Physical Therapy Daily Notes Form (Unauth) Physical Therapy Progress Note Physical Therapy Daily Notes (Unauth) 05/26/2022 8:27 EDT Forearm Left 05/26/2022 20 gauge Peripheral IV Activity: Insert new site Peripheral IV Dressing Condition: Clean, Dry, Intact Peripheral IV Dressing Activity: Transparent dressing Peripheral IV Line Status/Patency: Flushes easily, Good blood return Peripheral IV Site Condition: No complications Peripheral IV Equipment: PRN Adaptor Peripheral IV Number of Attempts: 1 05/26/2022 8:26 EDT Forearm Left 20 gauge Peripheral IV Activity: Discontinued 05/26/2022 6:44 EDT Primary Pain Intensity 0 Primary Pain Nonverbal Response Nods No Pain Scale Type 0-10 Pain scale Nail Bed Color [place] Capillary Refill < 2 seconds Dorsalis Pedis Pulse, Left 2+ Normal Dorsalis Pedis Pulse, Right 2+ Normal Radial Pulse, Left 2+ Normal Radial Pulse, Right 2+ Normal Right Hand Edema None Cardiac Rhythm Sinus rhythm Monitoring Lead II, V1/MCL1 Alarms On and Functional Yes Heart Rate Alarm Set At - Low 50 Heart Rate Alarm Set At - High 120 Respirations Unlabored Respiratory Pattern Regular Breath Sounds Auscultated Anterior and posterior All Lobes Breath Sounds Diminished Cough Hacking, Occasional Tracheal Position Midline GI Symptoms Diarrhea Abdomen Description Non-distended, Symmetric, Soft Abdomen Palpation Tender, Soft Abdomen Tender All quadrants Passing Flatus Yes Bowel Movement Last Date 05/26/2022 Stool Color Brown Stool Description Medium amount, Watery Bowel Continence Continent Swallowing Disorder None Bowel Sounds All Quadrants Present Urinary Elimination Voiding, no difficulties Facial Movement Symmetric resting/crying All Extremity Description Normal for ethnicity Temperature All Extremities Warm Sensory Perception Jevon No impairment Moisture Jevon Occasionally moist Activity Jevon Walks occasionally Mobility Jevon Slightly limited Nutrition Jevon Adequate Friction and Shear Jevon No apparent problem Jevon Score 19 Hospital Acquired Pressure Injury Risk None/minimal risk (score 19-23) Hand Right Skin Abnormality Type: Erythema Skin Abnormality Color: Blue, [place], Red Incision, Wound Dressing/Activity: Open to air Incision, Wound Surrounding Tissue: Erythema Wound Status: Unchanged Wound Associated Pain: None Forearm Right 05/23/2022 20 gauge Peripheral IV Activity: Assessed Peripheral IV Dressing Condition: Clean, Dry, Intact Peripheral IV Dressing Activity: Transparent dressing Peripheral IV Line Status/Patency: Continuous infusion Peripheral IV Site Condition: No complications Peripheral IV Equipment: IV Pump Forearm Left 20 gauge Peripheral IV Activity: Assessed Peripheral IV Dressing Condition: Clean, Dry, Intact Peripheral IV Dressing Activity: Transparent dressing Peripheral IV Line Status/Patency: Flushes easily Peripheral IV Site Condition: No complications Peripheral IV Equipment: PRN Adaptor Neurological Language Able to speak clearly Neurological Symptoms Patient denies Gait Steady Extremity Movement Equal Swallowing Difficulty None Characteristics of Communication Appropriate Characteristics of Speech Clear Facial Symmetry Symmetric Level of Consciousness Alert Aspiration Risk None KIMI Yes Left Pupil Description Regular, Round Right Pupil Description Regular, Round Left Pupil Reaction Brisk Right Pupil Reaction Brisk Pupil Size, Left 3 mm Pupil Size, Right 3 mm Left Upper Extremity Strength Moderate Right Upper Extremity Strength Weak Left Lower Extremity Strength Moderate Right Lower Extremity Strength Moderate Left Upper Extremity Sensation Intact Right Upper Extremity Sensation Intact Left Lower Extremity Sensation Intact Right Lower Extremity Sensation Intact CN V Facial Sensation Corneal reflex present CN VII Facial Expression and Symmetry Facial movement symmetrical CN IX, X Swallowing, Gag Reflex Swallowing present Hill Screen Daily History of Fall in Last 3 Months Hill No Presence of Secondary Diagnosis Hill Yes Use of Ambulatory Aid Hill None, bedrest, wheelchair, nurse IV/PRN Adapter Fall Risk Hill Yes Gait Weak or Impaired Fall Risk Hill Weak Mental Status Fall Risk Hill Oriented to own ability Hill Fall Risk Score 45 Participative in Fall Prevention Yes Violence Risk Confused No Violence Risk Irritable No Violence Risk Boisterous No Violence Risk Verbal Threats No Violence Risk Physical Threats No Violence Risk Attacking Objects No Violence Risk Predictor Score 0 Violence Risk Intervention None Violence Risk Current Interventions None Affect/Behavior Appropriate, Calm, Cooperative Orientation Oriented x 4 Activity Status ADL Repositions self, Resting, Up to bathroom Standard Safety ID band on, Allergy Band on, Call device within reach, Bed in low position, Wheels locked, Upper/Half-Length side-rails up High Risk Safety Bed alert on, Non-Slip footwear, Room check performed Demonstrates Correct Call Light Use Yes COVID 19 Surge in Effect Yes heparin 25 unit(s)/kg/hr unit(s) Dextrose 5% Premix Diluent Dextrose 5% Premix Diluent mL Eating Difficulties None Emesis Count 0 EA Stool Count 1 EA 05/26/2022 6:25 EDT Respiratory Rate 20 br/min Oxygen Therapy Nasal cannula 0L-6L Oxygen Saturation 93 % Oxygen Flow Rate 5 05/26/2022 6:21 EDT Temperature Oral 37.1 DegC Heart Rate Monitored 93 bpm Respiratory Rate 20 br/min Systolic Blood Pressure 157 mmHg HI Diastolic Blood Pressure 71 mmHg Mean Arterial Pressure 100 mmHg Reason For Taking VItal Signs Routine Oxygen Therapy Nasal cannula 0L-6L Oxygen Saturation 89 % Oxygen Flow Rate 4 05/26/2022 6:09 EDT Oxygen Therapy Nasal cannula 0L-6L Oxygen Activity Oxygen On Oxygen Flow Rate 4 05/26/2022 5:56 EDT Cardiac Rhythm Sinus rhythm Monitoring Lead II, V1/MCL1 OR Interval 0.15 second(s) QRS Duration 0.09 second(s) QT Interval 0.33 second(s) QTc Interval 0.41 second(s) Alarms On and Functional Yes Heart Rate Alarm Set At - Low 50 Heart Rate Alarm Set At - High 120 05/26/2022 5:52 EDT heparin 25 unit(s)/kg/hr unit(s) Dextrose 5% Premix Diluent Dextrose 5% Premix Diluent mL 05/26/2022 5:33 EDT pantoprazole 40 mg mg 05/26/2022 4:23 EDT WBC 9.2 10^3/mcL RBC 4.18 10^6/mcL Hgb 11.0 G/dL LOW Hct 34.3 % MCV 82.1 fL MCH 26.4 pg LOW MCHC 32.1 G/dL RDW 15.8 % HI Platelet 384 10^3/mcL MPV 7.3 fL Neutrophil % 64.6 % Lymphocyte % 25.8 % Monocyte % 7.9 % Eosinophil % 1.2 % Basophil % 0.5 % Neutrophil, Absolute 5.9 10^3/mcL Lymphocyte, Absolute 2.4 10^3/mcL Monocyte, Absolute 0.7 10^3/mcL Eosinophil, Absolute 0.1 10^3/mcL Basophil, Absolute 0.0 10^3/mcL Heparin dose (APTT) Heparin IV APTT 80.1 seconds HI Glucose Level 94 mg/dL Sodium Level 141 mEq/L Potassium Level 3.7 mEq/L Chloride 104 mEq/L CO2 33 mEq/L HI Electrolyte Balance 4.0 mEq/L BUN 8.0 mg/dL Creatinine Lvl (s) 0.68 mg/dL BUN/Creatinine Ratio 11.8 ratio Calcium Lvl 8.4 mg/dL LOW Magnesium Lvl 1.8 mg/dL GFR Non- >60 ml/min/1.73sqm NA GFR >60 ml/min/1.73sqm NA Creatinine Clearance Calc 77.44 mL/min 05/26/2022 3:09 EDT Temperature Oral 36.8 DegC Peripheral Pulse Rate 92 bpm Respiratory Rate 20 br/min Systolic Blood Pressure 133 mmHg Diastolic Blood Pressure 66 mmHg Mean Arterial Pressure 88 mmHg Reason For Taking VItal Signs Routine Primary Pain Intensity 0 Primary Pain Nonverbal Response Nods No Pain Scale Type 0-10 Pain scale Heart Rhythm Regular Cardiac Rhythm Sinus rhythm Respirations Unlabored Respiratory Pattern Regular Oxygen Therapy Nasal cannula 0L-6L Oxygen Saturation 92 % LOW Oxygen Flow Rate 4 Urinary Elimination Voiding, no difficulties Neurological Symptoms Patient denies Level of Consciousness Alert Affect/Behavior Appropriate, Calm, Cooperative Orientation Oriented x 4 Orientation Assessment Oriented x 4 Activity Status ADL Up to bathroom Standard Safety Safety level maintained High Risk Safety Room check performed Demonstrates Correct Call Light Use Yes COVID 19 Surge in Effect Yes 05/26/2022 0:35 EDT Able To Drink Order Detail Yes Able To Sign Consents Order Detail Yes Code Status Order Detail Full code IV Order Detail Yes Dialysis Schedule Order Detail N/A Has Diabetes Order Detail No Isolation Precautions Order Detail None Nurse Collect Order Detail 1 Oxygen Order Detail Yes Order Detail No Prior Valve Replacement Order Detail No Transport Mode Order Detail Patient bed 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 Details Form 05/26/2022 0:03 EDT heparin Begin Bag 2.5 mL unit(s) Dextrose 5% Premix Diluent Begin Bag 250 mL mL 05/26/2022 0:00 EDT Nicoderm Patch REMOVAL Not Given: Other (Not Done) 05/25/2022 23:32 EDT Temperature Oral 37.2 DegC Peripheral Pulse Rate 95 bpm Respiratory Rate 20 br/min Systolic Blood Pressure 120 mmHg Diastolic Blood Pressure 69 mmHg Mean Arterial Pressure 86 mmHg Reason For Taking VItal Signs Routine Primary Pain Intensity 0 Primary Pain Nonverbal Response Nods No Pain Scale Type 0-10 Pain scale Respirations Unlabored Respiratory Pattern Regular Oxygen Therapy Nasal cannula 0L-6L Oxygen Saturation 96 % Oxygen Flow Rate 4 Neurological Symptoms Patient denies Level of Consciousness Alert Violence Risk Confused No Violence Risk Irritable No Violence Risk Boisterous No Violence Risk Verbal Threats No Violence Risk Physical Threats No Violence Risk Attacking Objects No Violence Risk Predictor Score 0 Violence Risk Intervention None Violence Risk Current Interventions None Affect/Behavior Appropriate, Calm, Cooperative Orientation Oriented x 4 Orientation Assessment Oriented x 4 Activity Status ADL Resting Standard Safety Safety level maintained High Risk Safety Room check performed Demonstrates Correct Call Light Use Yes COVID 19 Surge in Effect Yes 05/25/2022 23:27 EDT nicotine 7 mg mg 05/25/2022 23:00 EDT Urine Count 1 EA 05/25/2022 21:29 EDT atorvastatin 40 mg mg 05/25/2022 20:44 EDT Pain Scale Assessment 0-10 Pain scale Primary Pain Location Hand Primary Pain Intensity 5 Reason for PRN medication Pain management PRN medication effectiveness Yes PRN Medication Effectiveness Evaluation PRN Medication Effectiveness Evaluation 05/25/2022 19:45 EDT Primary Pain Location Hand Primary Pain Laterality Right Primary Pain Intensity 8 Primary Pain Quality Burning Primary Pain Pharma Intervention Medication Primary Pain Nonverbal Response Nods Yes Pain Scale Type 0-10 Pain scale Nail Bed Color [place] Capillary Refill < 2 seconds Heart Sounds ICU [id number] Heart Rhythm Regular Dorsalis Pedis Pulse, Left 2+ Normal Dorsalis Pedis Pulse, Right 2+ Normal Radial Pulse, Left 2+ Normal Radial Pulse, Right 2+ Normal Right Hand Edema 1+ trace/2mm Cardiac Rhythm Sinus rhythm Monitoring Lead II, V1/MCL1 Alarms On and Functional Yes Heart Rate Alarm Set At - Low 50 Heart Rate Alarm Set At - High 120 Respirations Unlabored Respiratory Pattern Regular Breath Sounds Auscultated Anterior and posterior All Lobes Breath Sounds Clear, Diminished Cough Productive, Able to clear secretions Oxygen Therapy Nasal cannula 0L-6L Oxygen Flow Rate 4 Tracheal Position Midline Abdomen Description Non-distended, Soft Abdomen Palpation Non-Tender, Soft Passing Flatus Yes Bowel Movement Last Date 05/25/2022 Swallowing Disorder None Bowel Sounds All Quadrants Present Urinary Elimination Voiding, no difficulties Facial Movement Makes facial grimaces Skin Symptoms Bruising, Change in skin color All Extremity Description Normal for ethnicity Skin Temperature Warm Temperature All Extremities Warm Skin Description Normal for ethnicity Skin Integrity Intact Skin Turgor Non-Elastic Mucous Membrane Color [place] Mucous Membrane Description Moist Sensory Perception Jevon No impairment Moisture Jevon Occasionally moist Activity Jevon Walks occasionally Mobility Jevon Slightly limited Nutrition Jevon Adequate Friction and Shear Jevon Potential problem Jevon Score 18 Hospital Acquired Pressure Injury Risk Low risk (score 15-18) Hand Right Skin Abnormality Type: Erythema Incision, Wound Dressing/Activity: Open to air Forearm Right 05/23/2022 20 gauge Peripheral IV Activity: Assessed Peripheral IV Dressing Condition: Clean, Dry, Intact Peripheral IV Dressing Activity: Transparent dressing Peripheral IV Site Condition: No complications Peripheral IV Equipment: IV Pump Forearm Left 20 gauge Peripheral IV Activity: Assessed Peripheral IV Dressing Condition: Clean, Dry, Intact Peripheral IV Dressing Activity: Transparent dressing Peripheral IV Site Condition: No complications Peripheral IV Equipment: PRN Adaptor Neurological Language Able to speak clearly Neurological Symptoms Patient denies Gait Steady Extremity Movement Equal Swallowing Difficulty None Characteristics of Communication Appropriate Characteristics of Speech Clear Facial Symmetry Symmetric Level of Consciousness Alert Aspiration Risk None KIMI Yes Left Pupil Description Regular Right Pupil Description Regular Left Pupil Reaction Brisk Right Pupil Reaction Brisk Pupil Size, Left 3 mm Pupil Size, Right 3 mm Left Upper Extremity Strength Moderate Right Upper Extremity Strength Weak Left Lower Extremity Strength Moderate Right Lower Extremity Strength Moderate Left Upper Extremity Sensation Intact Right Upper Extremity Sensation Intact Left Lower Extremity Sensation Intact Right Lower Extremity Sensation Intact CN V Facial Sensation Light touch equal bilaterally CN VII Facial Expression and Symmetry Facial movement symmetrical CN VIII Hearing Spoken word equally audible left/right CN IX, X Swallowing, Gag Reflex Swallowing present [place] Screen Daily History of Fall in Last 3 Months [place] No Presence of Secondary Diagnosis [place] Yes Use of Ambulatory Aid [place] Crutches, cane, walker IV/PRN Adapter Fall Risk Hill Yes Gait Weak or Impaired Fall Risk Hill Weak Mental Status Fall Risk Hill Oriented to own ability Hill Fall Risk Score 60 HI Participative in Fall Prevention Yes Violence Risk Confused No Violence Risk Irritable No Violence Risk Boisterous No Violence Risk Verbal Threats No Violence Risk Physical Threats No Violence Risk Attacking Objects No Violence Risk Predictor Score 0 Violence Risk Intervention None Violence Risk Current Interventions None Affect/Behavior Appropriate, Calm, Cooperative Orientation Oriented x 4 Orientation Assessment Oriented x 4 Activity Status ADL Awake, Repositions self Standard Safety ID band on, Call device within reach, Bed in low position, Wheels locked, Upper/Half-Length side-rails up, Phone within reach, Safety level maintained, Non-Slip footwear High Risk Safety Room check performed Demonstrates Correct Call Light Use Yes COVID 19 Surge in Effect Yes Appetite Good Eating Difficulties None 05/25/2022 19:44 EDT Primary Pain Intensity 8 acetaminophen-hydrocodone 1 tab(s) tab(s) 05/25/2022 19:08 EDT Temperature Oral 36.7 DegC Apical Heart Rate 87 bpm Respiratory Rate 20 br/min Systolic Blood Pressure 150 mmHg HI Diastolic Blood Pressure 75 mmHg Mean Arterial Pressure 100 mmHg Reason For Taking VItal Signs Routine Oxygen Therapy Nasal cannula 0L-6L Oxygen Saturation 96 % Oxygen Flow Rate 4 Activity Status ADL Awake, Resting, Watching TV Standard Safety ID band on, Allergy Band on, Call device within reach, Bed in low position, Wheels locked, Upper/Half-Length side-rails up, Phone within reach, personal items within reach, Safety level maintained High Risk Safety Room check performed Demonstrates Correct Call Light Use Yes COVID 19 Surge in Effect Yes 05/25/2022 17:13 EDT Reason For Taking VItal Signs Routine Primary Pain Intensity 0 Pain Scale Type 0-10 Pain scale Cardiac Rhythm Sinus rhythm Monitoring Lead II, V1/MCL1 OR Interval 0.11 second(s) QRS Duration 0.11 second(s) QT Interval 0.45 second(s) QTc Interval 0.53 second(s) Alarms On and Functional Yes Heart Rate Alarm Set At - Low 50 Heart Rate Alarm Set At - High 120 Oxygen Therapy Nasal cannula 0L-6L Oxygen Flow Rate 4 Activity Status ADL Awake, Up to chair Standard Safety ID band on, Call device within reach, Phone within reach, personal items within reach, Assistive devices within reach, Safety level maintained, Non-Slip footwear High Risk Safety Room check performed Demonstrates Correct Call Light Use Yes COVID 19 Surge in Effect Yes 05/25/2022 16:21 EDT Reason for PRN medication Not Done: Task Duplication (Not Done) Able To Drink Order Detail Not Done: Task Duplication (Not Done) Able To Drink Order Detail Not Done: Task Duplication (Not Done) Able To Sign Consents Order Detail Not Done: Task Duplication (Not Done) Able To Sign Consents Order Detail Not Done: Task Duplication (Not Done) Code Status Order Detail Not Done: Task Duplication (Not Done) Code Status Order Detail Not Done: Task Duplication (Not Done) IV Order Detail Not Done: Task Duplication (Not Done) IV Order Detail Not Done: Task Duplication (Not Done) Dialysis Schedule Order Detail Not Done: Task Duplication (Not Done) Dialysis Schedule Order Detail Not Done: Task Duplication (Not Done) Has Diabetes Order Detail Not Done: Task Duplication (Not Done) Has Diabetes Order Detail Not Done: Task Duplication (Not Done) Isolation Precautions Order Detail Not Done: Task Duplication (Not Done) Isolation Precautions Order Detail Not Done: Task Duplication (Not Done) Nurse Collect Order Detail Not Done: Task Duplication (Not Done) Nurse Collect Order Detail Not Done: Task Duplication (Not Done) Oxygen Order Detail Not Done: Task Duplication (Not Done) Oxygen Order Detail Not Done: Task Duplication (Not Done) Order Detail Not Done: Task Duplication (Not Done) Order Detail Not Done: Task Duplication (Not Done) Prior Valve Replacement Order Detail Not Done: Task Duplication (Not Done) Prior Valve Replacement Order Detail Not Done: Task Duplication (Not Done) Transport Mode Order Detail Not Done: Task Duplication (Not Done) Transport Mode Order Detail Not Done: Task Duplication (Not Done) NIH Stroke Scale Form Not Done (Not Done) NIH Stroke Scale Form Not Done (Not Done) 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 Sheriff Details Form Not Done (Not Done) 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 Sheriff Details Form Not Done (Not Done) PRN Medication Effectiveness Evaluation Not Done (Not Done) 05/25/2022 14:14 EDT Basic Command Following Intact Safety/Judgment Requires verbal cues Assist Level-Upper Extremity Dressing Min A Device/Equipment-Upper Extremity Dressi None Level-Upper Extremity Dressing Seated Assist Level-Lower Extremity Dressing Supervised Device/Equipment-Lower Extremity Dressi None Level-Lower Extremity Dressing Seated Orientation Assessment Oriented x 4 Worker's Comp Patient No OT Education Grid OT Education Grid OT Treatment Patient Response nsg ok tx and pt agreed. c/o fatigue/weakness. visitors in room. leftin chair with call light OT Treatment Response no goals met. cont to increase standing transfers mobility adl ue strength and arom General Cognition Other: forgetful Put On Take Off Upper Body Clothing A Little (3) Put On Take Off Lower Body Clothing A Little (3) Bathing? A Little (3) Toileting? A Little (3) Take Care Of Personal Grooming None (4) Eating Meals None (4) OT Initiate/Continue Treatment Yes OT Goals OT Goals Therapy Pain Intensity 0 OT ADL Training Provided Yes OT Therapeutic Activities/Exercise Yes OT Therapeutic Exercises General strengthening exercises OT Exercises Performed Left upper, Right upper OT Therapeutic Activities Performed educated and completed lue shoulder arom to full rom x 10 reps shoulder flex/ext horiz abd/add. pt completed all joints x 10 reps with short rest breaks. full rom all joints with increased strength noted. however pt did c/o fatigue/weakness Daily Activity Raw Score 20 Occupational Therapy Daily Note Form Occupational Therapy Daily Note Form Occupational Therapy Progress Note OT Daily Note 05/25/2022 13:35 EDT Reason For Taking VItal Signs NTG 3rd dose SL Nail Bed Color [place] Capillary Refill < 2 seconds Dorsalis Pedis Pulse, Left 2+ Normal Dorsalis Pedis Pulse, Right 2+ Normal Radial Pulse, Left 2+ Normal Radial Pulse, Right 2+ Normal Right Hand Edema 1+ trace/2mm Cardiac Rhythm Sinus tachycardia Monitoring Lead II, V1/MCL1 Alarms On and Functional Yes Heart Rate Alarm Set At - Low 50 Heart Rate Alarm Set At - High 120 Respirations Unlabored Respiratory Pattern Regular Breath Sounds Auscultated Anterior and posterior All Lobes Breath Sounds Clear, Diminished Abdomen Description Non-distended Abdomen Palpation Non-Tender Bowel Continence Incontinent Bowel Sounds All Quadrants Present Urinary Elimination Voiding, no difficulties Facial Movement Makes facial grimaces Skin Symptoms Change in skin color All Extremity Description Normal for ethnicity Skin Temperature Warm Temperature All Extremities Warm Skin Description Normal for ethnicity Skin Integrity Intact Skin Turgor Non-Elastic Mucous Membrane Color [place] Mucous Membrane Description Moist Hand Right Skin Abnormality Type: Erythema Incision, Wound Dressing/Activity: Open to air Forearm Right 05/23/2022 20 gauge Peripheral IV Activity: Assessed Peripheral IV Dressing Condition: Clean, Dry, Intact Peripheral IV Dressing Activity: Transparent dressing Peripheral IV Line Status/Patency: Flushes easily Peripheral IV Site Condition: No complications Peripheral IV Equipment: IV Pump Forearm Left 20 gauge Peripheral IV Activity: Assessed Peripheral IV Dressing Condition: Clean, Dry, Intact Peripheral IV Dressing Activity: Transparent dressing Peripheral IV Line Status/Patency: Flushes easily Peripheral IV Site Condition: No complications Peripheral IV Equipment: PRN Adaptor Neurological Language Able to speak clearly Neurological Symptoms Patient denies Gait Steady Extremity Movement Equal Swallowing Difficulty None Characteristics of Communication Appropriate Characteristics of Speech Clear Facial Symmetry Symmetric Level of Consciousness Alert Aspiration Risk None KIMI Yes Left Pupil Description Regular Right Pupil Description Regular Left Pupil Reaction Brisk Right Pupil Reaction Brisk Pupil Size, Left 3 mm Pupil Size, Right 3 mm Strength All Extremities Moderate Left Upper Extremity Sensation Intact Right Upper Extremity Sensation Intact Left Lower Extremity Sensation Intact Right Lower Extremity Sensation Intact CN V Facial Sensation Corneal reflex present CN VII Facial Expression and Symmetry Facial movement symmetrical CN VIII Hearing Spoken word equally audible left/right CN IX, X Swallowing, Gag Reflex Swallowing present Affect/Behavior Appropriate, Calm, Cooperative Orientation Oriented x 4 Activity Status ADL Repositions self Standard Safety Safety level maintained High Risk Safety Room check performed Demonstrates Correct Call Light Use Yes COVID 19 Surge in Effect Yes Emesis Count 0 EA Stool Count 0 EA 05/25/2022 11:40 EDT Sodium Chloride 0.9% Begin Bag 1,000 mL mL 05/25/2022 11:31 EDT Vascular Surgery Progress Note Progress Note 05/25/2022 11:12 EDT Discharge To, Anticipated Home Health Care Transition Planning Note Transition Planning Ongoing Assessment 05/25/2022 10:54 EDT Temperature Oral 36.4 DegC Apical Heart Rate 104 bpm HI Respiratory Rate 20 br/min Systolic Blood Pressure 129 mmHg Diastolic Blood Pressure 106 mmHg >HHI Reason For Taking VItal Signs Routine Heart Rhythm Regular Oxygen Therapy Nasal cannula 0L-6L Oxygen Saturation 94 % Oxygen Flow Rate 4 Activity Status ADL Awake, Remains up in chair Standard Safety Safety level maintained High Risk Safety Room check performed Demonstrates Correct Call Light Use Yes COVID 19 Surge in Effect Yes 05/25/2022 10:40 EDT Basic Command Following Intact Safety/Judgment Requires verbal cues Oxygen Flow Rate 4 L/min Bed Mobility Supine to Sit Mod I Bed Mobility Sit to Supine Mod I Transfer Sit to Stand Supervised Transfer Stand to Sit Supervised Ambulation Distance 2 20 ft Ambulation Level Supervised Ambulation Distance 40 ft Ambulation Device Utilized Single point cane Weightbearing Maintained Yes Ambulation Quality Pt was able to use the cane on the R side but did not rely on the AD for much support 2nd walk was without the AD which allowed for improved posture with noted longer stride IV lines were managed by MATERIAL COMBINER Orientation Assessment Oriented x 4 Worker's Comp Patient No PT Education Grid PT Education Grid PT Treatment Response Pt was able to amb without the AD on last Tx No overt LOB or sway noted Pt did not reach out for support Pt agreed to remain up in the chair post Tx Will address steps next Tx to prepare for homegoing. PT Treatment Patient Response OK to see per nurse (Jay) Pt c/o burning pain in the L UE Nurse stopped the fluid for activity. Turning Over In Bed None (4) Sit Down/Stand Up From Chair with Arms A Little (3) Move From Back To Sit On Bedside None (4) Moving To And From Bed To Chair A Little (3) Need To Walk In Hospital Room A Little (3) Climbing 3-5 Steps With A Railing A Little (3) PT Initiate/Continue Treatment Yes Therapy Pain Location Upper arm Therapy Pain Laterality Left Therapy Pain Quality Burning Therapy Pain Radiation Description none Therapy Pain Intensity 6 Therapy Pain Associated Symptoms Nausea, Weakness Therapy Pain Aggravating Factors None Therapy Pain Acceptable Intensity 0 Therapy Pain Alleviating Factors None Therapy Pain Negatively Impacts Daily life Therapy Pain Interventions Repositioning, Other: nurse stopped the IV for Tx. Mobility/Balance Training Provided Yes Therapy Patient Monitors classroom monitor Therapy Patient IV Access Peripheral venous catheter Respiratory O2 Device During Therapy Nasal cannula Basic Mobility Raw Score 20 Physical Therapy Daily Notes Form Physical Therapy Daily Notes Form Physical Therapy Progress Note Physical Therapy Daily Notes 05/25/2022 10:32 EDT Primary Pain Location Low back Primary Pain Intensity 4 Primary Pain Pharma Intervention Medication Primary Pain Nonverbal Response Nods Yes Pain Scale Type 0-10 Pain scale acetaminophen-hydrocodone 1 tab(s) tab(s) 05/25/2022 10:28 EDT potassium chloride 20 mEq mEq potassium chloride 20 mEq mEq 05/25/2022 10:27 EDT Hospitalist Progress Note Progress Note 05/25/2022 9:22 EDT Nail Bed Color [place] Capillary Refill < 2 seconds Dorsalis Pedis Pulse, Left 2+ Normal Dorsalis Pedis Pulse, Right 2+ Normal Radial Pulse, Left 2+ Normal Radial Pulse, Right 2+ Normal Right Hand Edema 1+ trace/2mm Respirations Unlabored Respiratory Pattern Regular Breath Sounds Auscultated Anterior and posterior All Lobes Breath Sounds Diminished, Expiratory wheeze Abdomen Description Non-distended Abdomen Palpation Non-Tender Bowel Continence Incontinent Bowel Sounds All Quadrants Present Urinary Elimination Incontinence Facial Movement Symmetric resting/crying Skin Symptoms Change in skin color All Extremity Description Normal for ethnicity Skin Temperature Warm Temperature All Extremities Warm Skin Description Normal for ethnicity Skin Integrity Intact Skin Turgor Non-Elastic Mucous Membrane Color [place] Mucous Membrane Description Moist Sensory Perception Jevon No impairment Moisture Jevon Occasionally moist Activity Jevon Walks occasionally Mobility Jevon Slightly limited Nutrition Jevon Adequate Friction and Shear Jevon Potential problem Jevon Score 18 Hospital Acquired Pressure Injury Risk Low risk (score 15-18) Hand Right Skin Abnormality Type: Erythema Incision, Wound Dressing/Activity: Open to air Forearm Right 05/23/2022 20 gauge Peripheral IV Activity: Assessed Peripheral IV Dressing Condition: Clean, Dry, Intact Peripheral IV Dressing Activity: Transparent dressing Peripheral IV Line Status/Patency: Flushes easily Peripheral IV Site Condition: No complications Peripheral IV Equipment: IV Pump Forearm Left 20 gauge Peripheral IV Activity: Assessed Peripheral IV Dressing Condition: Clean, Dry, Intact Peripheral IV Dressing Activity: Transparent dressing Peripheral IV Line Status/Patency: Flushes easily Peripheral IV Site Condition: No complications Peripheral IV Equipment: IV Pump Neurological Language Able to speak clearly Neurological Symptoms Patient denies Gait Steady Extremity Movement Equal Swallowing Difficulty None Characteristics of Communication Appropriate Characteristics of Speech Clear Facial Symmetry Symmetric Level of Consciousness Alert Aspiration Risk None KIMI Yes Left Pupil Description Regular, Round Right Pupil Description Regular, Round Left Pupil Reaction Brisk Right Pupil Reaction Brisk Pupil Size, Left 3 mm Pupil Size, Righ (more content not included)... [facility] [id number] Vascular surgery Progress note Date of Service 05/25/2022 Subjective Patient is doing well. Ischemic changes noted to the left fingers. Reviewed the redo CTA and duplexthat shows a right innominate severe stenosis. Probably had some emboli from this causing the stroke and emboli to the fingers. Continue antiplatelet medications will need stenting of this. Objective Vitals and Measurements T: 36.4 C (Oral) TMIN: 36.4 C (Oral) TMAX: 37.1 C (Oral) HR: 104(Apical) RR: 20 BP: 129/106 SpO2: 94% Intake and Output 7AM Yesterday to 7AM Today Intake and Output (Last 24 hours) Intake Oral Intake 240.00 Output Urinary Catheter Output: 600.00 Stool Count 0.00 Emesis Count 0.00 Total Summary Total Intake 240.00 Total Output 600.00 Fluid Balance -360.00 Physical Exam Patient awake, alert Discomfort left arm currently with potassium infusion Afebrile vital signs stable Extremity ischemic changes to the fingers noted Weight Dosing Weight: 77.3 kg (05/22/22) Medications Medications (18) Active Scheduled: (7) aspirin 81 mg Chewable 81 mg 1 tab(s), Oral, qDay atorvastatin 40 mg tablet 40 mg 1 tab(s), Oral, qDay levofloxacin 500 mg 100 mL, IV Piggyback, qDay Nicoderm patch REMOVAL 1 EA, Miscellaneous, q24h nicotine 7 mg/24 hr ER patch 7 mg 1 patch(es), Transdermal, q24h pantoprazole 40 mg EC tablet 40 mg 1 tab(s), Oral, qDayAC potassium chloride (PMX) 20 mEq/100 mL 20 mEq 100 mL, IV Piggyback, q2h Continuous: (1) heparin 25,000 unit(s) [18 unit(s)/kg/hr] + Dextrose 5% Premix Diluent 250 mL 250 mL, Intravenous, 13.91 mL/hr PRN: (10) acetaminophen 325 mg Suppository 650 mg 2 supp, Rectal, q4h acetaminophen 325 mg Tablet 650 mg 2 tab(s), Oral, q4h acetaminophen 325 mg Tablet 650 mg 2 tab(s), Oral, q4h acetaminophen-HYDROcodone 325-5 mg tablet 1 tab(s), Oral, q4hr albuterol - ipratropium 2.5 mg-0.5 mg/3 mL Inhal Eli UD 3 mL, Inhalation, q4hRT albuterol - ipratropium 2.5 mg-0.5 mg/3 mL Inhal Eli UD 3 mL, Inhalation, q4hRT heparin 5,000 units/mL (1 mL) vial 5,411 unit(s) 1.08 mL, IV Push, q6h heparin 5,000 units/mL (1 mL) vial 3,092 unit(s) 0.62 mL, IV Push, q6h morphine 2 mg/mL 1 mL syringe 2 mg 1 mL, IV Push, q4h naloxone 0.4 mg/mL (1mL) vial 0.4 mg 1 mL, IV Push, AsDirected Lab Results 05/25 04:42 WBC: 9.8 Hgb: 10.6 L Hct: 33.6 L Platelet: 345 Neutrophil %: 72.9 Glucose Level: 98 Sodium Level: 139 Potassium Level: 3.1 L BUN: 8.0 Creatinine Lvl (s): 0.62 05/24 06:21 WBC: 12.0 H Hgb: 10.7 L Hct: 33.1 L Platelet: 296 Neutrophil %: 76.5 H Glucose Level: 87 Sodium Level: 138 Potassium Level: 3.3 L BUN: 9.0 Creatinine Lvl (s): 0.67 Imaging Results and Diagnostics Redo CTA of the right upper extremity and duplex of the arm reviewed. Severe stenosis of the innominate artery EKG No qualifying data available. Assessment/Plan Acute left-sided weakness 2. Right innominate artery. We will plan for a cutdown on the carotid artery and retrograde imagingand stenting of the innominate artery. We will plan for this either tomorrow or Monday. We will notstop heparin for the procedure. Start Plavix. We will make her n.p.o. after midnight if able to do for tomorrow. Digitally Signed by LUIS VERA MD on 05/25/2022 11:33 AM [facility] [id number] Note Date of Service 05/25/2022 Chief Complaint Dysarthria left-sided weakness Subjective Patient is 51-year-old female with past medical history significant for tobacco abuse who initiallypresented to [facility] with chief complaint of dysarthria, left-sided facial/arm weakness, right hand pain, cough, fever. CT scan head was consistent with right parietal and posterior temporal lobeacute CVA. CTA /neck consistent with left subclavian occlusion, left carotid stenosis 50-69%. Chestx- ray consistent with bilateral consolidation. Patient was transferred to [facility] for further management. Neurology and vascular surgery on consultation. Due to severe right hand pain and initial cyanosis, right upper extremity arterial Doppler was performed that showed severe peripheral arterial disease with greater than 75% stenosis in the right innominate. patient is currently on heparin byweight and aspirin. Neurology recommending hypercoagulable work-up which is being sent. Patient seen and examined Patient did appear anxious today Patient stating that she is having some blood-tinged sputum, will order humidified O2 Discussed case with vascular surgery team, Dr. Vera currently reviewing vascular imaging recommendations to follow Patient is previously documented as having pain and cyanosis of right hand, and appears pinkish warm today, continue with heparin acute overnight events Discussed plan of care answered all questions patient endorsing understanding Objective Vitals and Measurements T: 36.9 C (Oral) TMIN: 36.7 C (Oral) TMAX: 37.1 C (Oral) HR: 91(Apical) RR: 20 BP: 125/71 SpO2: 92% Intake and Output 7AM Yesterday to 7AM Today Intake and Output (Last 24 hours) Intake Oral Intake 240.00 Output Urinary Catheter Output: 600.00 Stool Count 0.00 Emesis Count 0.00 Total Summary Total Intake 240.00 Total Output 600.00 Fluid Balance -360.00 Physical Exam HEENT: No Pallor, No Icterus Cardiac: RRR, No murmur Lungs: Unlabored regular no wheezing Abdomen: Soft, Non tender Musculoskeletal: Normal muscle bulk, right upper extremity pink warm Extremities: No edema, good pulses Neurological: Alert oriented x3 cranial nerves intact spontaneously moving limbs Skin: No rash, no nodules Weight Dosing Weight: 77.3 kg (05/22/22) Medications Medications (18) Active Scheduled: (7) aspirin 81 mg Chewable 81 mg 1 tab(s), Oral, qDay atorvastatin 40 mg tablet 40 mg 1 tab(s), Oral, qDay levofloxacin 500 mg 100 mL, IV Piggyback, qDay Nicoderm patch REMOVAL 1 EA, Miscellaneous, q24h nicotine 7 mg/24 hr ER patch 7 mg 1 patch(es), Transdermal, q24h pantoprazole 40 mg EC tablet 40 mg 1 tab(s), Oral, qDayAC potassium chloride (PMX) 20 mEq/100 mL 20 mEq 100 mL, IV Piggyback, q2h Continuous: (1) heparin 25,000 unit(s) [18 unit(s)/kg/hr] + Dextrose 5% Premix Diluent 250 mL 250 mL, Intravenous, 13.91 mL/hr PRN: (10) acetaminophen 325 mg Suppository 650 mg 2 supp, Rectal, q4h acetaminophen 325 mg Tablet 650 mg 2 tab(s), Oral, q4h acetaminophen 325 mg Tablet 650 mg 2 tab(s), Oral, q4h acetaminophen-HYDROcodone 325-5 mg tablet 1 tab(s), Oral, q4hr albuterol - ipratropium 2.5 mg-0.5 mg/3 mL Inhal Eli UD 3 mL, Inhalation, q4hRT albuterol - ipratropium 2.5 mg-0.5 mg/3 mL Inhal Eli UD 3 mL, Inhalation, q4hRT heparin 5,000 units/mL (1 mL) vial 5,411 unit(s) 1.08 mL, IV Push, q6h heparin 5,000 units/mL (1 mL) vial 3,092 unit(s) 0.62 mL, IV Push, q6h morphine 2 mg/mL 1 mL syringe 2 mg 1 mL, IV Push, q4h naloxone 0.4 mg/mL (1mL) vial 0.4 mg 1 mL, IV Push, AsDirected Lab Results 05/25 04:42 WBC: 9.8 Hgb: 10.6 L Hct: 33.6 L Platelet: 345 Neutrophil %: 72.9 Glucose Level: 98 Sodium Level: 139 Potassium Level: 3.1 L BUN: 8.0 Creatinine Lvl (s): 0.62 05/24 06:21 WBC: 12.0 H Hgb: 10.7 L Hct: 33.1 L Platelet: 296 Neutrophil %: 76.5 H Glucose Level: 87 Sodium Level: 138 Potassium Level: 3.3 L BUN: 9.0 Creatinine Lvl (s): 0.67 EKG No qualifying data available. Assessment/Plan Acute left-sided weakness 1. Acute CVA 2. Right upper extremity severe peripheral arterial disease 3. Left-sided subclavian stenosis 4. Bilateral carotid artery stenosis 5. Community acquired pneumonia 6. Elevated troponin 7. Tobacco abuse Acute CVA involving right-sided MCA territory predominantly right parietal and temporal lobe as well as right frontal and lateral occipital lobes There is concern for underlying cardioembolic source. Echocardiogram is limited negative for shunt or embolic source patient is currently on aspirin and heparin by weight. Continue statin hypercoagulable work up ordered by Neurology. Regarding severe peripheral arterial disease, vascular surgery is following and patient is being maintained on heparin by weight currently. Patient with initial right hand pain and cyanosis. Arterialduplex of right upper extremity consistent with severe peripheral arterial disease and 75% stenosisof right innominate. Further vascular surgery recommendations are currently pending we will follow-up with vascular surgery if plan is to continue on anticoagulation we will hold off on SINDY otherwisepatient will need SINDY per neurology recommendations Community acquired [id number] airspace disease on chest x-ray continue Levaquin. Patient on 4 L O2 nasal cannula wean as tolerated Tobacco use- Counselled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 healthcare provider Wound doesn't heal Nausea or vomiting 1030-4541 [employer] [address] [place] [address]. All rights reserved. This information is not intended as a substitute for professional medical care. Always follow yourhealthcare professional's instructions. Follow Up Care 05/18/2022 08:08:41 With:EWA RAMÍREZ MD Address: [address] [facility] [place] [address]- [phone] When:2-4 days With:Go to emergency room if symptoms worsen Address:Unknown When:2-4 days With:EDISON RIVERO DO Address: [facility] [address] [place] [phone] When:2-4 days [facility] 10-19-2022 Note Discharge Instructions Thank you for allowing [facility] to assist you with your healthcare needs. The following is importantdischarge information regarding your hospital visit. Diagnosis from Today's Visit Finger pain Chemical burn Burn care What to Do Next Instructions from Your Care Team Take Keflex as prescribed to cover for possible early infection. Follow-up with hand doctor. Follow-up with your primary care provider. Return emergency department if experience worsening symptoms, inability to flex your fingers, increased swelling, or any other care concern. No qualifying data available. Post Acute Orders No qualifying data available. You Need to Schedule the Following Appointments Follow Up with EWA RAMÍREZ MD When Within 2-4 days Where: [address] [place] [address]- [phone] Follow Up with Go to emergency room if symptoms worsen When Within 2-4 days Follow Up with EDISON RIVERO DO When Within 2-4 days Where: [facility] [address] [facility] [place] [place] [address]- [phone] Allergies penicillin Medications Please ask your primary doctor or pharmacist before taking any other medication not listed, including over the counter drugs, herbal medications, vitamins and or supplements as they may interact withyour home medications. What How Much When Why Instructions Last Dose New cephalexin (cephalexin 500 mg oral tablet) 1 tab(s) by mouth Four (4) times a day Finger pain Chemical burn Duration: 7 Days Printed Prescription New ibuprofen (ibuprofen 800 mg oral tablet) 1 tab(s) by mouth Three (3) times a day as needed for for pain Finger pain Chemical burn Duration: 7 Days Printed Prescription Unchanged cetirizine (ZyrTEC) Once a day Unchanged furosemide (furosemide 40 mg oral tablet) 1 tab(s) by mouth Every other day Unchanged lansoprazole (lansoprazole 30 mg oral delayed release capsule) 1 cap by mouth Once a day Unchanged loratadine (Claritin) 10 Milligram Unchanged methylPREDNISolone (Medrol Dosepak 4 mg oral tablet) 1 packet(s) by mouth Every day Unchanged naproxen (Naprosyn 500 mg oral tablet) 1 tab(s) by mouth Two (2) times a day as needed for as needed for pain Duration: 10 Days Unchanged omeprazole (NF) (PriLOSEC (NF)) by mouth Once a day Unchanged predniSONE (predniSONE 50 mg oral tablet) 1 tab(s) by mouth Once a day with a meal Pain of left ankle joint Duration: 5 Days Unchanged sertraline (sertraline 50 mg oral tablet) 1 tab(s) by mouth Every day Unchanged trolamine salicylate topical (trolamine salicylate topical 10% cream) 1 application Topical Four (4) times a day as needed for for pain Please take this list to your next doctor s visit. Bring all medications you take, including over the counter medications, herbals and other supplements with you to your doctor s visit. Patients and families are reminded to discard old lists and to update any records with all medication providers or retail pharmacies. Medication Leaflets cephalexin (sef a KATHY in) Keflex What is the most important information I should know about cephalexin? You should not use this medicine if you are allergic to cephalexin or to similar antibiotics, such as Ceftin, Cefzil, Omnicef, and others. Tell your doctor if you are allergic to any drugs, especially penicillins or other antibiotics. What is cephalexin? Cephalexin is a cephalosporin (SEF a low spor in) antibiotic that is used to treat bacterial infections of the lungs, ear, skin, bones, bladder, and kidneys. Cephalexin is used to treat infections in adults and children who are at least 1 year old. Cephalexin may also be used for purposes not listed in this medication guide. What should I discuss with my healthcare provider before taking cephalexin? You should not use this medicine if you are allergic to cephalexin or any other cephalosporin antibiotic (cefdinir, cefadroxil, cefoxitin, cefprozil, ceftriaxone, cefuroxime, Omnicef, and others). Tell your doctor if you have ever had: an allergy to any drug (especially penicillin); liver or kidney disease; or intestinal problems, such as colitis. The liquid form of cephalexin may contain sugar. This may affect you if you have diabetes. Tell your doctor if you are or breast-feeding. How should I take cephalexin? Follow all directions on your prescription label and read all medication guides or instruction sheets. Use the medicine exactly as directed. Do not use cephalexin to treat any condition that has not been checked by your doctor. Measure liquid medicine carefully. Use the dosing syringe provided, or use a medicine dose-measuring device (not a kitchen spoon). Use this medicine for the full prescribed length of time, even if your symptoms quickly improve. Skipping doses can increase your risk of infection that is resistant to medication. Cephalexin will not treat a viral infection such as the flu or a common cold. Do not share cephalexin with another person, even if they have the same symptoms you have. This medicine can affect the results of certain medical tests. Tell any doctor who treats you that you are using cephalexin. Store the tablets and capsules at room temperature away from moisture, heat, and light. Store the liquid medicine in the refrigerator. Throw away any unused liquid after 14 days. What happens if I miss a dose? Take the medicine as soon as you can, but skip the missed dose if it is almost time for your next dose. Do not take two doses at one time. What happens if I overdose? Seek emergency medical attention or call the Poison Help line at . Overdose symptoms may include nausea, vomiting, stomach pain, diarrhea, and blood in your urine. What should I avoid while taking cephalexin? Antibiotic medicines can cause diarrhea, which may be a sign of a new infection. If you have diarrhea that is watery or bloody, call your doctor before using anti-diarrhea medicine. What are the possible side effects of cephalexin? Get emergency medical help if you have signs of an allergic reaction (hives, difficult breathing, swelling in your face or throat) or a severe skin reaction (fever, sore throat, burning eyes, skin pain, red or purple skin rash with blistering and peeling). Call your doctor at once if you have: severe stomach pain, diarrhea that is watery or bloody (even if it occurs months after your last dose); unusual tiredness, feeling light-headed or short of breath; easy bruising, unusual bleeding, purple or red spots under your skin; a seizure; pale skin, cold hands and feet; yellowed skin, dark colored urine; fever, weakness; or pain in your side or lower back, painful urination. Common side effects may include: diarrhea; nausea, vomiting; indigestion, stomach pain; or vaginal itching or discharge. This is not a complete list of side effects and others may occur. Call your doctor for medical advice about side effects. You may report side effects to FDA at 2-603-NEM-5350. What other drugs will affect cephalexin? Tell your doctor about all your other medicines, especially: metformin; or probenecid. This list is not complete. Other drugs may affect cephalexin, including prescription and gwki-rfw-kpogmak medicines, vitamins, and herbal products. Not all possible drug interactions are listed here. Where can I get more information? Your pharmacist can provide more information about cephalexin. Remember, keep this and all other medicines out of the reach of children, never share your medicines with others, and use this medication only for the indication prescribed. Every effort has been made to ensure that the information provided by [employer] ('[employer]') is accurate, up-to-date, and complete, but no guarantee is made to that effect. Drug information contained herein may be time sensitive. [employer] information has been compiled for use by healthcare practitioners and consumers in the [place] and therefore [employer] does not warrant that uses outside of the [place] are appropriate, unless specifically indicated otherwise. [employer] drug information does not endorse drugs, diagnose patients or recommend therapy. [employer] drug information isan informational resource designed to assist licensed healthcare practitioners in caring for their p atients and/or to serve consumers viewing this service as a supplement to, and not a substitute for, the expertise, skill, knowledge and judgment of healthcare practitioners. The absence of a warningfor a given drug or drug combination in no way should be construed to indicate that the drug or drug combination is safe, effective or appropriate for any given patient. [employer] does not assume any responsibility for any aspect of healthcare administered with the aid of information [employer] provides. The information contained herein is not intended to cover all possible uses, directions, precautions, warnings, drug interactions, allergic reactions, or adverse effects. If you have questions about the drugs you are taking, check with your doctor, nurse or pharmacist. Copyright 7611-2862 [employer] Version: 10.03. Revision Date: 08/03/2020. ibuprofen (EYE bue PROE fen) Advil, Genpril, IBU, Midol IB, Motrin IB, Proprinal, Smart Sense Children's Ibuprofen What is the most important information I should know about ibuprofen? Ibuprofen can increase your risk of fatal heart attack or stroke. Do not use this medicine just before or after heart bypass surgery (coronary artery bypass graft, or CABG). Ibuprofen may also cause stomach or intestinal bleeding, which can be fatal. What is ibuprofen? Ibuprofen is a nonsteroidal anti-inflammatory drug (NSAID). Ibuprofen is used to reduce fever and treat pain or inflammation caused by many conditions such as headache, toothache, back pain, arthritis, menstrual cramps, or minor injury. This medicine is used in adults and children who are at least 6 months old. Ibuprofen may also be used for purposes not listed in this medication guide. What should I discuss with my healthcare provider before taking ibuprofen? Ibuprofen can increase your risk of fatal heart attack or stroke, even if you don't have any risk factors. Do not use this medicine just before or after heart bypass surgery (coronary artery bypass graft, or CABG). Ibuprofen may also cause stomach or intestinal bleeding, which can be fatal. These conditions can occur without warning while you are using ibuprofen, especially in older adults. You should not use ibuprofen if you are allergic to it, or if you have ever had an asthma attack orsevere allergic reaction after taking aspirin or an NSAID. Ask a doctor or pharmacist if this medicine is safe to use if you have ever had: heart disease, high blood pressure, high cholesterol, diabetes, or if you smoke; a heart attack, stroke, or blood clot; stomach ulcers or bleeding; liver or kidney disease; asthma; or if you take aspirin to prevent heart attack or stroke. Ask a doctor before using this medicine if you are or . If you are , you should not take ibuprofen unless your doctor tells you to. Taking an NSAIDduring the last 20 weeks of can cause serious heart or kidney problems in the unborn babyand possible complications with your . Do not give ibuprofen to a child younger than 6 months old without the advice of a doctor. How should I take ibuprofen? Use exactly as directed on the label, or as prescribed by your doctor. Use the lowest dose that is effective in treating your condition. An ibuprofen overdose can damage your stomach or intestines. The maximum amount of ibuprofen for adults is 800 milligrams per dose or 3200 mg per day (4 maximum doses). A child's dose of ibuprofen is based on the age and weight of the child. Carefully follow the dosing instructions provided with children's ibuprofen for the age and weight of your child. Ask a doctoror pharmacist if you have questions. Take ibuprofen with food or milk to lessen stomach upset. Shake the oral suspension (liquid) before you measure a dose. Use the dosing syringe provided, or use a medicine dose-measuring device (not a kitchen spoon). You must chew the chewable tablet before you swallow it. Store at room temperature away from moisture and heat. Do not allow the liquid medicine to freeze. What happens if I miss a dose? Since ibuprofen is used when needed, you may not be on a dosing schedule. Skip any missed dose if it's almost time for your next dose. Do not use two doses at one time. What happens if I overdose? Seek emergency medical attention or call the Poison Help line at . Overdose symptoms may include nausea, vomiting, stomach pain, drowsiness, black or bloody stools, coughing up blood, shallow breathing, fainting, or coma. What should I avoid while taking ibuprofen? Ask a doctor or pharmacist before using other medicines for pain, fever, swelling, or cold/flu symptoms. They may contain ingredients similar to ibuprofen (such as aspirin, ibuprofen, ketoprofen, or naproxen). Avoid taking aspirin unless your doctor tells you to. If you also take aspirin to prevent stroke or heart attack, taking ibuprofen can make aspirin less effective in protecting your heart and blood vessels. If you take both medicines, take ibuprofen at least 8 hours before or 30 minutes after you take aspirin (non-enteric coated form). Avoid drinking alcohol. It may increase your risk of stomach bleeding. What are the possible side effects of ibuprofen? Get emergency medical help if you have signs of an allergic reaction (hives, difficult breathing, swelling in your face or throat) or a severe skin reaction (fever, sore throat, burning eyes, skin pain, red or purple skin rash with blistering and peeling). Get emergency medical help if you have signs of a heart attack or stroke: chest pain spreading to your jaw or shoulder, sudden numbness or weakness on one side of the body, slurred speech, leg swelling, feeling short of breath. Stop using ibuprofen and call your doctor at once if you have: changes in your vision; shortness of breath (even with mild exertion); swelling or rapid weight gain; a skin rash, no matter how mild; signs of stomach bleeding--bloody or tarry stools, coughing up blood or vomit that looks like coffee grounds; liver problems--nausea, upper stomach pain, itching, tired feeling, flu-like symptoms, loss of appetite, dark urine, sandee-colored stools, jaundice (yellowing of the skin or eyes); low red blood cells (anemia)--pale skin, feeling light-headed or short of breath, rapid heart rate,trouble concentrating; or kidney problems--little or no urinating, painful or difficult urination, swelling in your feet or ankles, feeling tired or short of breath. Common side effects may include: nausea, vomiting, gas; bleeding; or dizziness, headache. This is not a complete list of side effects and others may occur. Call your doctor for medical advice about side effects. You may report side effects to FDA at 2-341-HID-8767. What other drugs will affect ibuprofen? Ask your doctor before using ibuprofen if you take an antidepressant. Taking certain antidepressants with an NSAID may cause you to bruise or bleed easily. Ask a doctor or pharmacist before using ibuprofen with any other medications, especially: cyclosporine; lithium; methotrexate; a blood thinner (warfarin, Coumadin, Jantoven); heart or blood pressure medication, including a diuretic or 'water pill'; or steroid medicine (such as prednisone). This list is not complete. Other drugs may affect ibuprofen, including prescription and rpsv-aea-htfmjef medicines, vitamins, and herbal products. Not all possible drug interactions are listed here. Where can I get more information? Your pharmacist can provide more information about ibuprofen. Remember, keep this and all other medicines out of the reach of children, never share your medicines with others, and use this medication only for the indication prescribed. Every effort has been made to ensure that the information provided by [employer] ('[employer]') is accurate, up-to-date, and complete, but no guarantee is made to that effect. Drug information contained herein may be time sensitive. [employer] information has been compiled for use by healthcare practitioners and consumers in the [place] and therefore [employer] does not warrant that uses outside of the [place] are appropriate, unless specifically indicated otherwise. [employer] drug information does not endorse drugs, diagnose patients or recommend therapy. [employer] drug information isan informational resource designed to assist licensed healthcare practitioners in caring for their p atients and/or to serve consumers viewing this service as a supplement to, and not a substitute for, the expertise, skill, knowledge and judgment of healthcare practitioners. The absence of a warningfor a given drug or drug combination in no way should be construed to indicate that the drug or drug combination is safe, effective or appropriate for any given patient. [employer] does not assume any responsibility for any aspect of healthcare administered with the aid of information [employer] provides. The information contained herein is not intended to cover all possible uses, directions, precautions, warnings, drug interactions, allergic reactions, or adverse effects. If you have questions about the drugs you are taking, check with your doctor, nurse or pharmacist. Copyright 5444-9021 [employer] Version: 22.01. Revision Date: 06/24/2020. Education Materials Chemical Burn of the Skin Your skin has been burned by a chemical. Chemicals on the skin may cause only mild irritation and redness. Or they may cause deep tissue injury. How serious the burn is depends on: What kind of chemical it was How diluted it was How long it was on your skin Home care The following guidelines will help you care for your burn at home: You may put a towel soaked in ice water on the affected area. Do this 3 to 4 times a day to ease pain or swelling. If a bandage was put on, change it every day. Watch for the warning signs of infection listed below. If the wound is open, put an antibiotic ointment on it each day to prevent infection. You may use yyqg-mtd-mrlvkny medicine to control pain, unless another medicine was prescribed. If you have chronic liver or kidney disease, talk with your healthcare provider before using acetaminophen or ibuprofen. Also talk with your provider if you've had a stomach ulcer or GI bleeding. You may use nfhy-zxw-iillciw medicine for itching. Try not to scratch or pick at the wound. Wear loose-fitting clothing. Protect your wound from the sun. Follow-up care Follow up with your healthcare provider, or as advised. When to seek medical advice Call your healthcare provider right away if any of these occur: Swelling or pain gets worse Redness gets worse Fluid or pus drains from the burn area Fever of 100.4 F (38 C) or higher, or as directed by your healthcare provider Wound doesn't heal Nausea or vomiting 3128-4151 [employer] [address] [place] [address]. All rights reserved. This information is not intended as a substitute for professional medical care. Always follow yourhealthcare professional's instructions. Additional Information VACCINATE! IT SAVES LIVES! Members of the community who have not yet received the COVID-19 vaccine and would like to receive it can visit one of [facility] vaccine clinics. There are many vaccine clinic locations within the [facility]. For locations and available times, please visit [email or web address]. It is important to note that some COVID mobile vaccine clinics are held outdoors and may be canceled in rainy orstormy conditions. To learn more about pediatric vaccinations (ages 5-11), we invite you to visit the [facility] webpage. [email or web address] learn more about the COVID-19 vaccine, we invite you to visit the [facility] website for a list of frequently asked questions. [email or web address] [facility] Patient Portal Access Instructions: Stay connected with your healthcare team and access your personal medical information anytime with the [facility] Patient Portal. If you would like a full copy of your medical records please contact the [facility] Medical Records Department Monday through Monday between 8a.m. and 4:30p.m. Please follow the directions below to access the portal: 1.Access the email account you provided upon registration to the [facility].2.Look for an invitation email from [facility].3.Open the email and access the invitation link: Accept Invitation to [facility]4.Fill in the required junior to create your account. Sign into www.[employer] with your username and password that you created in the above steps to stay up to date. You can then view a summary of results, a summary of your visits, and the ability to download your summaries to your computer or send the information securely to a physician. Remember that your healthcare information is confidential, so carefully consider who you will allow to register on the [facility] Patient Portal for access to your information. You can also access the [facility] Patient Portal on the [employer]. Simply click on Health Records under [employer] and then click on the [employer] logo. HOW TO SAFELY DISPOSE OF PRESCRIPTION MEDICATIONS Please use one of the following methods to safely dispose of your unused medications. 1.Use a drug disposal kit: the drug disposal pouch allows you to safely discard your old and unuseddrugs. Ask your nurse to give you one when you are discharged.2.Visit a local take-back location: Many local pharmacies and police departments have programs that collect old and unwanted prescriptiondrugs. Call your local pharmacy or go to http://[email or web address] Job/[email or web address] to find one close to you.3.Make use of household items: Use cat litter or old coffee grounds to dispose medications if other options arenot available. Mix your drugs with these household products, seal them in an airtight container andthrow it into the garbage. Call [facility]: [phone] to be sure your drugs can be disposed of in this way. Some medicines may require a different approach.4.Never flush your medications down the toilet. IF YOU HAVE BEEN PRESCRIBED AN OPIOIDS FOR PAIN If you have been prescribed an opioid (such as hydrocodone, oxycodone or morphine), it is critical to understand the possible side effects and risks of opioid pain medications. Even when taken as directed, opioids can have several side effects including: Tolerance, meaning you might need to take more of a medication for the same pain relief. Nausea, vomiting and/or constipation. Sleepiness, dizziness, dry mouth, confusion, depression or itching. Physical dependence, meaning you have withdrawal symptoms when a medication is stopped ? this can develop within a few days. KNOW YOUR RESPONSIBILITIES It is important to know exactly how much and how often to take the opioid pain medications you are prescribed. Never take opioids in higher amounts or more often than prescribed. Do not combine opioids with alcohol or other drugs that cause drowsiness, such as benzodiazepines, also known as benzos,including diazepam and alprazolam, muscle relaxants or sleep aids. Never sell or share prescriptionopioids. This is illegal. Store opioids in a secure place and out of reach of others (including children, family, friends and visitors). The last page(s) of this document has been signed and retained as a CHART COPY Signatures Patient Education Materials Chemical Burn, Skin Medication Leaflets cephalexin, ibuprofen My discharge plan and instructions have been reviewed and explained to me and IJERROD CARMEN J understand my current condition and have read and understand these discharge instructions. I have received a written copy of the plan/instructions. If I have questions, I am aware that I should contact my doctor. Patient/[facility] Cardiovascular Service Line Signature: Date/Time: Relationship to Patient: Witness Name/Signature: [facility] No data available for this section [facility] + Plan note Future Appointments Appointment Date:07/06/2022 02:00:00 PM Scheduled Provider: Location:RAD Appointment Type:MA Mammogram Screening Bilateral w/ Dalton Appointment Date:08/02/2022 02:30:00 PM Scheduled Provider:DEVIN FERRER MD Location:HEM ONC Appointment Type:HEM ONC OV Follow Up Future Scheduled Tests Laboratory* Phosphatidylserine Abs, IgG, IgA, IgM 07/26/22 * Cardiolipin IgG Antibodies 07/26/22 * Cardiolipin IgM Antibodies 07/26/22 * Cardiolipin IgA Antibodies 07/26/22 * Lactate Dehydrogenase 07/26/22 * Beta 2 Microglobulin 07/26/22 * Complete Blood Count 07/26/22 * Circulating Anticoagulants - Panel 07/26/22 * Complete Metabolic Panel 07/26/22 Radiology* MA Mammo Screening Bilateral w/ Dalton 07/06/22 [facility] Evaluation note* Diagnosis Onset Date Resolution Status GERD (gastroesophageal reflux disease) acute Hypothyroid acute Upper abdominal pain of unknown etiology acute Ventral hernia acute Family history of colon cancer acute GERD (gastroesophageal reflux disease) acute Hiatal hernia acute Ventral hernia acute Tobacco use chronic Depression acute Hiatal hernia acute Hypothyroid acute Leg edema acute [facility] Work Phone: Evaluation note* Diagnosis Onset Date Resolution Status CVA (cerebral vascular accident) acute Hypothyroid acute Left-sided weakness acute Occlusion and stenosis of bilateral carotid arteries acute Peripheral vascular disease acute Tobacco use chronic Pneumonia noneactive Left-sided weakness acute Peripheral vascular disease acute Insomnia noneactive Urinary frequency noneactive [facility] Work Phone: Evaluation note* Diagnosis Onset Date Resolution Status Left-sided weakness acute Occlusion and stenosis of bilateral carotid arteries acute Peripheral vascular disease acute Tobacco use chronic CVA (cerebral vascular accident) acute Depression acute Left-sided weakness acute Occlusion and stenosis of bilateral carotid arteries acute Peripheral vascular disease acute Depression acute GERD (gastroesophageal reflux disease) acute Hypothyroid acute Left-sided weakness acute Occlusion and stenosis of bilateral carotid arteries acute [facility] Work Phone: Hospital Discharge instructions No data available for this section [facility] Progress note No data available for this section [facility] Reason for referral (narrative)No reason for referral information availableWSelect [facility] Work Phone: Chief Complaint and Reason for Visit Chief Complaint 4 M FU UPPER ABDOMINAL PAIN' HERNIA Pre-Surgical Testing PAT 3 M FU Reason for Visit GERD (gastroesophage al reflux disease) Hypothyroid Upper abdominal pain of unknown etiology Ventral hernia Family history of colon cancer GERD (gastroesophageal reflux disease) Hiatal hernia Ventral hernia Tobacco use Depression Hiatal hernia Hypothyroid Leg edema [facility] Reason for Visit CVA (cerebral vascul ar accident) Hypothyroid Left-sided weakness Occlusion and stenosis of bilateral carotid arteries Peripheral vascular disease Tobacco use Pneumonia Left-sided weakness Peripheral vascular disease Insomnia Urinary frequency Chief Complaint disability ppw/fu DISABILITY PAPERWORK 3 M FU AFTERCARE Reason for Visit Left-sided weakness Occlusion and stenosis of bilateral carotid arteries Peripheral vascular disease Tobacco use CVA (cerebral vascular accident) Depression Left-sided weakness Occlusion and stenosis of bilateral carotid arteries Peripheral vascular disease Depression GERD (gastroesophageal reflux disease) Hypothyroid Left-sided weakness Occlusion and stenosis of bilateral carotid arteries Chief Complaint Admit Date YEARLY August 28, 2024 4 :25pm Hernia November 29, 2024 9:06am Reason for Visit Admit Date CVA (cerebral vascular accident) August 28, 2024 4:25pm Hypothyroid August 28, 2024 4 :25pm Ventral hernia August 28, 2024 4 :25pm Tobacco use August 28, 2024 4 :25pm Ventral hernia November 29, 2024 9:06am Hernia November 29, 2024 9:06am Family History No Family History Records Found Relationship Condition Age at Onset Recorded Date/T jahaira Not Specified Anxiety Unknown Arthritis Unknown grandmother Malignant neoplasm Unknown Diabetes mellitus Unknown Advance Directives No Advanced Directives Records Found Advance Directive Response Recorded Date/ Time Living Will No October 28, 2021 12:33pm Power of Route Rider No October 28 12:33pm Advance Directive Response Recorded Date/ Time Living Will No October 28, 2021 11:33am Power of Route Rider No October 28 11:33am Summary Purpose Additional Source Comments Goals (unrecognized section and content) Goals may be documented in a n alternate section No data available for this section No data available for this sectionGoals may be documented in an alternate section No data available for this section No data available for this sectionGoals may be documented in an alternate section No data available for this sectionGoals may be documented in an alternate section Care Team (unrecognized sect ion and content) Care Team Personnel Name: EDISON RIVERO DO Member Role: Primary Care Physician Address: Address: [address] Care Team Related Persons Name: JOSIAH BRASHER Name: HERMES ROBERTSON Name: HERMES ROBERTSON Name: HERMES ROBERTSON Care Team Personnel Name: EDISON RIVERO DO Member Role: Primary Care Physician Address: Address: [address] Care Team Related Persons Name: JOSIAH BRASHER Name: HERMES ROBERTSON Name: HERMES ROBERTSON Name: HERMES ROBERTSON Care Team Personnel Name: EDISON RIVERO DO Member Role: Primary Care Physician Address: Address: [address] Care Team Related Persons Name: JOSIAH BRASHER Patient Care team informatio n (unrecognized section and content) Team Status: Active Member Role Status Dates No Primary Care Physician Family Provider Active Dr. Edison Rivero , Primary Care Provider Active Team Status: Inactive Member Role Status Dates Dr. Edison Rivero DO Primary Care Pr ovider, Attending Provider, Referring Provider Active Team Status: Inactive Member Role Status Dates Dr. Edison Rivero DO Primary Care Provider Active Dr. Luis Vera MD Attending Provider, Referring Provider Active Team Status: Inactive Member Role Status Dates Dr. Edison Rivero DO Primary Care Provider Active Start: August 28, 2024 End: August 28, 2024 Dr. Edison Rivero DO Attending Provider Active Start: August 28, 2024 End: August 28, 2024 Dr. Edison Rivero DO Referring Provider Active Start: August 28, 2024 End: August 28, 2024 Team Status: Inactive Member Role Status Dates Dr. Edison Rivero DO Primary Care Provider Active Start: September 02, 2024 End: September 02, 2024 Dr. Edison Rivero DO Attending Provider Active Start: September 02, 2024 End: September 02, 2024 Dr. Edison Rivero DO Referring Provider Active Start: September 02, 2024 End: September 02, 2024 Team Status: Inactive Member Role Status Dates Dr. Edison Rivero DO Primary Care Provider Active Start: November 29, 2024 End: November 29, 2024 Dr. Edison Rivero DO Referring Provider Active Start: November 29, 2024 End: November 29, 2024 Dr. Drake Mejia MD Attending Provider Active Start: November 29, 2024 End: November 29, 2024 Team Status: Inactive Member Role Status Dates Dr. Edison Rivero DO Primary Care Provider Active Start: November 29, 2024 End: November 29, 2024 Dr. Drake Mejia MD Attending Provider Active Start: November 29, 2024 End: November 29, 2024 Dr. Drake Mejia MD Referring Provider Active Start: November 29, 2024 End: November 29, 2024 INFORMATION SOURCE (unrecogn ized section and content) DATE CREATED AUTHOR 10/10/2023 [facility] DATE CREATED AUTHOR AUTHOR'S ORGANIZ ATION 12/07/2024 [facility] FOR RECORDS PERTAINING TO PATIENTS WHO ARE OR HAVE BEEN ENROLLED IN A CHEMICAL DEPENDENCY/SUBSTANCEABUSE PROGRAM, SOME INFORMATION MAY BE OMITTED. This clinical summary was aggregated from multiple sources. Caution should be exercised in using it in the provision of clinical care. This summary normalizes information from multiple sources, and as a consequence, information in this document may materially change the coding, format and clinical context of patient data. In addition, data may be omitted in some cases. CLINICAL DECISIONS SHOULD BE BASED ON THE PRIMARY CLINICAL RECORDS. [facility] [employer] [facility]. provides no warranty or guarantee of the accuracy or completeness of information in this document.
--- NOTE | 2025-01-02 06:10 | CT_ITS ---
PROCEDURE: ABDOMEN/PELVIS W IV CONT ONLY 01/02/2025 REASON FOR EXAM: VENTRAL HERNIA TECHNIQUE: Abdomen and pelvis CT with intravenous contrast. Coronal and Sagittal reconstruction series were provided. PATIENT PREPARATION: Per protocol CONTRAST: 96 mL Isovue 370 One or more dose reduction techniques were used (e.g., Automated exposure control, adjustment of the mA and/or kV according to patient size, use of iterative reconstruction technique. RADIATION DOSE SUMMARY: CTDlvol: 22.8 mGy DLP: 1087 mGycm COMPARISON: CT abdomen and pelvis 09/20/2021 FINDINGS: Lung bases: Unremarkable Liver: Unremarkable Gallbladder: Incompletely distended, limiting evaluation. Spleen: Unremarkable Pancreas: Normal size without evidence of mass surrounding inflammation or ductal dilation. Adrenals: Unremarkable Kidneys: No stone or hydronephrosis. Bilateral cysts. Bladder: Unremarkable Reproductive Organs: Prior hysterectomy. Adnexal regions are unremarkable. Bowel: Moderate hiatal hernia, unchanged. There is a midline ventral hernia superior to the umbilicus containing fat and a portion of the transverse colon, with peritoneal defect measuring 5.5 cm in transverse dimension and 6.0 cm in craniocaudal dimension. No obstruction or inflammation. Normal appendix. Lymph nodes: Unremarkable Vasculature: Mild diffuse atherosclerotic calcifications are noted. Bones: Degenerative changes of the spine. CT/Abdomen/Pelvis W IV Cont ONLY IMPRESSION: 1. Epigastric hernia containing a portion of the transverse colon. No current evidence of bowel obstruction. 2. Unchanged hiatal hernia. Reading Location: [id number]
== END | disposition home or self-care (01) ==
PROVIDERS: PCP Family Medicine; Referring Provider Surgery; Visit Provider Surgery
DX: K43.9 Ventral hernia without obstruction or gangrene (principal)
CPT/HCPCS: 74177; Q9967

== ENCOUNTER 2025-05-09 09:51 | Day surgery (SDC) | payer MEDICARE, MEDICAID, SELFPAY ==
--- NOTE | 2025-05-01 08:55 | NURSING ---
PCN ALLERGY, DR ROPER OFFICE CALLED TO ADDRESS, LEFT MESSAGE WITH PURA SURG COORDINATOR
--- NOTE | 2025-05-01 09:18 | NURSING ---
VERBAL ORDER PER DR ROPER OFFICE: NO FURTHER MRSA/SSA NEEDED. PT HAS BEEN TREATED. CHANGE DOS ANCEF TO CLINDAMYCIN 900 1V X1. RX AWARE.
--- NOTE | 2025-05-05 08:26 | EKG12_ITS ---
Test Reason : PREOP Blood Pressure : */* mmHG Vent. Rate : 88 BPM Atrial Rate : 88 BPM P-R Int : 114 ms QRS Dur : 82 ms QT Int : 378 ms P-R-T Axes : 37 46 69 degrees QTcB Int : 457 ms Normal sinus rhythm Normal ECG Confirmed by RADHA ELDRIDGE, JIMMY ([id number]), television news video editor KRISTIN SILVA ([id number]) on 05/05/2025 11:41:04 AM Referred By: Drake Mejia Confirmed By: JIMMY GARCIA MD
[2025-05-05 09:22] LABS: Hematocrit 45.2 % (37-47); Hemoglobin 13.8 g/dL (12.0-15.0); Immature Granulocytes Count 0.050 X10^3/uL (0.0-0.0); Mean Corp Hgb Conc 30.5 g/dL (32-36); Mean Corpuscular Volume 90.9 fL (81-99); Mean Platelet Vol. 9.2 fl (6.2-12.0); NRBC Flagged by Analyzer 0 % (0-5); Platelet Count 420 K/mm3 (150-450); RBC Distribution Width CV 14.7 % (11.6-14.6); RBC Distribution Width SD 49.3 fl (35.1-43.9); Red Blood Count 4.97 M/mm3 (4.2-5.4); White Blood Count 11.6 K/mm3 (4.4-11.0)
[2025-05-05 10:05] LABS: Anion Gap 13 (5-15); BUN 9 mg/dL (4-19); BUN/Creat Ratio 12.1 RATIO (10-20); Calcium,Total 9.3 mg/dL (7.6-11.0); Carbon Dioxide 27.3 mmol/L (21.0-32.0); Chloride 100 mmol/L (98-108); Glucose 112 mg/dL (70-99); Potassium 4.1 mmol/L (3.3-5.1)
[2025-05-09] VITALS (16 sets, daily range): BP systolic 44–145; BP diastolic 30–87; PULSE 90–97; RESP 10–20; TEMP 36–36.6; O2SAT 83–100; BMI 39.3
[2025-05-09] MEDS: Lactated Ringers 1,000 ML 15 ML IV (10:24)
--- NOTE | 2025-05-09 10:59 | PRE.ANES_ITS ---
ASA Classification* ASA Classification ASA Classification: 3 Assessment & Plan Anesthesia* Anesthesia Assessment Anesthesia Assessment: Discussed sedation and/or anesthesia options, risks, benefits, and alternatives with patient/parents/legal guardian/POA. Questions invited. The patient/parents/legal guardian/POA seems to understand and agrees to proceed with anesthesia plan. Reviewed the physical assessment, medical history, allergy history and patient home medications list prior to surgery/procedure/anesthetic and documented any changes. Performed airway and anesthesia risk assessments. Anesthesia Type Anesthesia Type: General History Source History Obtained from:: Patient and Chart Anesthesia Focused Assessment* Temperature: 97.8 F Pulse Rate: 97 Blood Pressure: 118/66 Respiratory Rate: 18 Pulse Ox: 100 Oxygen Delivery Method: Room Air Airway Assessment Mouth opens: >3 cm Mallampati Score: III Teeth Condition: Dentures (Patient has full upper and lower dentures. They are out.) Neck Range of motion (ROM): Limited ROM (Slight Decrease) Labs Anesthesia Preop lab: CBC WBC, (4.4-11.0) 11.6 K/mm3 H 05/05/25, 08:49 RBC, (4.2-5.4) 4.97 M/mm3 05/05/25, 08:49 Hgb, (12.0-15.0) 13.8 g/dL 05/05/25, 08:49 Hct, (37-47) 45.2 % 05/05/25, 08:49 Plt Count, (150-450) 420 K/mm3 05/05/25, 08:49 CHEMISTRY Potassium, (3.3-5.1) 4.1 mmol/L 05/05/25, 08:49 Sodium, (133-145) 140 mmol/L 05/05/25, 08:49 BUN, (4-19) 9 mg/dL 05/05/25, 08:49 Creatinine, (0.70-1.20) 0.77 mg/dL 05/05/25, 08:49 Glucose, (70-99) 112 mg/dL H 05/05/25, 08:49 TSH, (0.300-4.200) 6.350 uIU/mL H 05/05/25, 08:49 COAG Pre-Assessment Diagnosis/Proposed Procedure Planned Operative Procedure(s): ROBOTIC VENTRAL HERNIA REPAIR WITH MESH Anesthesia History 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 When Was Last Pacemaker Check QUESTION #4 FULL TEXT: You/Your Family Experience fever (hyperthermia) with Anesthesia Last Oral Intake Last Oral intake: Last Oral Intake NPO since 09:00 05/09/25 10:19 Meds taken in AM with sips of water? 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 - technical marketing engineer Female Yes 05/01/25 08:33 HX of Motion Sickness No 05/01/25 08:33 HX of N/V After Surgery No 05/01/25 08:33 Non-Smoker No 05/01/25 08:33 Duration of Surgery greater Yes 05/01/25 08:33 than 60 minutes Number of Risk Factors 2 05/01/25 08:33 PONV Score Moderate Risk 05/01/25 08:33 Height & Weight Height & Weight: Anesthesia: Height & Weight Height 5 ft 3 in 05/09/25 10:19 Weight: 100.7 kg 05/09/25 10:19 Body Mass Index (BMI) 39.3 05/09/25 10:19 Respiratory Assessment Respiratory Assessment - technical marketing engineer: Respiratory Tract Infection Hx - technical marketing engineer Hx Respiratory Tract Infection No 05/01/25 08:33 Any additional information?: Yes Hx Respiratory Tract Infection: No History of Anesthesia Respiratory Infection details: allergic dry cough STOP Sleep Apnea STOP Sleep Apnea - technical marketing engineer: STOP Sleep Apnea - technical marketing engineer Hx Hypertension No 05/01/25 08:33 Hx Sleep Apnea No 05/01/25 08:33 CPAP BIPAP Do you snore loudly (louder No 05/01/25 08:33 than talking or can be heard Do you often feel tired/ No 05/01/25 08:33 fatigued/ sleepy during daytime? Has anyone observed you stop No 05/01/25 08:33 breathing during sleep? STOP Results Negative 05/01/25 08:33 QUESTION #5 FULL TEXT : Do you snore loudly (louder than talking or can be heard through closed doors)? 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 Specify any problems Hx of Preganancy in last 3 No 05/01/25 08:33 Months Nurse Filling Out Transfusion [email or web address] 05/01/25 08:33 & Questions: Date: 05/01/25 05/01/25 08:33 Time: 08:36 05/01/25 08:33 Patient unable to answer at this time (ie. confused, unrespo /Reproduction History /Reproductive History - technical marketing engineer: /Reproductive Hx- technical marketing engineer Hx Now No 05/01/25 08:33 Gestational Age (in weeks): EDC: Hx Hx Para Hx Section SAB No 05/01/25 08:33 Active Medications Active Medications: Current Medications Generic Name Dose Route Start Last Admin Trade Name Freq PRN Reason Stop Dose Admin Clindamycin Phosphate 900 mg in 50 mls @ 75 mls/hr 05/09/25 11:30 Cleocin IV 05/09/25 12:09 INTRAOP ONE Lactated Ringer's 1,000 mls @ 15 mls/hr 05/09/25 10:15 05/09/25 10:24 IV 15 mls/hr .Q48H EDMUNDO Administration PFSH Medical History Marijuana use High cholesterol Smoker CVA (cerebral vascular accident) Wears dentures Post-menopausal Thyroid disease History of hiatal hernia Gastric reflux Hoarseness Chronic cough History of pain when walking History of edema History of irregular heartbeat Depression Chronic neck pain Arthritis GERD (gastroesophageal reflux disease) Home Medications ?Medication ?Instructions ?Recorded ?Last Taken ?Type albuterol sulfate 90 mcg/actuation 2 puff inhalation Q 6H PRN 05/31/22 Unknown History aerosol inhaler shortness of breath or wheez ing fluticasone propionate 50 1 spray intranasal BID PRN 1 Unknown Rx mcg/actuation nasal allergies, congestion #16 gr ams spray,suspension levothyroxine 75 mcg tablet 75 mcg PO DAILY #90 tabs 0 09/03/24 Unknown Rx clopidogrel 75 mg tablet 75 mg PO DAILY #90 tabs 09/2905/03/25 Rx lansoprazole 30 mg capsule,delayed 30 mg PO DAILY ACID REFLUX #90 caps 10/23/24 05/09/25 Rx release (Prevacid) chlorhexidine gluconate 4 % 1 applic topical ONCE #473 mL 12/03/24 Unknown Rx topical liquid (Hibiclens) mupirocin 2 % topical ointment 1 applic topical BID #1 5 grams 12/03/24 Unknown Rx furosemide 40 mg tablet 40 mg PO Q OTHER DAY WATER P ILL 12/26/24 05/09/25 Rx #30 tabs atorvastatin 40 mg tablet 40 mg PO DAILY #90 tabs 01/2905/09/25 Rx dextromethorphan-guaifenesin 30 1 tab PO Q12H PRN coug h 05/01/25 05/08/25 History mg-600 mg tablet extended [id number] hr (Mucinex DM) Allergy/AdvReac Type Severity Reaction Status Date / Time Penicillins (PCN) Allergy Anaphylaxis Verified 05/09/25 10:17 Family History Grandmother Cancer cervical Diabetes Other Anxiety Arthritis Surgical History H/O carotid endarterectomy Hx of tubal ligation History of hysterectomy Social History Smoking Status: Current every day smoker tobacco type: cigarettes Tobacco: How many years used: 35 alcohol intake: never substance use type: does not use what type of physical activity do you participate in: walking frequency: daily Review of Systems (Anesthesia) ROS Narrative System reviewed and no additional complaints, except as documented.
--- NOTE | 2025-05-09 11:01 | HP.PCM_ITS ---
History and Physical Date of Admission: 05/09/25 Date of Service: 02/10/25 MR#: [id number] Acct: [id number] Name: BRITTANY ROBERTSON Rep #: [id number] : 1970 Provider: Dr. Drake Mejia MD Age/Sex: 54/F Location: [facility] Status: Signed Intake Vital Signs 11/29/2508:22 02/10/2515:07 Height 5 ft 3 in 5 ft 3 in Weight: 210 lb 210 lb 6 oz BMI 37.2 37.3 BP 105/68 111/72 Blood Pressure Location Rt brachial Rt brachial Position Sitting Sitting Respiration 18 18 Pulse 92 121 H Pulse Source Monitor Monitor Temp 97.8 F 97.2 F L Temp Source Temporal Temporal Pulse Oximetry (%) 96 96 Oxygen Delivery Method room air room air Intake Visit Reasons: REVIEW CT RESULTS Chief Complaint: review CT results Is patient in pain?: Yes Allergies Penicillins (PCN) Allergy (Verified 02/10/25 15:08) Anaphylaxis Medications ?Medication ?Instructions ?Recorded ?Confirmed ?Type albuterol sulfate 90 mcg/actuation 2 puff inhalation Q6H PRN 05/31/2202/10 History aerosol inhaler fluticasone propionate 50 1 spray intranasal BID PRN 05/03/2301/28 Rx mcg/actuation nasal allergies, congestion #16 grams spray,suspension levothyroxine 75 mcg tablet 75 mcg PO DAILY #90 tabs 09/03/24 Rx clopidogrel 75 mg tablet 75 mg PO DAILY #90 tabs 10/23/24 5 Rx lansoprazole 30 mg capsule,delayed 30 mg PO DAILY ACID REFLUX #90 caps 09/2902/10/25 Rx release (Prevacid) tirzepatide 2.5 mg/0.5 mL 2.5 mg (0.5 mL) subcut QWEEK #2 mL 11/1102/10/25 Rx subcutaneous pen injector (Mounjaro) atorvastatin 40 mg tablet 40 mg PO DAILY #90 tabs 11/21/24 5 Rx chlorhexidine gluconate 4 % 1 applic topical ONCE #473 mL 12/03/24 0 02/10/25 Rx topical liquid (Hibiclens) mupirocin 2 % topical ointment 1 applic topical BID #15 grams 12/03/24 02/10/25 Rx furosemide 40 mg tablet 40 mg PO Q OTHER DAY WATER PILL 12/26/24 02/10/25 Rx #30 tabs PFSH Medical History CVA (cerebral vascular accident) Wears dentures Post-menopausal Thyroid disease History of hiatal hernia Gastric reflux Smoker Hoarseness Chronic cough History of pain when walking History of edema History of irregular heartbeat Depression Chronic neck pain Arthritis GERD (gastroesophageal reflux disease) Surgical History H/O carotid endarterectomy Hx of tubal ligation History of hysterectomy Family History Grandmother Cancer cervical Diabetes Other Anxiety Arthritis Social History Smoking Status: Current every day smoker (1/2 ppd ) tobacco type: cigarettes Tobacco: How many years used: 35 alcohol intake: never substance use type: does not use what type of physical activity do you participate in: walking frequency: daily HPI HPI HPI: Patient is a 54-year-old female who presents for a follow-up visit related to a complaint of an increasingly symptomatic ventral hernia. She initially established care related to a upper endoscopy that was performed October 17Patient last seen 11/29/[address] imaging of her abdomen and pelvis in the interim on 01/02/2025. She apologizes for running late to her last visit and is pleased to discuss surgery further today. She reports that she is not necessarily experience more pain and that she is going to the bathroom fine but she is concerned about the appearance of her abdomen. She confirms she has refrain from any straining. She also reports that she has not yet completed a move to [place]. Sadly, she was declined for Mounjaro therapy with Medicare coverage due to an absence of a diabetes comorbidity. She notes that she has cut back on smoking but not cut it out completely. She does report some constipation later in the visit which she attributes to her water pill. She states that she is trying to drink more water but questions if there is any other recommendation. On hearing this, I asked patient when her last colonoscopy was completed and she estimates some 8 years ago in [place]. She is unsure of what the recommended follow-up was at that exam. As remainder of patient's history is reviewed, we discussed her history of a stroke and her status post right carotid endarterectomy. She states that she did follow-up with vascular surgery postoperatively but was advised there was nothing to be done about her left carotid artery stenosis. She then mentions that she recently received a solicitation to repeat her surveillance imaging and is due for a follow-up this year. She denies any new neurologic concerns. Below is recapitulated from patient's prior visit for ease of review: Patient is a 54-year-old female who presents for a follow-up visit related to a complaint of an increasingly symptomatic ventral hernia. She initially established care related to a upper endoscopy that was performed September 2021. In the interim since that time patient unfortunately suffered a stroke but is pleased to report that she has largely regained any dysfunction/deficits on her left side. She also reports that she did not remember being evaluated for her hernia previously. She states that despite the history neurologically, most of her trouble is with her hernia. She reports that it is uncomfortable with coughing and going to the bathroom. She also complains that it seems to affect her balance adversely. She endorses some growth. She confesses to some weight gain related to inactivity following her stroke. She reports that she has been prescribed Mounjaro but has not yet started this medication. Patient is not working at present but does take care of her daughter's dogs. She otherwise denies any participation in strenuous activity. The activity she does do she denies any shortness of breath. She is still smoking following her stroke and reports quitting successfully for only 13 days. As an update from her prior visit she reports that her reflux is okay as long as she is compliant with her PPI medication. Ms. Robertson reports that a move out of [place] is imminent and that she is moving with her daughter to [place] in the next couple weeks. She states she remains committed to having her care here in [place] and has no issues with any follow-up visits here. Patient has no personal history of recurrent cutaneous infections including staph. Pertinent surgical history includes: Hysterectomy ROS General General: Yes weight change (gain) and fatigue; No appetite, colon cancer, breast cancer or weakness HEENT HEENT: No difficulty swallowing, eye injury, eye surgery, swollen glands or hoarseness Endo Endocrine: Yes thyroid disease; No diabetes mellitus, thyroid cancer, Hair loss, heat intolerance or cold intolerance Skin Skin: No rash or changing moles Musc Musculoskeletal: No back problems, arthritis, rheumatoid arthritis, gout or joint pain Cardio Cardiovascular: No murmur, pacemaker, heart disease, atrial fibrillation, high blood pressure, heart attack, heart stent, palpitations, shortness of breath with exertion or chest pain Psych Psychiatric: No depression, anxiety or hearing voices Resp Respiratory: No shortness of breath, No sleep apnea, No cough, No COPD, No asthma, No emphysema and No wheezing Gastro Gastrointestinal: Yes abdominal pain, Yes nausea or vomiting, Yes diarrhea, Yes constipation, No blood in stool, Yes acid reflux, No hemorrhoids, No ulcers, Yes gallbladder problem and No black,tarry stools Jesús Hematologic: Yes blood thinners, No blood disorders, No bleeding, No anemia and No blood clots Neuro Neurologic: No numbness, No tingling, No weakness and Yes other (Stroke 2021) Exam Const General: cooperative and anxious Resp Other: Mildly tachypneic GI Other: Large ventral hernia but minimal true abdominal distention. Soft, mild tenderness with deep palpation. I am unable to fully reduce the hernia and patient reports some discomfort with the attempt. There is no overlying skin change or discoloration. Assessment and Plan Assessment and Plan (1) Hernia: (2) Ventral hernia: Status: Acute Comment: This is a 50-year-old female with a newly?diagnosed ventral hernia containing fat. At this time, patient experiences very little discomfort from this according to her history. She is uncertain and timing of when it first occurred. I have shared with her that this could certainly be addressed surgically, but that her current use of tobacco and recent weight gain would potentially jeopardize her ability to realize a durable repair. Update 11/29/2024: Patient now a 54-year-old female with interval CVA, thankfully recovered, who has developed increasing discomfort from her ventral hernia. By exam it is difficult to reliably determine the diameter of her fascial defect or the contents of the hernia. It is possible that the neck remains relatively stable in size and she has simply herniated more of her viscera into the hernia sac, but if my exam is true she would otherwise have experience approximately doubling in the size of the hernia. This is based on CT imaging from 2021 that showed the diameter of the epigastric hernia at 3 cm but my exam now showing a possible fascial defect of 6 cm. Further, patient complains of some increased discomfort around the time of bowel movements. It is with the above uncertainty in these reports of negative impact of bowel movements that I would like to obtain updated CT imaging. It is my hope that this will show, clearly, the size of the fascial defect, the contents of the hernia, and thereby inform a surgical approach. At 6 cm patient should still be a candidate for primary fascial defect closure with mesh underlay. (Patient was noted to have an additional smaller umbilical hernia in 2021 and we will look to reevaluate this hernia as well) would plan to attempt this robotically. Patient is once again informed that her obesity and persistent smoking habit remain risks for recurrence. Emeli franklin the interest in updated imaging I have encouraged her to begin the prescribed Mounjaro as a means of beginning her weight loss journey and hopefully tightening her glucose control perioperatively. She is informed that this medication will need to be held preoperatively once scheduled. Update 02/10/2025: Patient completed the requested CT imaging which shows that her hernia has approximately doubled in size (the epigastric hernia) and she maintains a much smaller umbilical hernia. The epigastric hernia now contains a nonobstructed loop of transverse colon. I shared that between the hernias contents and its growth I would recommend we proceed with a hernia repair. I recommended we proceed with a robot-assisted ventral hernia (and umbilical) repair with mesh. However, as we began discussing the logistics of this procedure it became clear that patient is due for surveillance on her left carotid artery stenosis. When I uncovered this information I strongly urged patient to keep this surveillance visit and then proceed with surgery scheduling of vascular surgery deems her to be a permissible risk. There is a carotid artery duplex study on this EMR that shows severe disease of the left extracranial ICA and I want patient to be optimized as much as medically possible before undergoing this SD elective surgery. She is to discuss plans for potential surgery with vascular surgery and let us know if follow-up. Plan: ? Await results of pending surveillance visit with vascular surgery for diagnosis of carotid artery stenosis ? Tentatively plan for robot-assisted ventral hernia repair with mesh. Disposition expected: Outpatient. Patient to require 5-day hold of Plavix preoperatively I have examined the patient the following changes are noted: We received preoperative clearance from vascular surgery to proceed as well as hold Plavix preoperatively. Patient confirms that she has held her Plavix for the past 6 days. She states that she has felt somewhat better of late but still has discomfort from her hernia. She notes that she has had 1 small bowel movement per day but has required some MiraLAX lately. Procedure details were r eviewed?including possible need to make an incision over the hernia to get it fully reduced if it is not able to be achieved in a minimally invasive fashion. I also discussed possible overnight observational stay if indicated by her clinical status. Patient confirms acceptance. Therefore we will proceed to the operating room for robot-assisted ventral hernia repair with mesh placement.
[2025-05-09] MEDS: Midazolam 2 MG/2 ML Syringe IV (11:27)
[2025-05-09] MEDS: Lidocaine 1% (5 ml sdv) 5 ML Vial IV (11:35)
[2025-05-09] MEDS: BUPIVACAINE LIPOSOME/PF 20 ML VIAL OPERA.SITE (12:10)
[2025-05-09] MEDS: 0.9% Normal Saline (Pres. free 10 ML Vial (12:10)
[2025-05-09] MEDS: fentaNYL 100 MCG/2 ML Ampul 200 MCG IV (12:15)
[2025-05-09] MEDS: Lactated Ringers 3,000 ML 3000 ML IV (14:28)
--- NOTE | 2025-05-09 15:41 | PCM.POST.ANE ---
Anesthesia: Postop Eval I Current Vital Signs Temperature: 96.8 F Pulse Rate: 91 Blood Pressure: 130/87 Respiratory Rate: 20 Pulse Ox: 94 Oxygen Delivery Method: Nasal Cannula Oxygen Flow Rate (L/min): 2 Assessment Airway patent: Yes Spontaneous unlabored respirations: Yes Mental status: Awake and Calm nausea: No Vomiting: No Anesthesia Complication: No Fluid Hydration Crystalloid volume administer (ml): 2,300 Total IV fluid infused: 2,300 Progress Note Anesthesia document: Postop Eval 1 completed: Yes
--- NOTE | 2025-05-09 15:57 | SUR.PHASEI ---
1541; overheard page for anesthesia to pacu bedside d/t hypotension/blood pressure readings. Patient arousable throughout. Follows commands. BP cuff moved to right leg. dr. zhang at bedside. BPs return to baseline.
--- NOTE | 2025-05-09 16:31 | SUR.PHASEI ---
report given in elyse padron
--- NOTE | 2025-05-09 16:34 | PCM.OPRPT ---
Operative Report (Standard) Operative Information Date of Procedure: 05/09/25 Pre-Operative Diagnosis: Incarcerated ventral hernia Post-Operative Diagnosis: Incarcerated epigastric hernia Surgery/Procedure Performed: 1. Robot assisted ventral hernia repair via intrapertioneal onlay mesh technique 2. Transversus abdominis plane block nuclear radiation engineer: Yes Sap Basis Consultant: Tova Singh Tasks completed by fws faculty assistant: Opening & closing, Trocar (adjustment) and Other (inserting and removing materials to/from peritoneal cavity) Type of Anesthesia: General/Supplemental RN Documented Start/Stop Times: Operation Date: 05/09/25 11:30 Case Time Into Pre-Op 05/09/25 10:11 Anesthesia Start 05/09/25 11:27 Into Room 05/09/25 11:27 Out of Pre-Op 05/09/25 11:27 Procedure Start 05/09/25 12:06 Procedure End 05/09/25 15:23 Anesthesia End 05/09/25 15:31 Out of Room 05/09/25 15:31 Into Recovery 05/09/25 15:35 Out of Recovery 05/09/25 17:00 Into Phase II Recovery 05/09/25 17:01 Out of Phase II 05/09/25 17:59 Procedure Start Time: 12:06 Procedure Stop Time: 15:23 Select all DRAINS/GRAFTS/IMPLANTS that apply: Implanted device (Ventralight mesh 15 x 10 cm) Implanted device details: Reference [id number], Lot [id number] Estimated Blood Loss: 25 Specimen collected: No Description of surgery: After appropriate identification in the preoperative holding area, the patient was brought to the operating room suite where she was positioned supine the operating table. Preoperative antibiotics were administered. Patient was then induced with a general anesthetic. She was positioned with a bump under the left side and the table was broken at the level of the ASIS. Patient's abdomen was prepped and draped in the usual sterile fashion. A formal timeout followed to confirm patient and procedure. Procedure was begun with a Veress entry at Olmos's point. Once the set point pressure was reached, this Veress needle was exchanged for an optical trocar and an optical entry was made in this location. Laparoscopic investigation revealed no inadvertent injury to the viscera below. A transversus abdominis plane block was created with a total of 85 mL of saline mixed with Exparel and bupivacaine under laparoscopic guidance. Then 2 additional 8 mm robotic trocars were placed along the left abdominal wall laterally with approximately 10 cm spacing. Inspection of the peritoneal cavity revealed a large ventral hernia containing a large amount of omentum and a segment of the transverse colon. Gentle blood firm traction was placed on the abdominal wall over the area of the hernia defect to try to manually reduce the hernia contents. Simultaneously a laparoscopic grasper was used to provide downward traction on the hernia contents?primarily the omental portion. This resulted in reduction of the colon back to the peritoneal cavity as well as a large amount of the omental contents. However, a significant portion remained adherent to the hernia sac as was clearly evident when firmer traction was applied externally. With this result, the robot was then brought in and docked in standard fashion. Robotically patient's hernia defect was inspected. There was significant scarring between the peritoneum and the hernia contents. With downward traction and selective monopolar electrocautery the omental hernia contents were from the hernia sac and fully reduced to the peritoneum. Several areas of the omentum vascular supply tore with the necessary traction and were immediately addressed with bipolar energy until we achieved hemostasis. With reduction complete, I made a brief attempt at beginning a preperitoneal approach to this hernia repair, however, the peritoneum was exceptionally thin and the hernia sac scarring exceptionally dense. Thus this approach resulted in tearing of the peritoneum and was quickly abandoned and I resolved to perform an intraperitoneal onlay approach. There was a continuous adhesion between the area of the patient's falciform ligament and the hernia sac superiorly so this was taken down with monopolar scissors. Additionally there was a moderate amount of preperitoneal fat that would have affected the lie of our ventral mesh so this was taken down from the backside of the posterior rectus sheath with selective electrocautery to try to avoid any injury to the abdominal wall itself. This process of clearing the fascia was continued in all directions until it appeared we had adequate width for the mesh placement. The hernia defect was then measured with an inserted ruler and confirmed preoperative CT imaging that it spanned 6 cm in both the transverse and longitudinal directions. This fascial defect was closed with a 12 inch #1 stratafix suture by running the fascial defect closed and then running the suture back upon itself with several throws. Next a 10 x [address] mesh was introduced into the peritoneum and a 3-0 V-Loc suture was used to chandelier the mesh. This V-Loc suture was then run towards the operating side of the opening. A 3-0 Vicryl suture was then used to tack this mesh against the posterior rectus sheath in 4 quadrants and ensure appropriate positioning relative to the defect. The mesh was then circumferentially approximated along its perimeter using serial 3-0 V-Loc sutures in a running fashion. This resulted in a nice flat lie of the mesh against the anterior abdominal wall. Satisfied with this result the needles, inserted Ray-Rachel, and inserted ruler were removed from the peritoneum under laparoscopic visualization. Case counts were correct. There is a small amount of clotted blood from the reduction of the hernia contents that I sought to evacuate to minimize risk for patient to form adhesions postoperatively so I rescrubbed and, after undocking the robot, use this device to irrigate and suction the clot off the surface of the omentum. Once aspiration of this introduced fluid was complete, pneumoperitoneum was released. The robot was then undocked and the trocars were removed. Additional local anesthetic was instilled and the port sites were closed with interrupted 4-0 Monocryl in subcuticular fashion. Steri-Strips and OpSite dressings were applied. Patient was transferred to PACU for ongoing care. Surgical Findings: ? Large chronically incarcerated epigastric hernia containing a small section of transverse colon as well as abundant omentum Complications Complications: No Admit VTE Documentation VTE Mechan Device Prophylaxis: SCD's
--- NOTE | 2025-05-09 16:39 | POSTOPAN2_ITS ---
Anesthesia Postop Eval I Sum Postop Eval Completion status Anesthesia document: Postop Eval 1 completed: Yes Anesthesia Postop Eval I Summary Anesthesia Postop Eval I Summary: Anesthesia Postop Eval I: Assessment Summary Airway patent Yes 05/09/25 15:42 [email or web address] Spontaneous unlabored Yes 05/09/25 15:42 [email or web address] [email or web address] respirations Mental status Awake,Calm 05/09/25 15:42 [email or web address] [email or web address] nausea No 05/09/25 15:42 [email or web address] Vomiting No 05/09/25 15:42 [email or web address] Anesthesia Postop Eval I: Fluid Summary Crystalloid volume administer 2,300 05/09/25 15:42 [email or web address] (ml) Colloids volume administered ( ml) Blood Product volume administered (ml) Total IV fluid infused 2,300 05/09/25 15:42 [email or web address] Anesthesia Postop Eval I: Summary Notes Anesthesia Complication No 05/09/25 15:42 [email or web address] Anesthesia Complication Comment: Post-operative progress note Anesthesia: Postop Eval II Evaluation Mental status: Awake and Calm Pain Level: 1 nausea: No Vomiting: No Complications Anesthesia Complication: No
--- NOTE | 2025-05-09 16:39 | PCM.POSTANE2 ---
Anesthesia Postop Eval I Sum Postop Eval Completion status Anesthesia document: Postop Eval 1 completed: Yes Anesthesia Postop Eval I Summary Anesthesia Postop Eval I Summary: Anesthesia Postop Eval I: Assessment Summary Airway patent Yes 05/09/25 15:42 FIRE INVESTIGATION [email or web address] Spontaneous unlabored Yes 05/09/25 15:42 FIRE INVESTIGATION [email or web address] respirations Mental status Awake,Calm 05/09/25 15:42 FIRE INVESTIGATION [email or web address] nausea No 05/09/25 15:42 FIRE INVESTIGATION [email or web address] Vomiting No 05/09/25 15:42 FIRE INVESTIGATION [email or web address] Anesthesia Postop Eval I: Fluid Summary Crystalloid volume administer 2,300 05/09/25 15:42 FIRE INVESTIGATION [email or web address] (ml) Colloids volume administered ( ml) Blood Product volume administered (ml) Total IV fluid infused 2,300 05/09/25 15:42 FIRE INVESTIGATION [email or web address] Anesthesia Postop Eval I: Summary Notes Anesthesia Complication No 05/09/25 15:42 FIRE INVESTIGATION [email or web address] Anesthesia Complication Comment: Post-operative progress note Anesthesia: Postop Eval II Evaluation Mental status: Awake and Calm Pain Level: 1 nausea: No Vomiting: No Complications Anesthesia Complication: No
--- NOTE | 2025-05-09 16:44 | DCINST_ITS ---
Discharge Instructions Diet Discharge Diet: No restrictions Activity Discharge Activity: May Not Drive (While taking narcotic pain medication) and May Shower May shower in (days): 2 Ice area for (Minutes): 20 Lifting Restrictions: No lifting greater than 10 pounds for the next 5 weeks Dressing / Incision Call your doctor if your incision/area has: Continuous Slow Oozing, Increased Pain/ Swelling, Increased Redness, Foul Smelling Discharge and Swelling at the incision site Call your doctor if you observe: Fever of 101 or Higher, Inability to urinate and Inability to have a bowel movement Change Dressing in: 2 days (Please leave Steri-Strips intact until they fall off spontaneously or are taken off at your follow-up visit) Remove Dressing in: 2 days Cleanse incision/area with: Soap & Water and Keep Dressing Clean & Dry Additional Dressing/Incision Instructions:: Please wear abdominal binder while up and about until follow-up with surgery Follow Up Care Please Follow Up With: Drake Mejia MD When: 7 to 10 days postop Test Results: Test results from this visit will be discussed in further detail at your follow- up appointment, if applicable. Discharge Plan Admission Primary Reason for Your Visit: Hernia repair Attending Provider: Drake Mejia Primary Care Provider: Javier Rivero Consulting Providers: Brian Vera Instructions Additional Instructions / Restrictions: Please plan to resume Plavix 48 hours postop Print Language: Lithuanian Discharge Orders/Prescriptions Prescriptions: New oxycodone 5 mg tablet 5 mg PO Q6H PRN (Reason: pain) 3 Days Qty: 10 0RF nystatin 100,000 unit/gram powder 1 applic topical BID Qty: 30 0RF Continued albuterol sulfate 90 mcg/actuation HFA aerosol inhaler 2 puff inhalation Q6H PRN (Reason: shortness of breath or wheezing) fluticasone propionate 50 mcg/actuation spray,suspension 1 spray intranasal BID PRN (Reason: allergies, congestion) Qty: 16 3RF Rx Instructions: administer into each nostril Mucinex DM 30-600 mg tablet extended release 12 hr 1 tab PO Q12H PRN (Reason: cough) levothyroxine 75 mcg tablet 75 mcg PO DAILY Qty: 90 3RF clopidogrel 75 mg tablet 75 mg PO DAILY Qty: 90 1RF lansoprazole [Prevacid] 30 mg capsule,delayed release(DR/EC) 30 mg PO DAILY Qty: 90 1RF mupirocin 2 % ointment 1 applic topical BID Qty: 15 0RF Rx Instructions: apply to qtip into bilateral nares x1week chlorhexidine gluconate [Hibiclens] 4 % liquid 1 applic topical ONCE Qty: 473 0RF Rx Instructions: shower with once daily x1 week furosemide 40 mg tablet 40 mg PO Q OTHER DAY Qty: 30 2RF atorvastatin 40 mg tablet 40 mg PO DAILY Qty: 90 0RF Referrals / Follow Up: Javier Rivero DO [Primary Care Provider, Internal Medicine] Disposition Disposition (needs filled in before D/C Order can be placed): Home, Self Care
== END 2025-05-09 17:59 | disposition home or self-care (01) ==
LOC: SDC 09:52 → AC 09:53
PROVIDERS: Anesthesiology; PCP Family Medicine; Referring Provider Surgery; Visit Provider Surgery
PROC: (CPT 49594; principal; 2025-05-09 11:10)
DX: K43.6 Other and unspecified ventral hernia with obstruction, without gangrene (principal); I65.22 Occlusion and stenosis of left carotid artery; Z68.37 Body mass index [BMI] 37.0-37.9, adult; K21.9 Gastro-esophageal reflux disease without esophagitis; F17.210 Nicotine dependence, cigarettes, uncomplicated; E66.9 Obesity, unspecified; Z79.85 Long-term (current) use of injectable non-insulin antidiabetic drugs; Z79.01 Long term (current) use of anticoagulants; Z79.02 Long term (current) use of antithrombotics/antiplatelets; K66.0 Peritoneal adhesions (postprocedural) (postinfection)
CPT/HCPCS: 49594; S2900; 00830; 36415; 80048; 84443; 85025; 93005; C1781; J0666; J2405

== ENCOUNTER → 2025-05-16 | Outpatient (CLI) | payer MEDICARE, MEDICAID, SELFPAY ==
--- NOTE | 2025-05-16 14:00 | CT_ITS ---
PROCEDURE: CT ABDOMEN/PELVIS WITH CONTRAST 05/16/2025 REASON FOR EXAM: ABD PAIN AND REDNESS TECHNIQUE: Procedure Code: [id number] Modality: CT Procedure: ABDOMEN/PELVIS WITH CONTRAST Coronal and Sagittal reconstruction series were provided. CONTRAST: Isovue-300 VOLUME: 96 mL One or more dose reduction techniques were used (e.g., Automated exposure control, adjustment of the mA and/or kV according to patient size, use of iterative reconstruction technique. RADIATION DOSE SUMMARY: DLP: 1334.99 mGycm COMPARISON: 01/02/2025 FINDINGS: Lung bases: Clear. Liver: Unremarkable. Gallbladder: Unremarkable. Spleen: Unremarkable. Pancreas: Unremarkable. Adrenals: Unremarkable. Kidneys: Unremarkable. No hydronephrosis. Bladder: Unremarkable. Reproductive Organs: Prior hysterectomy. Unremarkable adnexal regions. Bowel: Small-moderate hiatal hernia containing the stomach fundus and GE junction. Otherwise unremarkable without evidence of obstruction or active inflammatory process. Normal appendix. Dense/compact stool burden in the distal rectosigmoid colon. Lymph nodes: No enlarged abdominopelvic lymph nodes. Vasculature: Normal caliber abdominal aorta. Mild atherosclerotic disease. Peritoneum / Retroperitoneum: No ascites or pneumoperitoneum. Large fat containing supraumbilical abdominal hernia measures 14.8 x 6.9 cm in axial plane, with a narrow neck. Reported clinical history of recent hernia repair; with the previously herniated segment of the transverse colon reduced since prior exam. New prominent fat stranding and edematous fluid within the hernia sac, as well as internal soft tissue gas, which may be postoperative in nature but is concerning for hernia recurrence with fat incarceration/strangulation. Possible superimposed infection and/or fat necrosis due to the extensive surrounding subcutaneous and anterior peritoneal fat infiltration. Bones: Mild multilevel degenerative changes of the spine. CT/Abdomen/Pelvis WITH Contrast IMPRESSION: Large fat containing supraumbilical ventral hernia, with reported recent hernia repair. New prominent internal and surrounding fat stranding/edematous fluid, as well as internal locules of soft tissue air; this may be postoperative in nature but is concerning for hernia recurrence with incarceration/strangulation, and possible superimposed infection and/or fat necrosis. Small-moderate hiatal hernia. Reading Location: [id number]
== END | disposition home or self-care (01) ==
LOC: CT 13:59
PROVIDERS: PCP Family Medicine; Referring Provider Surgery; Visit Provider Surgery
DX: R10.9 Unspecified abdominal pain (principal); Z98.890 Other specified postprocedural states; Z87.19 Personal history of other diseases of the digestive system
CPT/HCPCS: 74177; Q9967

== ENCOUNTER → 2025-05-19 | Outpatient (CLI) | payer MEDICARE, MEDICAID, SELFPAY | END | disposition home or self-care (01) | LOC: LABSPEC 15:41 | PROVIDERS: PCP Family Medicine; Referring Provider Surgery; Visit Provider Surgery | DX: Z98.890 Other specified postprocedural states (principal); Z87.19 Personal history of other diseases of the digestive system | CPT/HCPCS: 87070; 87205 ==